=== PATIENT | female | born 1960 | race Caucasian/White ===

== ENCOUNTER → 2017-11-01 | Outpatient (CLI) | payer BC, OTHER ==
[2017-03-26 12:47] VITALS: BMI 52.8
[~2017-11-01] MED LIST: ALBU8.5H IH; BUDE10.2 INH; BUPR-474 PO; CIPR-214 PO; DOCU-416 PO; DULA0.75 INJ; GABA-549 PO; GLIP-154 PO; HYDR-385 PO; HYDR-4309 PO; LISI5TAB25 PO; LORA-630 PO; METF-420 PO; MONT10TA PO; OMEP40CA48 PO; ONDA4TAB97 PO; OXYB10TA21 PO; OXYB15TA17 PO; OXYC-865 PO; PHEN200T32 PO; PRAM0.1221 PO; SIMV-49 PO; SULF-198 PO; TAMS0.4C25 PO; TRAZ150T8 PO
--- NOTE | 2017-11-01 17:22 | RADIOLOGY IMAGING REPORT ---
FACILITY: [facility] [place]IENT NAME: Shani Butler : 1960 MR: [id number] V: [id number] EXAM DATE: ORDERING PHYSICIAN: PATRICIA GOODWIN TECHNOLOGIST: Location: [facility] - [place] Patient: Shani Butler : 1960 Visit/Account:[id number] Date of Sevice: 11/01/2017 ABDOMEN PELVIS ESWL CYSTO W/O HISTORY: Kidney stones, left-sided pain TECHNIQUE: Axial images acquired through the abdomen/pelvis. Coronal and sagittal reformatting also performed. No IV contrast administered. Dose Lowering Technique One of the following dose optimization techniques was utilized in the performance of this exam: Autom ated exposure control; adjustment of the mA and/or kV according to the patient's size; or use of an i terative reconstruction technique. Specific details can be referenced in the facility's radiology C T exam operational policy. COMPARISON: June 12, 2017 FINDINGS: Visualized lung bases: Again noted is incompletely imaged 1 cm nodule anterior medial inferior right middle lobe. There is an additional 4 mm noncalcified nodule inferior aspect of the lingula on imag e six of series 3 and a 3 mm subpleural nodule posterior aspect the right lower lobe best seen on neelima ge 13 of series 3. There is a 5 mm subpleural nodule posterior aspect of the left lower lobe best se en on image 67 and several other tiny nodules in the lower lobes . These all appear unchanged when compared to the prior study Hepatobiliary: Hepatomegaly. Cholelithiasis although no evidence of biliary ductal dilatation Spleen: Negative. Adrenals: Mild thickening of the adrenal glands similar to the prior study Pancreas: Negative. Kidneys ureters and bladder: At least three calcif calcifications are seen in the lower pole calyces of the right kidney, the largest measuring approximately 6 mm x 2 mm. there are multiple calcificati ons in the left renal collecting system but appears similar to the prior study in size and number. T he largest on the left measures approximately 1.5 x 0.8 cm there is no evidence of hydronephrosis or hydroureter. On the sagittal images are suggestion of a faintly opaque space-occupying process along the floor the bladder. There are numerous artifacts present for this could be artifactual although bladder mass not excluded. Genitalia: Uterus appears atrophic GI: Negative. Vessels/spaces/nodes: Negative. Bones/soft tissues: There are numerous artifacts from pedicle screws and short segment posterior fix ation rods at L4, L5 and S1. Additional findings: None pertinent. IMPRESSION: There are nonobstructing calcifications in both renal collecting systems. The greatest burden is on the left. There is no evidence of hydronephrosis or hydroureter On the sagittal images there suggestion of a faintly opaque space-occupying process along the floor t he bladder. There are numerous artifacts present there for this could be artifactual although a blad irwin mass cannot be totally ruled out Hepatomegaly Cholelithiasis although no evidence of biliary ductal dilatation Multiple bilateral pulmonary nodules. The largest measures 1 cm in diameter. These all appear relat ively unchanged when compared to June 12, 2017 For nodules this size in a low-risk patient (minimal or absent smoking history, no history of malignancy), a 3-6 month follow-up CT is recommended, then consider CT at 18-24 months. In a high risk patient, (smoking or malignancy history), a CT at 3-6 mon ths then at 18-24 months is recommended. Additional chronic findings as described Report Dictated By: Faye Colvin MD at 11/01/2017 5:06 PM Report E-Signed By: Faye Colvin MD at 11/01/2017 5:18 PM WSN:[email or web address]
== END ==
LOC: CT 01:32
PROVIDERS: ATTEND Urology
DX: N20.0 Calculus of kidney (principal); R91.8 Other nonspecific abnormal finding of lung field; R16.0 Hepatomegaly, not elsewhere classified; K80.20 Calculus of gallbladder without cholecystitis without obstruction
CPT/HCPCS: 74176

== ENCOUNTER 2017-12-05 00:52 | Day surgery (SDC) | payer BC ==
[2017-03-26 12:47] VITALS: Ht 172.7 cm; Wt 155.6 kg
--- NOTE | 2017-12-02 14:54 | HISTORY AND PHYSICAL ---
DATE OF ADMISSION: December 05, 2017 CHIEF COMPLAINT Bilateral kidney stones with left greater than right. 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 She subsequently underwent stent placement with treatment of her infection and was subsequently taken to the operating room in March and April for extracorporeal shock wave lithotripsy. Her stent was removed in the office afterwards. A followup CT stone protocol was performed, and she was still noted to have some significant residual stone fragments in the left system which had not significantly changed since her last followup x-ray in May. She also had two stones in the right side which were slightly increased in size, the largest measuring approximately 6 x 3 mm. Options were discussed including percutaneous nephrostomy tube with PCNL versus ESWL versus ureteroscopy. The patient is significantly reluctant to undergo a percutaneous nephrostomy tube placement with treatment. I have informed her that she will likely need two to three treatments to render her stone-free. The current plan is to perform anesthetic cystoscopy, followed by left stent placement with extracorporeal shock wave lithotripsy with a planned return to the operating room in four to six weeks afterwards for stent removal with likely ureteroscopy to remove any remaining stone fragments. After the left side is complete, we will address the right and then proceed with metabolic evaluation. PAST MEDICAL HISTORY 1. Hypercholesterolemia. 2. Obesity. 3. Gastroesophageal reflux disease. 4. Chronic low back pain. 5. Hypertension. 6. Anxiety with depression. 7. Type 2 diabetes. 8. Kidney stones. 9. Anemia. 10. Asthma. 11. Obstructive sleep apnea, on CPAP. 12. Restless leg syndrome. 13. Pulmonary nodules. PAST SURGICAL HISTORY 1. Low back surgery. 2. As per HPI. 3. Colonoscopy. CURRENT MEDICINES 1. Albuterol. 2. Symbicort. 3. Wellbutrin. 4. Neurontin. 5. Oxygen. 6. Glipizide. 7. Hydrocortisone. 8. Acetaminophen. 9. Lorazepam. 10. Metformin. 11. Singulair. 12. Omeprazole. 13. Mirapex. 14. Simvastatin. 15. Trazodone. 16. CPAP. ALLERGIES No known drug allergies. FAMILY HISTORY Noncontributory. SOCIAL HISTORY The patient lives in [place], [place]. She does have a smoking history in the past. REVIEW OF SYSTEMS The patient denies a productive cough, chest pain, fever, chills, nausea, vomiting, gross hematuria, change in weight, bleeding disorder, chronic headaches, or muscle weakness. PHYSICAL EXAMINATION GENERAL: The patient is a well-developed, moderately obese, white female in no acute distress. HEENT: Normocephalic, atraumatic. CHEST: Clear to auscultation bilaterally. CARDIOVASCULAR: Regular rate and rhythm. ABDOMEN: Soft, nontender. No masses are palpated. GENITOURINARY: Deferred to the OR. EXTREMITIES: Without clubbing, cyanosis, or edema. NEUROLOGIC: Nonfocal. IMPRESSION A 57-year-old white female with several medical problems with bilateral kidney stones, left greater than right. PLAN We will perform anesthetic cystoscopy, left stent placement, followed by extracorporeal shock wave lithotripsy. We will plan to return to the operating room in four to six weeks for stent removal and followup stone treatment as indicated. CHE
[2017-12-03 17:08] LABS: PLATELET COUNT, AUTOMATED 334 K/uL (150-450)
[2017-12-03 17:18] LABS: INR 0.98
[2017-12-05] VITALS (8 sets, daily range): BP systolic 109–137; BP diastolic 74–88
[~2017-12-05] VITALS: Ht 172.7 cm; Wt 155.6 kg
[~2017-12-05 00:52] MED LIST changes: +BUS5 PO
[2017-12-05] MEDS ORDERED: fentaNYL CITR 100 MCG/2 ML AMP ONE ×3 (09:02→13:58)
[2017-12-05] MEDS ORDERED: PROPOFOL EMUL(*) 10MG/ML 20 ML 20 ML ONE ×3 (09:03→12:03)
[2017-12-05] MEDS ORDERED: LIDOCAINE 2% IV 100 MG/5ML SYR ONE (09:03)
[2017-12-05] MEDS: NORMOSOL R SOLN(*) 1000 ML BAG 1,000 ML IV PRN ×2 (09:44→13:00)
[2017-12-05] MEDS ORDERED: FAMOTIDINE 20 MG TAB PO ONE (10:05)
[2017-12-05] MEDS ORDERED: LIDOCAINE/SOD BICARB 8.4% SYR ID ONE (10:05)
[2017-12-05] MEDS ORDERED: ceFAZolin(*) 2GM/D5W 50ML 50 ML IVPB ONE (10:05)
[2017-12-05] MEDS ORDERED: MIDAZOLAM 2 MG/2 ML VIAL IVP PRN (10:05)
--- NOTE | 2017-12-05 10:53 | RADIOLOGY IMAGING REPORT ---
FACILITY: [facility] - [place] PATIENT NAME: Shani Butler : 1960 MR: [id number] V: [id number] EXAM DATE: ORDERING PHYSICIAN: PATRICIA GOODWIN TECHNOLOGIST: Location: [facility] - [place] Patient: Shani Butler : 1960 Visit/Account:[id number] Date of Sevice: 12/05/2017 ABDOMEN PELVIS ESWL CYSTO W/O HISTORY: Kidney stones TECHNIQUE: Axial images were obtained through the abdomen and pelvis without intravenous contrast . One of the following dose optimization techniques was utilized in the performance of this exam: autom ated exposure control; adjustment of the mA and/or kv according to patient size; or use of iterative reconstruction technique. Specific details can be referenced in the facility's radiology CT exam oper ational policy. CONTRAST: None COMPARISON: CT abdomen/pelvis 11/01/2017 FINDINGS: Visualized lung bases: Negative. Hepatobiliary: Gallstones. Spleen: Negative. Adrenals: Negative. Pancreas: Negative. Kidneys/ureters/bladder: Reidentified are multiple nonobstructing bilateral renal calculi. Branchin g calculi within the lower pole the left kidney measuring up to 8 x 8 mm (coronal image 134). No rad iopaque ureteral calculus. No discrete bladder calculus. No hydronephrosis. Bowel/peritoneum/mesentery: Normal appendix. Mild colonic diverticulosis without acute inflammatory change. Vessels: Negative. Lymph nodes: Stable mildly enlarged bilateral external iliac lymph node measuring 1.4 x 1.4 cm on the right (image 149). Stable mildly enlarged bilateral inguinal lymph nodes with fatty hilum. Pelvic genitourinary: Negative. Bones/body wall: L4-S1 posterior fusion. Multilevel [id number]-[id number] degenerative disc disease with in the spine. Tiny umbilical hernia containing fat. Other findings: None significant IMPRESSION: 1. Reidentified are multiple nonobstructing bilateral renal calculi measuring up to 8 x 8 mm. No ur eteral calculus or hydronephrosis. 2. Gallstones. 3. Stable mildly enlarged bilateral external iliac and inguinal lymph nodes. Report Dictated By: Baldemar Mayorga MD at 12/05/2017 10:38 AM Report E-Signed By: Baldemar Mayorga MD at 12/05/2017 10:48 AM WSN:[id number]
[2017-12-05] MEDS ORDERED: IOPAMIDOL-200 50 ML VIAL IS ONE (11:34)
[2017-12-05] MEDS ORDERED: DEXAMETHASONE SOD 4 MG/ML VIAL ONE (11:58)
[2017-12-05] MEDS ORDERED: ONDANSETRON 4 MG/2 ML VIAL ONE (11:59)
[2017-12-05] MEDS ORDERED: SUCCINYLCHOL CHL 200MG/10ML VL ONE (12:00)
[2017-12-05] MEDS ORDERED: NS 0.9% 3000 ML IRRIGATION BAG IR ONE (12:10)
[2017-12-05] MEDS ORDERED: PROPOFOL EMUL(*) 10MG/ML 20 ML 40 ML ONE (12:17)
[2017-12-05] MEDS ORDERED: WATER STERILE IRRIG(*) 1000ML 1,000 ML ONE (12:58)
[2017-12-05] MEDS ORDERED: BELLADONNA ALK/OPIUM 60MG SUPP PR ONE (13:24)
[2017-12-05] MEDS ORDERED: TAMS0.4C25 PO (13:36)
[2017-12-05] MEDS ORDERED: OXYB15TA14 PO (13:37)
[2017-12-05] MEDS ORDERED: PHEN200T32 PO (13:38)
[2017-12-05] MEDS ORDERED: IBUP600T22 PO (13:39)
[2017-12-05] MEDS ORDERED: APAP/HYDROCODONE 325/5 TAB ONE (15:24)
[2017-12-05] MEDS ORDERED: busPIRone HCL 5 MG TAB PO ONE (15:50)
--- NOTE | 2017-12-06 08:42 | OPERATIVE REPORT 1 ---
EVENT DATE: December 05, 2017 SURGEON: Dimas Escalante MD ANESTHESIOLOGIST: Pal Whitman MD ANESTHESIA: General. PREOPERATIVE DIAGNOSIS Bilateral renal calculi. POSTOPERATIVE DIAGNOSIS Bilateral renal calculi. PROCEDURE PERFORMED 1. Cystoscopy. 2. Left internal double J ureteral stent placement. 3. Left extracorporeal shockwave lithotripsy of mid pole and lower pole calculi on left. ESTIMATED BLOOD LOSS Minimal. IV FLUIDS Crystalloids. DRAINS 6 Ethiopian x 24 cm Contour stent on left. COMPLICATIONS None. CONDITION Patient taken to the recovery room awake and in stable condition. 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 She subsequently underwent stent placement followed by lithotripsy x 2. Patient returned to the clinic this past fall with continued significant stone burden. Options were discussed, including percutaneous nephrostomy tube placement versus ureteroscopy and/or repeat ESWL. She has elected to undergo the latter. She understands that with her remaining stone burden, these likely appear to be several remaining fragments in her mid and lower pole calyceal system. I would like to perform a stent placement for passive ureteral dilation with ESWL to be followed by ureteroscopy with removal of stone fragments in several weeks. She will also need treatment of her right side, which has been showing slight increase in size over the past nine months, and will ultimately require metabolic evaluation. DESCRIPTION OF PROCEDURE PERFORMED Patient was brought to the operating room, and after general anesthetic was obtained, she was placed in the dorsal lithotripsy position on the cystoscopic table and prepped and draped in usual sterile manner. Anesthetic cystoscopy was performed using the 21-Ethiopian rigid sheath and 30 degree lens. She had a normal-appearing urethra without bladder neck inflammatory polyps or strictures. Upon entering her bladder, it was smooth without lesions or abnormalities. The left ureteral orifice was cannulated with a 6 Ethiopian open end access catheter, which was advanced to the mid ureter under fluoroscopic imaging. A 0.035 wire was placed up into the lumen of the access catheter. The access catheter was removed, and the wire was used to place a 6 Ethiopian x 24 cm stent. The wire was removed. She was noted to have good curling in the bladder by direct vision and good curling in the lower pole calyces by fluoroscopic imaging. The patients bladder was drained through the cystoscopic sheath. She was then repositioned supine, and the stone collection in the mid pole was placed in the lithotripsy cross hairs in two dimensions. Treatment was begun at a power setting of 2 and gradually increased to a power setting of 3 over the course of the first 300 shocks. A 3-minute pause was then performed, and treatment was resumed. The power was gradually increased to a power setting of 9 over the course of the first 1500 shocks. Following this, the cross hairs were placed down on the lower pole calculi. Again, treatment was begun here at a power setting of 7.5 and gradually increased to a power setting of 9. She received a total of 3000 shocks to the left mid and lower pole stones. At the conclusion of treatment, no significant stone fragments could be identified. She was awakened in the operating room and taken to the recovery area in stable condition. The plan will be to allow the patient to be discharged home today on Flomax, Colace, Barling, Pyridium, Ditropan XL and Motrin. We will have her return to the operating room in approximately 2-4 weeks for stent removal ureteroscopy and followup ESWL as indicated. CHE
== END 2017-12-05 14:30 | disposition home or self-care (01) ==
LOC: OR 00:52
PROVIDERS: ATTEND Urology
DX: N20.0 Calculus of kidney (principal); E11.9 Type 2 diabetes mellitus without complications; I10 Essential (primary) hypertension; E78.00 Pure hypercholesterolemia, unspecified; Z79.899 Other long term (current) drug therapy; G47.33 Obstructive sleep apnea (adult) (pediatric); D64.9 Anemia, unspecified; M54.5 Low back pain; E66.9 Obesity, unspecified; K21.9 Gastro-esophageal reflux disease without esophagitis; Z99.81 Dependence on supplemental oxygen; F41.9 Anxiety disorder, unspecified; F32.9 Major depressive disorder, single episode, unspecified; Z87.442 Personal history of urinary calculi; G25.81 Restless legs syndrome; J45.909 Unspecified asthma, uncomplicated
CPT/HCPCS: 36415; 36416; 50590; 52332; 74176; 81001; 82948; 85025; 85610; 94667; J0330; J1100; J2001; J2405; J2704; J3010; J0690; Q9966

== ENCOUNTER → 2017-12-09 | Outpatient (CLI) | payer BC ==
[2017-03-26 12:47] VITALS: BMI 52.8
[~2017-12-09] MED LIST changes: +IBUP600T22 PO; +OXYB15TA14 PO
--- NOTE | 2017-12-09 14:55 | RADIOLOGY IMAGING REPORT ---
FACILITY: PATIENT NAME: Shani Butler : 1960 MR: [id number] V: [id number] EXAM DATE: ORDERING PHYSICIAN: PATRICIA GOODWIN TECHNOLOGIST: Location: [place] [facility] - [place] Patient: Shani Butler : 1960 Visit/Account:[id number] Date of Sevice: 12/09/2017 ADDENDUM #1 Findings of no acute abnormality telephoned directly to the ordering provider by the radiology ISC. Report Dictated By: Ryland Hyatt MD at 12/09/2017 2:52 PM Report E-Signed By: Ryland Hyatt MD at 12/09/2017 2:53 PM ORIGINAL REPORT INDICATION: . Check position of nephroureteral stent. DATE: 12/09/2017 2:49 PM. TECHNIQUE: KUB SINGLE VIEW ABDOMEN COMPARISON: CT December 05, 2017 FINDINGS: The nephroureteral stent is within the bladder distally and probably within renal pelvis pr oximally, although the kidney is poorly defined radiographically. IMPRESSION: As above. Report Dictated By: Ryland Hyatt MD at 12/09/2017 2:49 PM Report E-Signed By: Ryland Hyatt MD at 12/09/2017 2:50 PM WSN:[id number]
== END ==
LOC: RAD 14:02
PROVIDERS: ATTEND Urology
DX: N20.0 Calculus of kidney (principal)
CPT/HCPCS: 74018

== ENCOUNTER 2017-12-22 03:15 | Day surgery (SDC) | payer BC ==
[2017-03-26 12:47] VITALS: Ht 172.7 cm; Wt 155.1 kg
--- NOTE | 2017-12-21 17:22 | HISTORY AND PHYSICAL ---
DATE OF ADMISSION: December 22, 2017 DIAGNOSIS Bilateral renal calculi with left indwelling ureteral stent. HISTORY OF PRESENT ILLNESS Patient is a 57-year-old female who originally presented with emphysematous pyelitis in March of this past year secondary to a 1.2 cm UPJ stone, in addition to having several smaller stones. She subsequently underwent stent placement and appropriate antibiotic treatment, and then had lithotripsy times two performed in the summer. In followup she was noted to have an increasing stone burden on the right side, as well as increasing in her residual stones on the left. She currently has three areas in the left lower pole consistent with retained stone fragments, each measuring approximately 13 x 5 in area. She subsequently was taken back to the operating room on December 05, and underwent left double-J stent placement followed by left extracorporeal shock wave lithotripsy of these lower mid pole stones. She is now being returned to the operating room for planned follow-up stage ureteroscopy with laser fragmentation and/or removing of any remaining stone fragments. PAST MEDICAL HISTORY 1. Hypercholesterolemia. 2. Obesity. 3. Gastroesophageal reflux disease. 4. Chronic low back pain. 5. Hypertension. 6. Anxiety. 7. Type 2 diabetes. 8. Kidney stones. 9. Anemia. 10. Obstructive sleep apnea on CPAP. 11. Asthma. 12. Restless leg syndrome. 13. Pulmonary nodules. PAST SURGICAL HISTORY 1. Low back surgery. 2. Colonoscopy. 3. Extracorporeal shock wave lithotripsy with left renal stent placement as per HPI. CURRENT MEDICINES 1. Albuterol. 2. Symbicort. 3. Wellbutrin. 4. Neurontin. 5. Oxygen. 6. Glipizide. 7. Hydrocortisone. 8. Acetaminophen. 9. Lorazepam. 10. Metformin. 11. Singulair. 12. Omeprazole. 13. Mirapex. 14. Simvastatin. 15. Trazodone. 16. CPAP. ALLERGIES No known drug allergies. FAMILY HISTORY Noncontributory. REVIEW OF SYSTEMS Patient denies chest pain productive cough, fevers, chills, nausea, vomiting, bleeding disorder, chronic headaches. She has been complaining of some moderate left flank pain and bladder irritating symptoms consistent with stent discomfort. PHYSICAL EXAMINATION GENERAL: Patient is a well-developed, moderately obese white female in no acute distress. HEENT: Exam is normocephalic, atraumatic. CHEST: Clear to auscultation bilaterally. CARDIOVASCULAR: Regular rate and rhythm. ABDOMEN: Soft, nontender. No masses are palpated. GENITOURINARY: Exam is deferred to the OR. EXTREMITIES: Exam without clubbing, cyanosis or edema. NEUROLOGIC: Exam is nonfocal. IMPRESSION A 57-year-old white female with bilateral kidney stones with left greater than right, with current indwelling stent on the left side status post lithotripsy two and a half weeks ago. PLAN We will perform anesthetic cystoscopy, stenst removal, ureteroscopy with laser fragmentation and removing of remaining left stone fragments. Patient understands she has a significant stone burden on this left side which may require several ureteroscopy type treatments to render her stone free. She has also been given the option for percutaneous nephrolithotomy several times in the past which she has declined. CHE
[~2017-12-22] VITALS: Ht 172.7 cm; Wt 155.1 kg
[2017-12-22] MEDS ORDERED: ceFAZolin(*) 1 GM VIAL 1 GM in NS(*) 0.9% 100 ML ADDVANT BAG 100 ML IV ONE (08:20)
[2017-12-22] MEDS ORDERED: MIDAZOLAM 2 MG/2 ML VIAL IVP PRN (08:20)
[2017-12-22] MEDS ORDERED: ceFAZolin(*) 2GM/D5W 50ML 50 ML IVPB ONE (08:20)
[2017-12-22] MEDS ORDERED: LIDOCAINE/SOD BICARB 8.4% SYR ID ONE (08:20)
[2017-12-22] MEDS ORDERED: FAMOTIDINE 20 MG TAB PO ONE (08:20)
[2017-12-22] MEDS ORDERED: NORMOSOL R SOLN(*) 1000 ML BAG 1,000 ML IV PRN (08:20)
[2017-12-22 09:36] LABS: INR 0.92
[2017-12-22] MEDS ORDERED: PROPOFOL EMUL(*) 10MG/ML 20 ML 20 ML ONE ×2 (09:39→10:02)
[2017-12-22] MEDS ORDERED: DEXAMETHASONE SOD PHOS 10MG/ML ONE (10:02)
[2017-12-22] MEDS ORDERED: ONDANSETRON 4 MG/2 ML VIAL ONE ×2 (10:02→16:03)
[2017-12-22] MEDS ORDERED: LIDOCAINE MPF 1% 5 ML VIAL ONE ×2 (10:02→13:41)
[2017-12-22 10:06] VITALS: BP 111/77
[2017-12-22] MEDS ORDERED: fentaNYL CITR 250 MCG/5 ML AMP ONE (10:08)
[2017-12-22] MEDS ORDERED: IOPAMIDOL-200 50 ML VIAL IS ONE (10:52)
[2017-12-22] MEDS ORDERED: KETOROLAC 30 MG/ML VIAL ONE ×2 (10:59→16:03)
[2017-12-22] MEDS ORDERED: SUCCINYLCHOL CHL 200MG/10ML VL ONE (11:00)
[2017-12-22] MEDS ORDERED: HALOPERIDOL LACT 5 MG/ML VIAL IM ONE (11:34)
[2017-12-22] MEDS ORDERED: BELLADONNA ALK/OPIUM 60MG SUPP PR ONE (12:09)
[2017-12-22] MEDS ORDERED: WATER STERILE IRRIG(*) 1000ML 1,000 ML ONE (13:02)
[2017-12-22] MEDS ORDERED: FUROSEMIDE 40 MG/4 ML VIAL ONE (13:46)
[2017-12-22] MEDS ORDERED: fentaNYL CITR 100 MCG/2 ML AMP ONE (14:20)
--- NOTE | 2017-12-22 14:23 | RADIOLOGY IMAGING REPORT ---
FACILITY: [facility] - [place] PATIENT NAME: Shani Butler : 1960 MR: [id number] V: [id number] EXAM DATE: ORDERING PHYSICIAN: PATRICIA GOODWIN TECHNOLOGIST: Location: [facility] - [place] Patient: Shani Butler : 1960 Visit/Account:[id number] Date of Sevice: 12/22/2017 ABDOMEN PELVIS ESWL CYSTO W/O HISTORY: L ESWL TECHNIQUE: Axial images acquired through the abdomen/pelvis. Coronal and sagittal reformatting also performed. No IV contrast administered. Dose Lowering Technique One of the following dose optimization techniques was utilized in the performance of this exam: Autom ated exposure control; adjustment of the mA and/or kV according to the patient's size; or use of an i terative reconstruction technique. Specific details can be referenced in the facility's radiology C T exam operational policy. COMPARISON: December 05, 2017 FINDINGS: Visualized lung bases: Negative. Hepatobiliary: Liver is incompletely imaged although the visualized portion of the liver appears unr emarkable. There are multiple gallstones although no evidence of biliary ductal dilatation Spleen: Incompletely imaged although the visualized portion appears unremarkable Adrenals: Incompletely imaged although the visualized portion appears unremarkable Pancreas: Incompletely imaged although the visualized portion appears unremarkable Kidneys ureters and bladder: Again noted are nonobstructing calculi in both renal collecting systems there is now a left ureteral stent in place the stone burden in the left kidney appears slightly less no calculi are seen along the course of the left ureteral stent. Genitalia: Negative. GI: Mild colonic diverticulosis without evidence of acute diverticulitis Vessels/spaces/nodes: Fatty replaced bilateral inguinal lymph nodes appear unchanged as are the bila teral external iliac lymph nodes. The 1.4 x 1.4 right external iliac lymph node specifically has re mained stable Bones/soft tissues: Small focal hernia containing fat. Postoperative changes of the lumbar spine ap pear similar to the prior study as to the spondylotic changes throughout remainder the lumbar spine Additional findings: None pertinent. IMPRESSION: There are nonobstructing renal calculi bilaterally. The stone burden on the left appear slightly dec reased Interval placement of a left ureteral stent with no calculi seen along the course of the stent Cholelithiasis although no evidence of biliary ductal dilatation Stable bilateral external iliac and inguinal lymph nodes Additional chronic findings as described Report Dictated By: Faye Colvin MD at 12/22/2017 2:01 PM Report E-Signed By: Faye Colvin MD at 12/22/2017 2:19 PM WSN:[email or web address]
[2017-12-22] MEDS ORDERED: PER PO (14:31)
[2017-12-22] MEDS ORDERED: PHENAZOPYRIDINE 200 MG TAB ONE (14:46)
--- NOTE | 2017-12-22 15:08 | RADIOLOGY IMAGING REPORT ---
FACILITY: [facility] PATIENT NAME: Shani Butler : 1960 MR: [id number] V: [id number] EXAM DATE: ORDERING PHYSICIAN: PATRICIA GOODWIN TECHNOLOGIST: Location: [facility] Patient: Shani Butler : 1960 Visit/Account:[id number] Date of Sevice: 12/22/2017 RETROGRADE PYELOGRAM Indication: URETERAL STONES Comparison: None. Findings: Images from a left retrograde ureterogram are obtained. Final image demonstrates a left si ded double J stent. IMPRESSION: Intraoperative images from a left-sided double-J stent. Radiation dose: AK 119.28 mGy Report Dictated By: Yo Boothe at 12/22/2017 3:03 PM Report E-Signed By: Yo Boothe at 12/22/2017 3:04 PM WSN:[id number]
[2017-12-22 15:40] VITALS: BP 106/69
[2017-12-22 15:45] VITALS: BP 111/63
[2017-12-22] MEDS ORDERED: OXYTOCIN 10 UNIT/ML SDV ONE (16:03)
[2017-12-22] MEDS ORDERED: ePHEDrine 25 MG/5 ML DISP.SYR IVP ONE (16:03)
[2017-12-22 16:07] VITALS: BP 105/65
[2017-12-22 16:09] VITALS: BP 116/78
--- NOTE | 2017-12-22 19:41 | OPERATIVE REPORT 1 ---
EVENT DATE: December 22, 2017 SURGEON: Dimas Escalante MD ANESTHESIOLOGIST: Kane Kim MD ANESTHESIA: General anesthetic. PREOPERATIVE DIAGNOSIS Left renal calculi. POSTOPERATIVE DIAGNOSIS Left renal calculi. PROCEDURES PERFORMED 1. Cystoscopy. 2. Grasping and removal of left double-J ureteral stent. 3. Left retrograde flexible ureteroscopy through a ureteral access sheath with grasping and removal of multiple stones numbering close to 200. 4. Replacement of left internal double-J ureteral stent. ESTIMATED BLOOD LOSS Minimal. INTRAVENOUS FLUIDS Crystalloid. DRAINS A 6-Omani x 26 cm Contour stent on left. PATHOLOGY Multiple stone fragments sent to Pathology for analysis. COMPLICATIONS None. CONDITION The patient was taken to the recovery room awake and in stable condition. STATEMENT OF MEDICAL NECESSITY The patient is a 67-year-old white female with a history of kidney stones who several months ago presented with a large UPJ stone and pyelitis. She was subcutaneously treated. She underwent lithotripsy of the stone. In addition to the stone at the UPJ, she had several stones in the lower pole measuring 4 to 8 mm in size. A followup x-ray revealed significant improvement in the stone burden on that side. However, on a delayed followup, she was noted to have an increasing stone burden on that side as well as new stones on the right side which have increased in size. Her preoperative x-ray today reveals four stones in the right kidney measuring from 3 to 6 mm in size. On the left side, she has multiple collections of stone fragments in mainly the lower pole. This is less than it was two weeks ago before lithotripsy. She is now being brought to the operating room for staged ureteroscopy to fragment and/or remove any of the remaining stone fragments on the left side after being pre-stented for two weeks. DESCRIPTION OF OPERATION PERFORMED The patient was brought to the operating room after general anesthetic was obtained. She was placed in the dorsal lithotomy position and prepped and draped in the usual sterile fashion. Anesthetic cystoscopy was performed with the 21-Omani Wei sheath and a 30-degree lens. The stent was seen emanating from the left ureteral orifice. Its distal end was grasped and brought out through the meatus. The lumen of the stent was cannulated with a sensor wire which was advanced up to the upper pole calyx. The stent was then removed, and then this wire was used to place an 18 dilating system with a second wire placed alongside the first wire inside the 10 sheath. The 10 sheath was removed. One wire was secured to the drapes as a safety wire, and the next wire was used to place ureteral access sheath. An 11 x 13-Omani x 36 cm access sheath was used. First, the obturator was placed over the wire which was advanced easily up to the mid ureter, and the obturator was then removed and replaced in the sheath. The combination was advanced over the wire under fluoroscopic imaging up to the proximal ureter. At this point, the obturator removed leaving the sheath in place. The Wei flexible ureteroscope was advanced, and a retrograde renoureteroscopy was performed. The entire kidney starting at the upper pole proceeding to the lower pole was inspected. There were no residual stone fragments in the upper pole calyces. There were a few in the mid pole. The majority of stone fragments were noted in the posterior lower pole calyces. There was a significant number of fragments in the lower pole with the largest fragment measuring approximately 3 mm in size. At this point, vigorous irrigation of the lower pole calyces was performed to irrigate and move the stone fragments up to the upper and mid poles. After this was performed, the [employer] basket was next used to sequentially engage and grasp stone fragments under direct vision and bring them down the ureteral access sheath where they were collected. This was done multiple times over the course of two hours. A total of approximately 200 stone fragments were sequentially grasped and removed. No fragments were identified that were too large to be removed through the 13-Omani access sheath. After two hours of extensive ureteroscopy and grasping of these fragments, visualization began to deteriorate from a slight bleeding from the urothelium. At this point, I again inspected each calyx, this time starting in the lower pole and irrigating them vigorously. There were no stones visualized in any of the three lower pole calyces. There were one to two smaller fragments in the mid pole and a handful of smaller fragments in the upper pole. No fragment was larger than 2 mm in size. At this point the scope was removed, followed by gentle removal of the access sheath under fluoroscopic imaging. The safety wire was then backloaded into the cystoscope, and this was used to place a 6-Omani x 26 cm Contour stent on the left side. The wire was removed. She was noted to have good curling in an upper pole calyx and good curling in the bladder by direct vision. The patient's bladder was drained through the cystoscopic sheath. A B and O suppository was given per rectum at the conclusion of the case. She was awakened in the operating room and taken to the recovery area in stable condition. PLAN The plan will be to allow the patient to be discharged home today on Percocet, Colace, Motrin, Ditropan XL 15 mg, Pyridium, and Flomax. We will have the patient return to the operating room in approximately two weeks' time to ensure that the left system is stone-free with removal of the stent at that time and then proceed with ureteroscopy and/or extracorporeal shock wave lithotripsy on the right side before proceeding with a metabolic evaluation. CHE
[2017-12-27] MEDS ORDERED: LISI5TAB25 PO (15:13)
== END 2017-12-22 15:40 | disposition home or self-care (01) ==
LOC: OR 03:15
PROVIDERS: ATTEND Urology
DX: N20.0 Calculus of kidney (principal); E11.9 Type 2 diabetes mellitus without complications; I10 Essential (primary) hypertension; D64.9 Anemia, unspecified; E66.9 Obesity, unspecified; K21.9 Gastro-esophageal reflux disease without esophagitis; F41.9 Anxiety disorder, unspecified; Z87.442 Personal history of urinary calculi; G47.33 Obstructive sleep apnea (adult) (pediatric); Z79.899 Other long term (current) drug therapy; Z99.81 Dependence on supplemental oxygen
CPT/HCPCS: 36415; 36416; 52332; 52352; 74176; 74420; 82365; 82948; 84703; 85610; 88300; C1758; C1769; C1894; C2617; J0330; J1100; J1630; J1885; J1940; J2001; J2250; J2405; J2590; J2704; J3010; Q9966; J0690

== ENCOUNTER 2017-12-26 14:19 | Emergency (ER) | payer BC ==
[2017-03-26 12:47] VITALS: Wt 155.1 kg
[~2017-12-26 14:19] MED LIST changes: +PER PO
[2017-12-26 14:25] VITALS: BP 125/85
[2017-12-26] MEDS ORDERED: NITROGLYCERIN 0.4 MG SUBL SL ONE (14:40)
[2017-12-26] MEDS ORDERED: ASPIRIN 81 MG CHEW PO ONE (14:40)
--- NOTE | 2017-12-26 14:49 | EKG ---
[place] [facility] [place] NAME: AMEE OROSCO : [id number] MR: [id number] V: [id number] EXAM DATE: ORDERING PHYSICIAN: GEORGE JONES TECHNOLOGIST: NAIMA Wilhelm Reason : CHEST PAIN Blood Pressure : / mmHG Vent. Rate : 077 BPM Atrial Rate : 077 BPM P-R Int : 166 ms QRS Dur : 092 ms QT Int : 394 ms P-R-T Axes : 057 056 062 degrees QTc Int : 445 ms Normal sinus rhythm Normal ECG When compared with ECG of 25-MAR-2017 11:32, No significant change was found Confirmed by KATIE BLANTON ([id number]) on 12/27/2017 4:08:53 AM Referred By: KAREN Confirmed By:KATIE BLANTON
[2017-12-26] MEDS ORDERED: LORazepam 2 MG/ML VIAL IVP ONE (14:50)
--- NOTE | 2017-12-26 14:54 | ER Report ---
History and Physical Time Seen By MD: 14:25 Hx. of Stated Complaint: LEFT SHOULDER, CHEST PAIN, AND LEFT ARM PAIN SINCE TUESDAY HPI/ROS CHIEF COMPLAINT: Chest pain HISTORY OF PRESENT ILLNESS: 57-year-old female without history of cardiac events or stroke presents with left-sided shoulder pain that is sharp and has been intermittent since lithotripsy on . About 6 out of 10 at this time. Denies associated nausea or diaphoresis or shortness of breath. Denies recent cough or cold viral syndrome syndrome or sore throat. Denies leg pain or swelling. Denies prior blood clots. Denies estrogen replacement therapy. Denies smoking. She admits to moderate to severe stress levels recently due to multiple causes. She is here today with her daughter. No other concerns or complaints today. REVIEW OF SYSTEMS: Constitutional: No fever, no chills. Eyes: No discharge. ENT: No sore throat. Cardiovascular: No syncope or near-syncope, no palpitations. Respiratory: No cough, no shortness of breath. Gastrointestinal: No abdominal pain, no vomiting. Genitourinary: No hematuria. Musculoskeletal: No back pain. Skin: No rashes. Neurological: No headache. Allergies: Coded Allergies: No Known Drug Allergies (Unverified , 06/12/17) Home Meds Active Scripts Ondansetron Hcl (ZOFRAN) 4 Mg Tablet, 4 MG PO Q6H Y for NAUSEA/VOMITING, #10 Prov:THOMAS KELLOGGYaritza Palafox DO 06/12/17 Reported Medications Oxycodone/Acetaminophen (OXYCODONE/ACETAMINOPHEN 5MG/325 MG) 5 Mg/325 Mg Tab, 1- 2 TAB PO Q6H Y for PAIN, #40 12/22/17 Ibuprofen (IBUPROFEN) 600 Mg Tablet, 1 TAB PO Q6H Y for PAIN, #20 TAB 12/05/17 Phenazopyridine Hcl (PHENAZOPYRIDINE HCL) 200 Mg Tablet, 200 MG PO TID Y for DISCOMFORT, #30 TAB 12/05/17 Oxybutynin Chloride (OXYBUTYNIN CHLORIDE ER) 15 Mg Tab.er.24, 15 MG PO QDAY Y for DISCOMFORT, TAB.SA 12/05/17 Tamsulosin Hcl (FLOMAX) 0.4 Mg Cap.er.24h, 0.4 MG PO DAILY, #30 CAP 12/05/17 Buspirone Hcl (BUSPIRONE HCL) 5 Mg Tab, 10 MG PO BID, #20 TAB 11/29/17 Docusate Sodium (COLACE) 100 Mg Capsule, 100 MG PO BID, #30 CAPSULE 05/23/17 Gabapentin (GABAPENTIN) 300 Mg Capsule, 300 MG PO EVENINGS, CAPSULE 05/17/17 Simvastatin (SIMVASTATIN) 20 Mg Tablet, 20 MG PO HS, TAB 03/25/17 Dulaglutide (Trulicity) 0.75 Mg/0.5 Ml Pen.injctr, 0.5 ML INJ QWEEK 03/25/17 Bupropion Hcl (WELLBUTRIN XL) 300 Mg Tab.er.24h, 300 MG PO QDAY, TAB 03/25/17 Glipizide (GLIPIZIDE) 10 Mg Tablet, 10 MG PO BID 03/25/17 Lorazepam (LORAZEPAM) 0.5 Mg Tablet, 0.5 MG PO Q4-6H Y for ANXIETY 03/25/17 Trazodone Hcl (TRAZODONE HCL) 150 Mg Tablet, 150 MG PO QHS 03/25/17 Metformin Hcl (METFORMIN HCL) 1,000 Mg Tablet, 1 TAB PO BID, TAB 03/25/17 Pramipexole Di-Hcl (PRAMIPEXOLE DIHYDROCHLORIDE) 0.125 Mg Tablet, 0.125 MG PO TID 03/25/17 Omeprazole (OMEPRAZOLE) 40 Mg Capsule.dr, 40 MG PO QDAY, CAP 03/25/17 Montelukast Sodium (SINGULAIR) 10 Mg Tablet, 1 TAB PO QDAY, TAB 03/25/17 Albuterol Sulfate 90 Mcg/Act (PROAIR HFA 90 MCG/ACT) 8.5 Gm Hfa.aer.ad, 2 PUFF IH Q4-6H Y for SHORTNESS OF BREATH, INHALER 03/25/17 Budesonide/Formoterol Fumarate (SYMBICORT 160-4.5 MCG INHALER) 10.2 Gm Inh, 10.2 GM INH DAILY, INH 03/25/17 Discontinued Reported Medications Hydrocodone Bit/Acetaminophen (NORCO 5-325 TABLET) 1 Each Tablet, 1-2 EACH PO Q6H Y for PAIN, #30 TAB 05/23/17 Hx Smoking: Yes (QUIT 1989. UP UNTIL THEN, SMOKED 1-2 PPD X 10 YRS) Smoking Status: Former Smoker Hx Substance Use Disorder: No Hx Alcohol Use: Yes Constitutional Vital Sign - Last 24 Hours 12/26/17 12/26/17 14:25 14:25 Temp 98.9 Pulse 88 Resp 24 B/P (MAP) 125/85 Pulse Ox 90 O2 Delivery Nasal Cannula O2 Flow Rate 4.0 Physical Exam General Appearance: The patient is alert, has no immediate need for airway protection and no signs of toxicity. No acute distress. Elevated BMI. Eyes: Pupils equal and round no pallor or injection. ENT, Mouth: Mucous membranes are moist. Respiratory: There are no retractions, lungs are clear to auscultation. Cardiovascular: Regular rate and rhythm. No murmurs gallops or rubs Gastrointestinal: Abdomen is soft and non tender, no masses, bowel sounds normal. Neurological: Normal gross neuro exam Skin: Warm and dry, no rashes. Musculoskeletal: Neck is supple non tender. Extremities are nontender, nonswollen and have full range of motion. No edema DIFFERENTIAL DIAGNOSIS: After history and physical exam differential diagnosis was considered for anxiety, pulmonary embolus, acute coronary syndrome, PA, pneumonia, aortic dissection, aortic aneurysm. 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 Medical Decision Making Data Points Result Diagram: 12/26/17 1444 12/26/17 1444 Laboratory Hematology Test 12/26/17 14:44 Red Blood Count 5.22 M/uL (4.17-5.56) Mean Corpuscular Volume 74.3 fL (80.0-96.0) Mean Corpuscular Hemoglobin 23.4 pg (26.0-33.0) Mean Corpuscular Hemoglobin Concent 31.4 g/dL (32.0-36.0) Red Cell Distribution Width 18.5 % (11.5-14.5) Mean Platelet Volume 7.5 fL (7.2-11.1) Neutrophils (%) (Auto) 67.0 % (39.4-72.5) Lymphocytes (%) (Auto) 24.2 % (17.6-49.6) Monocytes (%) (Auto) 6.2 % (4.1-12.4) Eosinophils (%) (Auto) 2.2 % (0.4-6.7) Basophils (%) (Auto) 0.4 % (0.3-1.4) Nucleated RBC Relative Count (auto) 0.0 /100WBC Neutrophils # (Auto) 6.2 K/uL (2.0-7.4) Lymphocytes # (Auto) 2.2 K/uL (1.3-3.6) Monocytes # (Auto) 0.6 K/uL (0.3-1.0) Eosinophils # (Auto) 0.2 K/uL (0.0-0.5) Basophils # (Auto) 0.0 K/uL (0.0-0.1) Nucleated RBC Absolute Count (auto) 0.00 K/uL Peripheral Blood Smear No Y/N D-Dimer Quantitative (PE/DVT) 0.45 ug/ml (0-0.50) Sodium Level 134 mmol/L (137-145) Potassium Level 4.3 mmol/L (3.5-5.0) Chloride Level 95 mmol/L (98-107) Carbon Dioxide Level 30 mmol/L (22-31) Blood Urea Nitrogen 13 mg/dl (7-18) Creatinine 0.70 mg/dl (0.52-1.04) Glomerular Filtration Rate Calc > 60.0 Random Glucose 161 mg/dl (75-110) Calcium Level 9.2 mg/dl (8.4-10.2) Total Bilirubin 0.5 mg/dl (0.2-1.3) Aspartate Amino Transf (AST/SGOT) 22 U/L (0-35) Alanine Aminotransferase (ALT/SGPT) 52 U/L (0-56) Alkaline Phosphatase 78 U/L (0-126) Troponin I < 0.012 ng/ml B-Type Natriuretic Peptide 32 pg/ml (0-100) Total Protein 7.8 gm/dl (6.3-8.2) Albumin 3.9 g/dl (3.5-5.0) Chemistry Test 12/26/17 14:44 White Blood Count 9.3 k/uL (4.5-11.0) Red Blood Count 5.22 M/uL (4.17-5.56) Hemoglobin 12.2 g/dL (12.0-16.0) Hematocrit 38.8 % (34.0-47.0) Mean Corpuscular Volume 74.3 fL (80.0-96.0) Mean Corpuscular Hemoglobin 23.4 pg (26.0-33.0) Mean Corpuscular Hemoglobin Concent 31.4 g/dL (32.0-36.0) Red Cell Distribution Width 18.5 % (11.5-14.5) Platelet Count 324 K/uL (150-450) Mean Platelet Volume 7.5 fL (7.2-11.1) Neutrophils (%) (Auto) 67.0 % (39.4-72.5) Lymphocytes (%) (Auto) 24.2 % (17.6-49.6) Monocytes (%) (Auto) 6.2 % (4.1-12.4) Eosinophils (%) (Auto) 2.2 % (0.4-6.7) Basophils (%) (Auto) 0.4 % (0.3-1.4) Nucleated RBC Relative Count (auto) 0.0 /100WBC Neutrophils # (Auto) 6.2 K/uL (2.0-7.4) Lymphocytes # (Auto) 2.2 K/uL (1.3-3.6) Monocytes # (Auto) 0.6 K/uL (0.3-1.0) Eosinophils # (Auto) 0.2 K/uL (0.0-0.5) Basophils # (Auto) 0.0 K/uL (0.0-0.1) Nucleated RBC Absolute Count (auto) 0.00 K/uL Peripheral Blood Smear No Y/N D-Dimer Quantitative (PE/DVT) 0.45 ug/ml (0-0.50) Glomerular Filtration Rate Calc > 60.0 Calcium Level 9.2 mg/dl (8.4-10.2) Total Bilirubin 0.5 mg/dl (0.2-1.3) Aspartate Amino Transf (AST/SGOT) 22 U/L (0-35) Alanine Aminotransferase (ALT/SGPT) 52 U/L (0-56) Alkaline Phosphatase 78 U/L (0-126) Troponin I < 0.012 ng/ml B-Type Natriuretic Peptide 32 pg/ml (0-100) Total Protein 7.8 gm/dl (6.3-8.2) Albumin 3.9 g/dl (3.5-5.0) Coagulation Test 12/26/17 14:44 D-Dimer Quantitative (PE/DVT) 0.45 ug/ml EKG/Imaging EKG Interpretation Marts 2017 1439 my read: Normal sinus rhythm ventricular rate of 77 normal IN QRS and QTc intervals no ST or T-wave changes to suggest ischemia or infarction. No ectopy. Otherwise normal EKG. ED Course/Re-evaluation ED Course All results were discussed with the patient follow-up medication use at home and reasons to return were discussed. No signs of cardiac etiology. Decision to Disposition Date: Dec 26, 2017 Decision to Disposition Time: 16:58 Depart Departure Latest Vital Signs Vital Signs Date Time Temp Pulse Resp B/P (MAP) Pulse Ox O2 Delivery O2 Flow Rate FiO2 12/26/17 14:25 4.0 12/26/17 14:25 98.9 88 24 125/85 90 Nasal Cannula Impression: Primary Impression: Left shoulder pain Condition: Improved Disposition: HOME OR SELF-CARE Referrals: EYAD GARCIA PA-C (PCP) New Scripts Ibuprofen (IBUPROFEN) 800 Mg Tablet 1 TAB PO Q8H for PAIN for 7 Days, #20 TAB Prov: GEORGE JONES MD 12/26/17 Cyclobenzaprine Hcl (CYCLOBENZAPRINE HCL) 10 Mg Tablet 10 MG PO Q8H Y for MUSCLE SPASMS, #20 TAB 0 Refills Prov: GEORGE JONES MD 12/26/17 Patient Instructions: Shoulder Pain (ED) Problem Qualifiers Primary Impression: Left shoulder pain Chronicity: acute Qualified Codes: M25.512 - Pain in left shoulder GEORGE JONES MD Dec 26, 2017 14:54
[2017-12-26 15:06] LABS: PLATELET COUNT, AUTOMATED 324 K/uL (150-450)
--- NOTE | 2017-12-26 15:07 | RADIOLOGY IMAGING REPORT ---
[facility] PATIENT NAME: Shani Butler : 1960 MR: [id number] V: [id number] EXAM DATE: ORDERING PHYSICIAN: GEORGE JONES TECHNOLOGIST: Location: [facility] Patient: Shani Butler : 1960 Visit/Account:[id number] Date of Sevice: 12/26/2017 CHEST SINGLE AP Indication: Wheezing, dyspnea and edema.. Comparison: 03/25/2017. Findings: Cardiac silhouette remains mildly enlarged. Mixed S1 is within normal limits for the central pulmonar y vessels are mildly prominent. There is mild increased interstitial opacities seen diffusely in both lungs. No focal area of consoli dation. No pneumothorax or pleural effusion. No nodule. Upper abdomen is unremarkable. No acute bony abnormality. IMPRESSION: 1. Stable mildly enlarged heart silhouette. There does appear to be due to mild edema present. No fo candy infiltrate. Report Dictated By: Jorge Alberto Maldonado at 12/26/2017 3:01 PM Report E-Signed By: Jorge Alberto Maldonado at 12/26/2017 3:02 PM WSN:[id number]
[2017-12-26] MEDS ORDERED: MORPHINE 4 MG/ML SDV IVP ONE (16:20)
[2017-12-26] MEDS ORDERED: CYCL10TA29 PO (17:00)
[2017-12-26] MEDS ORDERED: IBUP800T37 PO (17:00)
[2017-12-26] MEDS ORDERED: LORazepam 2 MG/ML VIAL ONE (20:16)
[2017-12-27] MEDS ORDERED: LISI5TAB25 PO (15:13)
== END 2017-12-26 17:05 | disposition home or self-care (01) ==
LOC: ER 14:28
DX: M25.512 Pain in left shoulder (principal); M79.602 Pain in left arm; R07.9 Chest pain, unspecified; Z86.73 Personal history of transient ischemic attack (TIA), and cerebral infarction without residual deficits
CPT/HCPCS: 71045; 83880; 84484; 85025; 85379; 93005; 96374; 96375; 99284; J2060; J2270; 82040; 82247; 82310; 82374; 82435; 82565; 82947; 84075; 84132; 84155; 84295; 84450; 84460; 84520

== ENCOUNTER 2017-12-29 01:24 | Day surgery (SDC) | payer BC ==
[2017-03-26 12:47] VITALS: Ht 172.7 cm; Wt 157.4 kg
--- NOTE | 2017-12-28 14:25 | HISTORY AND PHYSICAL ---
DATE OF ADMISSION: December 29, 2017 PREOPERATIVE DIAGNOSIS Kidney stones. 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 She was also noted to have several smaller stones in the lower pole at that time. She underwent stent placement with appropriate antibiotic treatment, followed by lithotripsy this past summer. In a followup, she was noted to have increasing stone burden on the left side and subsequently returned to the operating room on December 05 where a double-J stent was placed, and she underwent left extracorporeal shock wave lithotripsy. She was returned to the operating room on December 22, at which time she underwent left flexible ureteroscopy with grasping and removal of numerous small calculi of fragments. At the conclusion of the procedure, I felt that it was approximately 90% complete of fragment removal. She has continued to have significant left stent pain and discomfort and was in the Emergency Room this past weekend with increasing left flank pain and shoulder pain. She was evaluated and found to have no cardiac issues or evidence of PE, and her pain appears to be more related to her stent and instrumentation on her left side. She is now being returned to the operating room for planned followup ureteroscopy and stent removal. The current plan is after she becomes stone-free on the left side, we will proceed with treatment on the right which has a significant, but lesser stone burden than on the left. PAST MEDICAL HISTORY 1. Hypercholesterolemia. 2. Obesity. 3. Gastroesophageal reflux disease. 4. Chronic low back pain. 5. Anxiety. 6. Hypertension. 7. Type 2 diabetes. 8. Kidney stones. 9. Anemia. 10. Obstructive sleep apnea. 11. Asthma. 12. Restless leg syndrome. 13. Stable pulmonary nodules. PAST SURGICAL HISTORY 1. Low back surgery. 2. Colonoscopy. 3. Stent placement with extracorporeal shock wave lithotripsy and ureteroscopy as per HPI. CURRENT MEDICATIONS 1. Symbicort. 2. Albuterol. 3. Wellbutrin. 4. Neurontin. 5. Oxygen. 6. Glipizide. 7. Hydrocodone. 8. Acetaminophen. 9. Lorazepam. 10. Metformin. 11. Singulair. 12. Omeprazole. 13. Mirapex. 14. Simvastatin. 15. Trazodone. 16. CPAP. ALLERGIES No known drug allergies. FAMILY HISTORY Noncontributory. REVIEW OF SYSTEMS The patient denies chest pain, productive cough, shortness of breath, nausea, vomiting, fever, chills, gross hematuria, bleeding disorder, or chronic headaches. PHYSICAL EXAMINATION GENERAL: The patient is a well-developed, moderately obese, white female in no acute distress. HEENT: Normocephalic, atraumatic. CHEST: Clear to auscultation bilaterally. CARDIOVASCULAR: Regular rate and rhythm. ABDOMEN: Soft, nontender. No masses are palpated. GENITOURINARY: Deferred to the OR. EXTREMITIES: Without clubbing, cyanosis, or edema. NEUROLOGIC: Nonfocal. IMPRESSION This is a 57-year-old white female with a history of a large stone burden on the left, status post lithotripsy with ureteroscopy with removal of fragments, who has continued to have significant left stent discomfort. She is also noted to have approximately three to four smaller stones on the right side. PLAN We will perform an anesthetic cystoscopy, stent removal with possible ureteroscopy and grasping of remaining fragments. CHE
[~2017-12-29] VITALS: Ht 172.7 cm; Wt 157.4 kg
[~2017-12-29 01:24] MED LIST changes: +CYCL10TA29 PO; +IBUP800T37 PO
[2017-12-29] MEDS ORDERED: NORMOSOL R SOLN(*) 1000 ML BAG 1,000 ML IV PRN (09:30)
[2017-12-29] MEDS ORDERED: MIDAZOLAM 2 MG/2 ML VIAL IVP PRN (09:30)
[2017-12-29] MEDS ORDERED: ceFAZolin(*) 2GM/D5W 50ML 50 ML IVPB ONE (09:30)
[2017-12-29] MEDS ORDERED: LIDOCAINE/SOD BICARB 8.4% SYR ID ONE (09:30)
[2017-12-29] MEDS ORDERED: fentaNYL CITR 100 MCG/2 ML AMP ONE (10:48)
[2017-12-29] MEDS ORDERED: PROPOFOL EMUL(*) 10MG/ML 20 ML 20 ML ONE (10:52)
[2017-12-29] MEDS ORDERED: LIDOCAINE 2% IV 100 MG/5ML SYR ONE (10:53)
[2017-12-29 10:58] VITALS: BP 129/84
[2017-12-29] MEDS ORDERED: WATER STERILE IRRIG(*) 1000ML 1,000 ML ONE (11:35)
[2017-12-29] MEDS ORDERED: IOPAMIDOL-200 50 ML VIAL IS ONE (11:35)
[2017-12-29] MEDS ORDERED: DEXAMETHASONE SOD 4 MG/ML VIAL ONE ×2 (11:47→11:52)
[2017-12-29] MEDS ORDERED: ONDANSETRON 4 MG/2 ML VIAL ONE (11:51)
[2017-12-29] MEDS ORDERED: SUCCINYLCHOL CHL 100MG/5ML SYR IVP ONE (12:00)
--- NOTE | 2017-12-29 12:04 | RADIOLOGY IMAGING REPORT ---
FACILITY: [facility] PATIENT NAME: Shani Butler : 1960 MR: [id number] V: [id number] EXAM DATE: ORDERING PHYSICIAN: PATRICIA GOODWIN [place]CHN[place]: [place] [facility] [place] : 1960 Visit/Account:[id number] Date of Sevice: 12/29/2017 ABDOMEN PELVIS ESWL CYSTO W/O HISTORY: to view stones in kidney TECHNIQUE: Axial images acquired through the abdomen/pelvis. Coronal and sagittal reformatting also performed. No IV contrast administered. Dose Lowering Technique One of the following dose optimization techniques was utilized in the performance of this exam: Autom ated exposure control; adjustment of the mA and/or kV according to the patient's size; or use of an i terative reconstruction technique. Specific details can be referenced in the facility's radiology C T exam operational policy. COMPARISON: December 22, 2017 FINDINGS: Visualized lung bases: There is mild atelectasis in the lung bases Hepatobiliary: There are numerous gallstones although no demonstration of biliary ductal dilatation. Spleen: Negative. Adrenals: there is a punctate calcination occasions left adrenal gland Pancreas: Negative. Kidneys ureters and bladder: There are five calcifications seen in the right renal collecting system measuring up to 8 mm x 3 mm. There is a left ureteral stent in place. There are several small stone s remaining in the lower pole calyces of the left kidney largest measuring approximately 3 mm x 1 mm. There is been a marked decrease in the stone burden in the left collecting system. No definite candy culi are seen along the course of the left ureteral stent. The bladder is decompressed Genitalia: Negative. GI: No evidence of bowel obstruction or bowel wall thickening Vessels/spaces/nodes: 1.4 x 1.4 cm right external iliac lymph node has remained stable. As have the remainder of the bilateral external iliac lymph nodes. Fatty replaced lymph nodes in both inguinal regions also remained stable Bones/soft tissues: Small umbilical hernia containing fat. Postsurgical changes lumbar spine appears some are to the prior study as to the spondylotic changes t hroughout the remainder the lumbar spine Additional findings: None pertinent. IMPRESSION: There are five calcifications in the right renal collecting system measuring up to 8 x 3 mm Left ureteral stent in place with no evidence of hydronephrosis There are several small stones in the lower pole calyces of the left kidney largest measuring 3 x 1 m m. There has been a marked decrease in the stone burden in the left collecting system No definite calculi seen along the course of the left ureteral stent Cholelithiasis although no evidence for ductal dilatation Mild by basilar atelectasis in lower lung bhatti Additional chronic findings as described Report Dictated By: Faye Colvin MD at 12/29/2017 11:36 AM Report E-Signed By: Faye Colvin MD at 12/29/2017 11:59 AM WSN:[id number]
[2017-12-29] MEDS ORDERED: NS 0.9% 3000 ML IRRIGATION BAG IR ONE (12:10)
[2017-12-29] MEDS ORDERED: FUROSEMIDE 40 MG/4 ML VIAL ONE (12:35)
[2017-12-29] MEDS ORDERED: BELLADONNA ALK/OPIUM 60MG SUPP PR ONE (12:38)
[2017-12-29] MEDS ORDERED: KETOROLAC 30 MG/ML VIAL ONE (13:03)
[2017-12-29 14:00] VITALS: BP 141/93
[2017-12-29] MEDS ORDERED: OXYC-865 PO (14:00)
[2017-12-29] MEDS ORDERED: TAMS0.4C25 PO (14:01)
[2017-12-29] MEDS ORDERED: DOCU-416 PO (14:02)
[2017-12-29] MEDS ORDERED: IBUP600T22 PO (14:03)
[2017-12-29 14:15] VITALS: BP 129/80
--- NOTE | 2017-12-29 14:20 | RADIOLOGY IMAGING REPORT ---
[place] [facility] [place] NAME: Shani Butler : 1960 MR: [id number] V: [id number] EXAM DATE: ORDERING PHYSICIAN: PATRICIA ESCALANTE TECHNOLOGIST: Location: [facility] Patient: Shani Butler : 1960 Visit/Account:[id number] Date of Sevice: 12/29/2017 Exam type: C-ARM FLUORO 1 HR History: URETERAL STENT PLACEMENT Comparison: December 22, 2017. Findings: 113 fluoroscopic intraoperative spot views over the abdomen were submitted. The total fluoroscopy ti me was 56 seconds. The total fluoroscopy dose was 100.87 mGray. The images demonstrate removal of the left ureteral stent and contrast was injected into the left jurgen al collecting system. Please see Dr. Escalante's note for complete details IMPRESSION: 1. As above Report Dictated By: Faye oClvin MD at 12/29/2017 2:11 PM Report E-Signed By: Faye Colvin MD at 12/29/2017 2:16 PM JASN:[id number]
[2017-12-29 14:21] VITALS: BP 126/84
--- NOTE | 2017-12-29 20:24 | OPERATIVE REPORT 1 ---
EVENT DATE: December 29, 2017 SURGEON: Dimas Escalante MD ANESTHESIOLOGIST: Pal Whitman MD ANESTHESIA: General anesthetic. PREOPERATIVE DIAGNOSIS Left renal calculi with indwelling ureteral stent. POSTOPERATIVE DIAGNOSIS Left renal calculi with indwelling ureteral stent. PROCEDURES PERFORMED 1. Cystoscopy. 2. Left double-J ureteral stent removal. 3. Left flexible ureteroscopy through access sheath. 4. Left retrograde pyelogram. ESTIMATED BLOOD LOSS Minimal. INTRAVENOUS FLUIDS Crystalloid. DRAINS None. COMPLICATIONS None. CONDITION The patient was taken to the recovery room awake and in stable condition. STATEMENT OF MEDICAL NECESSITY The patient is a 57-year-old white female with a history of bilateral kidney stones who originally presented last spring with emphysematous pyelitis secondary to a 1.2 cm stone on the left side. She subsequently underwent treatment of those stones with lithotripsy. However, when she returned after being lost to followup for several months, she was noted to have increasing stone burden, so she was subsequently taken to the operating room approximately four weeks ago, at which time she underwent stent placement and followup lithotripsy. She was taken to the operating room last week where she underwent ureteroscopy with grasping and removal of numerous of these small fragments and was left with indwelling stents. She has had significant stent discomfort since the stent was originally placed, and she has been to the Emergency Room twice for abdominal, flank, and shoulder pain. A preoperative x-ray today reveals a very few small fragments in the left kidney. The stent is in a good position. The largest fragment is approximately 2 mm in size, numbering four to five. She is now being brought to the operating room for planned stent removal with followup ureteroscopy. DESCRIPTION OF OPERATION PERFORMED The patient was brought to the operating room. After general anesthetic was obtained, she was placed in the dorsal lithotomy position and prepped and draped in usual sterile manner. Anesthetic cystoscopy was performed with a 21- Dutch rigid sheath. The rigid grasping forceps were used to grasp the distal end of the stent which was brought out through the meatus. The lumen of the stent was then cannulated with a 0.035 Sensor wire, which was advanced up to the upper pole calyx. The stent was then removed intact. This wire was used to place an 8/10 dilating system with a second wire alongside the first wire. The 10 sheath was removed. One wire was secured to the drapes, and the second wire was used to place an 11/13 x 36 cm ureteral access sheath. This was done under fluoroscopic imaging, and the access sheath was advanced to approximately the level of the UPJ. The working wire was then removed as well as the obturator of the access sheath. A Cobra double-lumen flexible ureteroscope was introduced through the access sheath, and retrograde renoureteroscopy was performed. She had a significant amount of blood clot throughout the upper, lower, and mid pole calyces with poor visualization. There was no active bleeding noted. Several of these blood clots were grasped with the BioBeats grasping forceps and removed to improve visualization, but after several minutes of inspection, she could not be completely cleared of the small amount of clots, but no stones were visualized in the upper, mid, and lower pole calyceal system. At this point, pull-out ureteroscopy was performed with simultaneous removal of the access sheath. There was no evidence of ureteral injury or any evidence of ureteral calculi along the course of the ureter out to the ureteral orifice. At this point, the scope access sheaths were removed. The safety wire was removed. A retrograde pyelogram was then performed using a 6-Dutch open-ended access catheter, injecting 10 mL of contrast material. No evidence of extravasation of contrast was noted by my intraoperative interpretation. Her calyceal system appeared sharp. She had prompt drainage of the entire ureter. She had a slow, but steady drainage over the course of 10 minutes of her collecting system on the left side in the upper part. The infundibula became less distended over time on the drainage films. Intraoperative interpretation of this was no significant filling defects with no extravasation and moderate drainage of the upper system. Given the fact that she had extreme stent discomfort over the past several weeks, I felt it best to leave her without a stent at this point and follow her symptomatically. She did have some ureteral edema. I will likely treat that conservatively for at least the first 36 hours before considering replacing a stent in this particular patient. Therefore, at this point, she was given a B and O suppository rectally. She was taken down from the dorsal lithotomy position, awakened in the operating room, and taken to the recovery area in stable condition. PLAN The plan is to allow the patient to be discharged home later today if she remains pain-free. We will plan to see her in the office in approximately six to eights weeks with a followup imaging test to ensure resolution of her left- sided stones and no development of hydronephrosis. We will also at that time discuss treatment of her right side. She is being discharged home on Percocet, Colace, Motrin, and Flomax. CHE
== END 2017-12-29 14:00 | disposition home or self-care (01) ==
LOC: OR 01:24
PROVIDERS: ATTEND Urology
DX: N20.0 Calculus of kidney (principal); E11.9 Type 2 diabetes mellitus without complications
CPT/HCPCS: 36416; 52001; 52005; 74176; 76000; 82948; J0330; J1100; J1885; J1940; J2001; J2250; J2405; J2704; J3010; Q9966; C1758; C1769; C1894; J0690

== ENCOUNTER 2017-12-31 14:39 | Inpatient (IN) | payer BC ==
[~2017-12-31] VITALS: Ht 175.3 cm; Wt 154.2 kg
--- NOTE | 2017-12-31 14:41 | ER Report ---
History and Physical Time Seen By MD: 14:41 HPI/ROS CHIEF COMPLAINT: fever HISTORY OF PRESENT ILLNESS: Pt has cysto with left renal indwelling stent removal this past with Dr. Escalante. Pt has had pain since removal of the stent but states that today the flank pain is worse and developed a fever this am.+ nausea. no vomiting. Pt has been urinating REVIEW OF SYSTEMS: Constitutional: + fever, + chills. Eyes: No discharge. ENT: No sore throat. Cardiovascular: No chest pain, no palpitations. Respiratory: No cough, no shortness of breath. Gastrointestinal: No abdominal pain, no vomiting. Genitourinary: + hematuria, +flank pian Musculoskeletal: No back pain. Skin: No rashes. Neurological: No headache. Allergies: Coded Allergies: No Known Drug Allergies (Unverified , 12/31/17) Home Meds Active Scripts Cyclobenzaprine Hcl (CYCLOBENZAPRINE HCL) 10 Mg Tablet, 10 MG PO Q8H Y for MUSCLE SPASMS, #20 TAB 0 Refills Prov:GEORGE JONES MD 12/26/17 Ondansetron Hcl (ZOFRAN) 4 Mg Tablet, 4 MG PO Q6H Y for NAUSEA/VOMITING, #10 Prov:MACK KELLOGG DO 06/12/17 Reported Medications Docusate Sodium (COLACE) 100 Mg Capsule, 100 MG PO BID, #20 CAPSULE 12/29/17 Tamsulosin Hcl (FLOMAX) 0.4 Mg Cap.er.24h, 0.4 MG PO DAILY, #10 CAP 12/29/17 Oxycodone Hcl/Acetaminophen (PERCOCET 5-325 MG TABLET) 1 Each Tablet, 1-2 EA PO Q6H Y for PAIN, #20 TAB 12/29/17 Lisinopril (LISINOPRIL) 5 Mg Tablet, 5 MG PO EVENING, TAB 12/27/17 Ibuprofen (IBUPROFEN) 600 Mg Tablet, 1 TAB PO Q6H Y for PAIN, #20 TAB 12/05/17 Phenazopyridine Hcl (PHENAZOPYRIDINE HCL) 200 Mg Tablet, 200 MG PO TID Y for DISCOMFORT, #30 TAB 12/05/17 Oxybutynin Chloride (OXYBUTYNIN CHLORIDE ER) 15 Mg Tab.er.24, 15 MG PO QDAY Y for DISCOMFORT, TAB.SA 12/05/17 Buspirone Hcl (BUSPIRONE HCL) 5 Mg Tab, 10 MG PO BID, #20 TAB 11/29/17 Gabapentin (GABAPENTIN) 300 Mg Capsule, 300 MG PO EVENINGS, CAPSULE 05/17/17 Simvastatin (SIMVASTATIN) 20 Mg Tablet, 20 MG PO HS, TAB 03/25/17 Dulaglutide (Trulicity) 0.75 Mg/0.5 Ml Pen.injctr, 0.5 ML INJ QWEEK 03/25/17 Bupropion Hcl (WELLBUTRIN XL) 300 Mg Tab.er.24h, 300 MG PO QDAY, TAB 03/25/17 Glipizide (GLIPIZIDE) 10 Mg Tablet, 10 MG PO BID 03/25/17 Lorazepam (LORAZEPAM) 0.5 Mg Tablet, 0.5 MG PO Q4-6H Y for ANXIETY 03/25/17 Trazodone Hcl (TRAZODONE HCL) 150 Mg Tablet, 150 MG PO QHS 03/25/17 Metformin Hcl (METFORMIN HCL) 1,000 Mg Tablet, 1 TAB PO BID, TAB 03/25/17 Pramipexole Di-Hcl (PRAMIPEXOLE DIHYDROCHLORIDE) 0.125 Mg Tablet, 0.125 MG PO TID 03/25/17 Omeprazole (OMEPRAZOLE) 40 Mg Capsule.dr, 40 MG PO QDAY, CAP 03/25/17 Montelukast Sodium (SINGULAIR) 10 Mg Tablet, 1 TAB PO HS, TAB 03/25/17 Albuterol Sulfate 90 Mcg/Act (PROAIR HFA 90 MCG/ACT) 8.5 Gm Hfa.aer.ad, 2 PUFF IH Q4-6H Y for SHORTNESS OF BREATH, INHALER 03/25/17 Budesonide/Formoterol Fumarate (SYMBICORT 160-4.5 MCG INHALER) 10.2 Gm Inh, 10.2 GM INH DAILY, INH 03/25/17 Discontinued Reported Medications Ibuprofen (IBUPROFEN) 600 Mg Tablet, 1 TAB PO Q6H, #20 TAB 12/29/17 Oxycodone/Acetaminophen (OXYCODONE/ACETAMINOPHEN 5MG/325 MG) 5 Mg/325 Mg Tab, 1- 2 TAB PO Q6H Y for PAIN, #40 12/22/17 Tamsulosin Hcl (FLOMAX) 0.4 Mg Cap.er.24h, 0.4 MG PO DAILY, #30 CAP 12/05/17 Docusate Sodium (COLACE) 100 Mg Capsule, 100 MG PO BID, #30 CAPSULE 05/23/17 Discontinued Scripts Ibuprofen (IBUPROFEN) 800 Mg Tablet, 1 TAB PO Q8H for PAIN for 7 Days, #20 TAB Prov:GEORGE JONES MD 12/26/17 Past Medical/Surgical History PAST MEDICAL HISTORY 1. Hypercholesterolemia. 2. Obesity. 3. Gastroesophageal reflux disease. 4. Chronic low back pain. 5. Hypertension. 6. Anxiety. 7. Type 2 diabetes. 8. Kidney stones. 9. Anemia. 10. Obstructive sleep apnea on CPAP. 11. Asthma. 12. Restless leg syndrome. 13. Pulmonary nodules. PAST SURGICAL HISTORY 1. Low back surgery. 2. Colonoscopy. 3. Extracorporeal shock wave lithotripsy with left renal stent placement Reviewed Nurses Notes: Yes Old Medical Records Reviewed: Yes Hx Smoking: Yes (QUIT 1989. UP UNTIL THEN, SMOKED 1-2 PPD X 10 YRS) Smoking Status: Former Smoker Hx Substance Use Disorder: No Hx Alcohol Use: Yes Constitutional Vital Sign - Last 24 Hours 12/31/17 12/31/17 12/31/17 12/31/17 14:46 14:51 15:07 15:09 Temp 103.1 Pulse 117 114 Resp 24 B/P (MAP) 145/79 145/79 (101) 125/71 (89) Pulse Ox 91 91 12/31/17 12/31/17 12/31/17 12/31/17 15:30 15:39 16:00 16:09 Pulse 114 123 B/P (MAP) 133/73 (93) 130/86 (101) Pulse Ox 94 88 Intake and Output 12/31/17 12/31/17 01/01/18 15:00 23:00 07:00 Output Total 15 ml Balance -15 ml Physical Exam General Appearance: The patient is alert, has no immediate need for airway protection and no signs of toxicity. Eyes: Pupils equal and round no pallor or injection, EOMI ENT: no pharyngeal erythema or exudates, Mucous membranes are moist, TM are nl b/l Respiratory: There are no retractions, lungs are clear to auscultation. Cardiovascular: Regular rate and rhythm. pulses are equal and symmetrical Gastrointestinal: Abdomen is soft with Left lower tenderness, no masses, bowel sounds normal, no guarding, no rigidity or rebound Neurological: Cranial nerves II-XII grossly intact, no sensory or motor loss Skin: Warm and dry, no rashes. Musculoskeletal: Neck is supple non tender, no vertebral tenderness Extremities are nontender, non swollen and have full range of motion. DIFFERENTIAL DIAGNOSIS: After history and physical exam differential diagnosis was considered for uti, pyelo, pneumonia, Medical Decision Making Data Points Result Diagram: 12/31/17 1504 12/31/17 1504 Laboratory Hematology Test 12/31/17 15:04 12/31/17 16:11 Red Blood Count 4.90 M/uL (4.17-5.56) Mean Corpuscular Volume 74.5 fL (80.0-96.0) Mean Corpuscular Hemoglobin 23.9 pg (26.0-33.0) Mean Corpuscular Hemoglobin Concent 32.1 g/dL (32.0-36.0) Red Cell Distribution Width 19.0 % (11.5-14.5) Mean Platelet Volume 7.5 fL (7.2-11.1) Neutrophils (%) (Auto) 85.3 % (39.4-72.5) Lymphocytes (%) (Auto) 6.4 % (17.6-49.6) Monocytes (%) (Auto) 7.8 % (4.1-12.4) Eosinophils (%) (Auto) 0.3 % (0.4-6.7) Basophils (%) (Auto) 0.2 % (0.3-1.4) Nucleated RBC Relative Count (auto) 0.0 /100WBC Neutrophils # (Auto) 16.3 K/uL (2.0-7.4) Lymphocytes # (Auto) 1.2 K/uL (1.3-3.6) Monocytes # (Auto) 1.5 K/uL (0.3-1.0) Eosinophils # (Auto) 0.1 K/uL (0.0-0.5) Basophils # (Auto) 0.0 K/uL (0.0-0.1) Nucleated RBC Absolute Count (auto) 0.00 K/uL Sodium Level 133 mmol/L (137-145) Potassium Level 4.4 mmol/L (3.5-5.0) Chloride Level 95 mmol/L (98-107) Carbon Dioxide Level 27 mmol/L (22-31) Blood Urea Nitrogen 15 mg/dl (7-18) Creatinine 0.60 mg/dl (0.52-1.04) Glomerular Filtration Rate Calc > 60.0 Random Glucose 206 mg/dl (75-110) Calcium Level 8.9 mg/dl (8.4-10.2) Total Bilirubin 0.6 mg/dl (0.2-1.3) Aspartate Amino Transf (AST/SGOT) 27 U/L (0-35) Alanine Aminotransferase (ALT/SGPT) 45 U/L (0-56) Alkaline Phosphatase 70 U/L (0-126) Total Protein 7.3 gm/dl (6.3-8.2) Albumin 3.7 g/dl (3.5-5.0) Urine Color Yellow Urine Clarity Clear Urine pH 8.0 pH (4.8-9.5) Urine Specific [place] 1.035 Urine Protein Negative mg/dL (NEGATIVE) Urine Glucose (UA) Negative mg/dL (NEGATIVE) Urine Ketones Negative mg/dL (NEGATIVE) Urine Blood Moderate (NEGATIVE) Urine Nitrite Negative (NEGATIVE) Urine Bilirubin Negative (NEGATIVE) Urine Urobilinogen Negative mg/dL (0.2-1.9) Urine Leukocyte Esterase Negative (NEGATIVE) Urine RBC 55 /HPF (0-2/HPF) Urine WBC 7 /HPF (0-5/HPF) Urine Squamous Epithelial Cells Moderate /LPF (NONE-FEW) Urine Bacteria Negative /HPF (NONE-FEW) Urine Mucus None /HPF (NONE-FEW) Chemistry Test 12/31/17 15:04 12/31/17 16:11 White Blood Count 19.2 k/uL (4.5-11.0) Red Blood Count 4.90 M/uL (4.17-5.56) Hemoglobin 11.7 g/dL (12.0-16.0) Hematocrit 36.5 % (34.0-47.0) Mean Corpuscular Volume 74.5 fL (80.0-96.0) Mean Corpuscular Hemoglobin 23.9 pg (26.0-33.0) Mean Corpuscular Hemoglobin Concent 32.1 g/dL (32.0-36.0) Red Cell Distribution Width 19.0 % (11.5-14.5) Platelet Count 239 K/uL (150-450) Mean Platelet Volume 7.5 fL (7.2-11.1) Neutrophils (%) (Auto) 85.3 % (39.4-72.5) Lymphocytes (%) (Auto) 6.4 % (17.6-49.6) Monocytes (%) (Auto) 7.8 % (4.1-12.4) Eosinophils (%) (Auto) 0.3 % (0.4-6.7) Basophils (%) (Auto) 0.2 % (0.3-1.4) Nucleated RBC Relative Count (auto) 0.0 /100WBC Neutrophils # (Auto) 16.3 K/uL (2.0-7.4) Lymphocytes # (Auto) 1.2 K/uL (1.3-3.6) Monocytes # (Auto) 1.5 K/uL (0.3-1.0) Eosinophils # (Auto) 0.1 K/uL (0.0-0.5) Basophils # (Auto) 0.0 K/uL (0.0-0.1) Nucleated RBC Absolute Count (auto) 0.00 K/uL Glomerular Filtration Rate Calc > 60.0 Calcium Level 8.9 mg/dl (8.4-10.2) Total Bilirubin 0.6 mg/dl (0.2-1.3) Aspartate Amino Transf (AST/SGOT) 27 U/L (0-35) Alanine Aminotransferase (ALT/SGPT) 45 U/L (0-56) Alkaline Phosphatase 70 U/L (0-126) Total Protein 7.3 gm/dl (6.3-8.2) Albumin 3.7 g/dl (3.5-5.0) Urine Color Yellow Urine Clarity Clear Urine pH 8.0 pH (4.8-9.5) Urine Specific [place] 1.035 Urine Protein Negative mg/dL (NEGATIVE) Urine Glucose (UA) Negative mg/dL (NEGATIVE) Urine Ketones Negative mg/dL (NEGATIVE) Urine Blood Moderate (NEGATIVE) Urine Nitrite Negative (NEGATIVE) Urine Bilirubin Negative (NEGATIVE) Urine Urobilinogen Negative mg/dL (0.2-1.9) Urine Leukocyte Esterase Negative (NEGATIVE) Urine RBC 55 /HPF (0-2/HPF) Urine WBC 7 /HPF (0-5/HPF) Urine Squamous Epithelial Cells Moderate /LPF (NONE-FEW) Urine Bacteria Negative /HPF (NONE-FEW) Urine Mucus None /HPF (NONE-FEW) Urinalysis Test 12/31/17 16:11 Urine Color Yellow Urine Clarity Clear Urine pH 8.0 pH (4.8-9.5) Urine Specific [place] 1.035 Urine Protein Negative mg/dL (NEGATIVE) Urine Glucose (UA) Negative mg/dL (NEGATIVE) Urine Ketones Negative mg/dL (NEGATIVE) Urine Blood Moderate (NEGATIVE) Urine Nitrite Negative (NEGATIVE) Urine Bilirubin Negative (NEGATIVE) Urine Urobilinogen Negative mg/dL (0.2-1.9) Urine Leukocyte Esterase Negative (NEGATIVE) Urine RBC 55 /HPF (0-2/HPF) Urine WBC 7 /HPF (0-5/HPF) Urine Squamous Epithelial Cells Moderate /LPF (NONE-FEW) Urine Bacteria Negative /HPF (NONE-FEW) Urine Mucus None /HPF (NONE-FEW) EKG/Imaging Imaging see reports ED Course/Re-evaluation Clinical Indication for ER IV: Hydration, IV Access ED Course Pt urinated on arrival but want to obtain a cath specimen due to fever. Will give fluids prior to obtaining urine. 12/31/2017 4:49:34 pm Attempting to reach Dr. Escalante, urology, however he is not tangible personal property appraiser this weekend. 12/31/2017 5:13:[address] Escalante who would like pt to be admitted for possible pyelo. He is asking for the hospitalist to admit since at this time no procedure is necessary. 12/31/2017 5:16:[address] Payton accepts. Decision to Disposition Date: Dec 31, 2017 Decision to Disposition Time: 17:16 Depart Departure Latest Vital Signs Vital Signs Date Time Temp Pulse Resp B/P (MAP) Pulse Ox O2 Delivery O2 Flow Rate FiO2 12/31/17 16:09 123 88 12/31/17 16:00 130/86 (101) 12/31/17 14:46 103.1 24 Impression: Primary Impression: Pyelonephritis Additional Impression: Fever Condition: Condition Unchanged Disposition: Admitted from ER Referrals: EYAD GARCIA PA-C (PCP) Problem Qualifiers Additional Impression: Fever Fever type: post-procedural Qualified Codes: R50.82 - Postprocedural fever MARQUITA PARDO DO Dec 31, 2017 14:41
[2017-12-31] MEDS ORDERED: HYDROmorphone(ER ONLY) 1 MG/ML IVP ONE (15:00)
[2017-12-31] MEDS ORDERED: NS(*) 0.9% 1000 ML BAG 1,000 ML IV ONE ×2 (15:00→18:50)
[2017-12-31] MEDS ORDERED: ACETAMINOPHEN 325 MG TAB PO ONE (15:05)
[2017-12-31 15:14] LABS: PLATELET COUNT, AUTOMATED 239 K/uL (150-450)
[2017-12-31] MEDS ORDERED: ONDANSETRON 4 MG/2 ML VIAL IVP ONE (15:55)
[2017-12-31] MEDS ORDERED: cefTRIAXone(*) 1 GM VIAL 1 GM in NS(*) 0.9% 100 ML ADDVANT BAG 100 ML IVPB ONE (16:20)
--- NOTE | 2017-12-31 16:33 | RADIOLOGY IMAGING REPORT ---
FACILITY: [facility] PATIENT NAME: Shani Butler : 1960 MR: [id number] V: [id number] EXAM DATE: ORDERING PHYSICIAN: MARQUITA PARDO TECHNOLOGIST: Location: [facility] Patient: Shani Butler : 1960 Visit/Account:[id number] Date of Sevice: 12/31/2017 EXAMINATION: CT abdomen and pelvis with contrast COMPARISON: 12/29/2017 and earlier. HISTORY: recent cystoscopy and L stent removal; pain and fever PROCEDURE: Multiplanar contrast enhanced CT of the abdomen and pelvis with 120 mL intravenous Isovue 370. One of the following dose optimization techniques was utilized in the performance of this exam: Automated exposure control; adjustment of the mA and/or kV according to the patient's size; or use of an iterative reconstruction technique. Specific details can be referenced in the facility's radiol ogy CT exam operational policy. FINDINGS: Visualized thorax: Right middle lobe medial segment 10 mm nodule is unchanged since 03/25/2017. 12 mm n odule in the right lower lobe as ago esophageal recess and a 6 mm nodule in the central right lower l obe are unchanged since at least 06/12/2017. No evidence of acute disease in the visualized lower thor ax. Liver: Negative. Gallbladder and biliary system: Multiple calcified gallstones. No pericholecystic inflammation. No co mmon bile duct dilation. Spleen: Spleen size is normal. Pancreas: Negative. Adrenal glands: Negative. Kidneys and bladder: The left ureteral stent has been removed. Left kidney mild inflammation is minim ally changed. No hydronephrosis. No radiopaque urolithiasis on the left. At least [address] ones in the right kidney measuring up to 6 mm. No right-sided radiopaque ureteral stone or hydronephr osis. Urinary bladder is unremarkable. Vessels: Minimal aortic atherosclerosis. No abdominal aortic aneurysm. Portal venous system and IVC a re unremarkable. Bowel and mesentery: Stomach is within normal limits. No small bowel obstruction. Appendix is unremar kable. Small to moderate amount stool in the colon. A few sigmoid diverticula are present. No bowel o r mesenteric inflammation. Pelvic organs: Negative. Lymph nodes: No adenopathy. Free air/free fluid: None. Abdominal wall and osseous structures: Small fat-containing umbilical hernia. L4-S1 posterior fusion with pedicle screws and paraspinal rods. Moderate degenerative disc disease at L1-L2, L2-L3, L3-L4. N o acute osseous abnormality. IMPRESSION: 1. The left ureteral stent has been removed. No hydronephrosis. 2. Left kidney mild inflammation. This could be related to the recent ureteral stent although correla tion with any evidence of a urinary tract infection/pyelonephritis is recommended. 3. Right kidney nonobstructing nephrolithiasis. 4. Cholelithiasis. 5. Additional nonacute findings as detailed above. Report Dictated By: Sincere Torres MD at 12/31/2017 4:15 PM Report E-Signed By: Sincere Torres MD at 12/31/2017 4:28 PM WSN:[id number]
--- NOTE | 2017-12-31 16:53 | RADIOLOGY IMAGING REPORT ---
FACILITY: [facility] PATIENT NAME: Shani Butler : 1960 MR: [id number] V: [id number] EXAM DATE: ORDERING PHYSICIAN: MARQUITA PARDO TECHNOLOGIST: Location: [facility] [place] Patient: Shani Butler : 1960 Visit/Account:[id number] Date of Sevice: 12/31/2017 EXAMINATION: Chest 2 Views HISTORY: Postop fever. COMPARISON: 12/26/2017. FINDINGS: Stable mild prominence of the interstitial markings bilaterally. No focal consolidation or pleural ef fusion. No pneumothorax. Normal heart size, with stable cardiomediastinal contours. No acute osseous findings in the chest. IMPRESSION: No evidence of acute cardiopulmonary disease. Report Dictated By: Justin Hanks MD at 12/31/2017 4:47 PM Report E-Signed By: Justin Hansk MD at 12/31/2017 4:49 PM WSN:[id number]
[2017-12-31] MEDS ORDERED: IBUPROFEN 600 MG TAB PO ONE ×2 (17:20→22:50)
[2017-12-31 18:22] VITALS: BP 97/49
[2017-12-31 18:31] VITALS: BP 92/58
[2017-12-31] MEDS ORDERED: ALBUTEROL SULFATE 90 MCG/ACT 8.5 GM HNH INH PRN (18:45)
--- NOTE | 2017-12-31 19:00 | History & Physical ---
History of Present Illness Chief Complaint Fever History of Present Illness This patient presented to the emergency room complaining of fever. She underwent ureteral stent removal last week with Dr. Escalante. Today she developed a fever to 103. She complains of some nauseas, but otherwise is not having any symptoms. History Problems: (1) Depression (2) DM2 (diabetes mellitus, type 2) Status: Chronic (3) Benign hypertension Status: Chronic (4) Asthma Status: Chronic (5) Morbid obesity with BMI of 50.0-59.9, adult Status: Chronic Home Meds Active Scripts Cyclobenzaprine Hcl (CYCLOBENZAPRINE HCL) 10 Mg Tablet, 10 MG PO Q8H Y for MUSCLE SPASMS, #20 TAB 0 Refills Prov:GEORGE JONES MD 12/26/17 Ondansetron Hcl (ZOFRAN) 4 Mg Tablet, 4 MG PO Q6H Y for NAUSEA/VOMITING, #10 Prov:MACK KELLOGG DO 06/12/17 Reported Medications Docusate Sodium (COLACE) 100 Mg Capsule, 100 MG PO BID, #20 CAPSULE 12/29/17 Tamsulosin Hcl (FLOMAX) 0.4 Mg Cap.er.24h, 0.4 MG PO DAILY, #10 CAP 12/29/17 Oxycodone Hcl/Acetaminophen (PERCOCET 5-325 MG TABLET) 1 Each Tablet, 1-2 EA PO Q6H Y for PAIN, #20 TAB 12/29/17 Lisinopril (LISINOPRIL) 5 Mg Tablet, 5 MG PO EVENING, TAB 12/27/17 Ibuprofen (IBUPROFEN) 600 Mg Tablet, 1 TAB PO Q6H Y for PAIN, #20 TAB 12/05/17 Phenazopyridine Hcl (PHENAZOPYRIDINE HCL) 200 Mg Tablet, 200 MG PO TID Y for DISCOMFORT, #30 TAB 12/05/17 Oxybutynin Chloride (OXYBUTYNIN CHLORIDE ER) 15 Mg Tab.er.24, 15 MG PO QDAY Y for DISCOMFORT, TAB.SA 12/05/17 Buspirone Hcl (BUSPIRONE HCL) 5 Mg Tab, 10 MG PO BID, #20 TAB 11/29/17 Gabapentin (GABAPENTIN) 300 Mg Capsule, 300 MG PO EVENINGS, CAPSULE 05/17/17 Simvastatin (SIMVASTATIN) 20 Mg Tablet, 20 MG PO HS, TAB 03/25/17 Dulaglutide (Trulicity) 0.75 Mg/0.5 Ml Pen.injctr, 0.5 ML INJ QWEEK 03/25/17 Bupropion Hcl (WELLBUTRIN XL) 300 Mg Tab.er.24h, 300 MG PO QDAY, TAB 03/25/17 Glipizide (GLIPIZIDE) 10 Mg Tablet, 10 MG PO BID 03/25/17 Lorazepam (LORAZEPAM) 0.5 Mg Tablet, 0.5 MG PO Q4-6H Y for ANXIETY 03/25/17 Trazodone Hcl (TRAZODONE HCL) 150 Mg Tablet, 150 MG PO QHS 03/25/17 Metformin Hcl (METFORMIN HCL) 1,000 Mg Tablet, 1 TAB PO BID, TAB 03/25/17 Pramipexole Di-Hcl (PRAMIPEXOLE DIHYDROCHLORIDE) 0.125 Mg Tablet, 0.125 MG PO TID 03/25/17 Omeprazole (OMEPRAZOLE) 40 Mg Capsule.dr, 40 MG PO QDAY, CAP 03/25/17 Montelukast Sodium (SINGULAIR) 10 Mg Tablet, 1 TAB PO HS, TAB 03/25/17 Albuterol Sulfate 90 Mcg/Act (PROAIR HFA 90 MCG/ACT) 8.5 Gm Hfa.aer.ad, 2 PUFF IH Q4-6H Y for SHORTNESS OF BREATH, INHALER 03/25/17 Budesonide/Formoterol Fumarate (SYMBICORT 160-4.5 MCG INHALER) 10.2 Gm Inh, 10.2 GM INH DAILY, INH 03/25/17 Discontinued Reported Medications Ibuprofen (IBUPROFEN) 600 Mg Tablet, 1 TAB PO Q6H, #20 TAB 12/29/17 Oxycodone/Acetaminophen (OXYCODONE/ACETAMINOPHEN 5MG/325 MG) 5 Mg/325 Mg Tab, 1- 2 TAB PO Q6H Y for PAIN, #40 12/22/17 Tamsulosin Hcl (FLOMAX) 0.4 Mg Cap.er.24h, 0.4 MG PO DAILY, #30 CAP 12/05/17 Docusate Sodium (COLACE) 100 Mg Capsule, 100 MG PO BID, #30 CAPSULE 05/23/17 Discontinued Scripts Ibuprofen (IBUPROFEN) 800 Mg Tablet, 1 TAB PO Q8H for PAIN for 7 Days, #20 TAB Prov:GEORGE JONES MD 12/26/17 Allergies: Coded Allergies: No Known Drug Allergies (Unverified , 12/31/17) Patient History: FH: pancreatic cancer FATHER, , Age:84 Normal MOTHER BROTHER OR SISTER BROTHER OR SISTER CHILD CHILD CHILD Hx Smoking: Yes (QUIT 1989. UP UNTIL THEN, SMOKED 1-2 PPD X 10 YRS) Smoking Status: Former Smoker When Quit Tobacco?: 27 years ago Caffeine/Cups Per Day: RARE Hx Alcohol Use: Yes Hx Substance Use Disorder: No Social Drug Use: Never Review of Systems All Systems Reviewed/Normal: Yes, Except as Noted Constitutional: Fever Gastrointestinal: Nausea Exam Vital Signs Vital Signs Date Time Temp Pulse Resp B/P (MAP) Pulse Ox O2 Delivery O2 Flow Rate FiO2 12/31/17 18:31 92/58 (69) 12/31/17 18:22 101.5 108 24 90 Nasal Cannula 4.0 Neuro: No Gross deficits Eyes: PERRLA Cardiovascular: Regular Rate and Rhythm Respiratory: Clear to Auscultation GI: Abd Soft and Non-Tender : No CVA Tenderness Extremities: No Edema Integumentary: No Cyanosis Medical Decision Making Data Points Result Diagram: 12/31/17 1504 12/31/17 1504 EKG / Imaging Imaging Chest x-ray and CT chest and abdomen reviewed. Assessment and Plan Problems: (1) Pyelonephritis Status: Acute Assessment & Plan: She did present with fever and her CT scan showed findings consistent with pyelonephritis. She did undergo stent removal two days ago. Her urinalysis does not contain leukocytes, but she does have an elevated WBC. A lactate is pending. She has been started on empiric treatment with ceftriaxone. A urine culture is pending. Dr. Escalante will be evaluating her in the morning and requested that she be NPO in case a procedure is required. (2) Benign hypertension Status: Chronic Assessment & Plan: She is on chronic treatment with lisinopril, which has been held secondary to low blood pressure. (3) DM2 (diabetes mellitus, type 2) Status: Chronic Assessment & Plan: She is on chronic treatment with metformin, glipizide, and Trulicity. All of these are currently on hold and she has been placed on sliding scale level #2. The metformin will need to remain on hold for 48hrs since she received contrast with her CT scan. (4) Asthma Status: Chronic Assessment & Plan: She is on chronic treatment with Symbicort. (5) Depression Assessment & Plan: She is on chronic treatment with bupropion, buspirone, and Trazodone. (6) Morbid obesity with BMI of 50.0-59.9, adult Status: Chronic Copies to: PATRICIA ESCALANTE MD Venous Thromboembolism Antithrombotics Is Pt On Any Antithrombotics?: No Exam Sepsis Risk: Possible Sepsis Risk KATIE BLANTON DO Dec 31, 2017 19:00
[2017-12-31 19:47] VITALS: BP 92/52
[2017-12-31] MEDS: PRAMIPEXOLE DIHYDROCHL 0.25 MG PO SCH (21:29)
[2017-12-31] MEDS: MONTELUKAST SODIUM 10 MG TAB PO SCH (21:30)
[2017-12-31] MEDS: traZODone HCL 50 MG TAB PO SCH (21:30)
[2017-12-31] MEDS: NYSTATIN 100,000 U/GM PWD 15GM TP SCH (21:30)
[2017-12-31] MEDS: DOCUSATE SODIUM 100 MG CAP PO SCH (21:30)
[2017-12-31] MEDS: busPIRone HCL 5 MG TAB PO SCH (21:34)
[2017-12-31] MEDS: ACETAMINOPHEN 500 MG TAB PO PRN (22:00)
[2017-12-31 22:44] VITALS: BP 110/66
[2017-12-31] MEDS: NS(*) 0.9% 1000 ML BAG 1,000 ML IV PRN (22:54)
[2018-01-01] VITALS (7 sets, daily range): BP systolic 97–132; BP diastolic 49–76; Ht 175.3 cm; Wt 154.2 kg
[2018-01-01] MEDS: MORPHINE 2 MG/ML SYR IVP PRN ×9 (00:05→23:12)
[2018-01-01] MEDS: BUDESO/FORMOT 160/4.5 MCG 6 GM INH SCH (05:56)
[2018-01-01 06:08] LABS: PLATELET COUNT, AUTOMATED 193 K/uL (150-450)
[2018-01-01] MEDS: NS(*) 0.9% 1000 ML BAG 1,000 ML IV PRN ×3 (06:43→23:12)
[2018-01-01] MEDS: INSULIN HUM LISPRO 100 UN/ML 3 ML VIAL SUBQ PRN ×4 (08:35→20:47)
[2018-01-01] MEDS: NYSTATIN 100,000 U/GM PWD 15GM TP SCH ×2 (09:00→20:48)
[2018-01-01] MEDS: buPROPion XL 150 MG TABCR PO SCH ×2 (09:00→11:38)
[2018-01-01] MEDS: TAMSULOSIN HCL 0.4 MG CAP PO SCH ×2 (09:00→11:37)
[2018-01-01] MEDS: busPIRone HCL 5 MG TAB PO SCH ×3 (09:00→20:48)
[2018-01-01] MEDS: DOCUSATE SODIUM 100 MG CAP PO SCH ×3 (09:00→20:47)
[2018-01-01] MEDS: PRAMIPEXOLE DIHYDROCHL 0.25 MG PO SCH ×4 (09:00→20:47)
[2018-01-01] MEDS: PROMETHAZINE 25 MG/ML 1 ML AMP IVP PRN ×2 (12:09→16:58)
[2018-01-01] MEDS: ACETAMINOPHEN(*)1000 MG/100 ML 100 ML IVPB PRN ×2 (14:28→21:10)
[2018-01-01] MEDS: ENOXAPARIN 40 MG/0.4ML SYR SC SCH (14:28)
[2018-01-01] MEDS ORDERED: cefTRIAXone 2 GM VIAL IVP SCH (16:00)
--- NOTE | 2018-01-01 16:03 | Hospitalist Progress Note ---
Subjective Progress Notes Subjective The patient continues to have some nausea, vomiting and back pain. Physical Exam Vital Signs Date Time Temp Pulse Resp B/P (MAP) Pulse Ox O2 Delivery O2 Flow Rate FiO2 01/01/18 15:20 100.7 01/01/18 15:09 98 20 118/68 (85) 90 Nasal Cannula 4.0 Intake and Output 01/02/18 07:00 # Voids 2 General Appearance: Alert, Awake, Other (Appears ill.) Neuro: No Gross deficits Cardiovascular: Regular Rate and Rhythm (With loud systolic murmur. No thrill.) Respiratory: Clear to Auscultation (Anteriorly.) GI: Other (Obese, distended. Nontender.) Extremities: Warm, Perfused Psych: Appropriate Mood & Affect Result Diagram: 01/01/1853501/01/18535 Assessment and Plan Problems: (1) Pyelonephritis Status: Acute Assessment & Plan: She did present with fever and her CT scan showed findings consistent with pyelonephritis. One of two blood cultures are growing a gram negative elaine. She did undergo stent removal two days ago. Her urinalysis contains only 7 leukocytes, but she did have an elevated WBC. Her WBC did improve today. A lactate was negative on admission. She was started on empiric treatment with ceftriaxone. A urine culture is also growing a gram negative elaine. Dr. Escalante is following. She continues to have nausea and vomiting. Antiemetics ordered. (2) Benign hypertension Status: Chronic Assessment & Plan: She is on chronic treatment with lisinopril, which has been held secondary to low blood pressure. (3) DM2 (diabetes mellitus, type 2) Status: Chronic Assessment & Plan: She is on chronic treatment with metformin, glipizide, and Trulicity. All of these are currently on hold and she has been placed on sliding scale level #2. The metformin will need to remain on hold for 48hrs since she received contrast with her CT scan. (4) Asthma Status: Chronic Assessment & Plan: She is on chronic treatment with Symbicort. (5) Depression Assessment & Plan: She is on chronic treatment with bupropion, buspirone, and Trazodone. (6) Morbid obesity with BMI of 50.0-59.9, adult Status: Chronic Time Spent on Plan of Care: < 30 min Exam Sepsis Risk: Sepsis Risk ELAINE WHITE MD Jan 01, 2018 16:03
[2018-01-01] MEDS ORDERED: PROMETHAZINE 25 MG/ML 1 ML AMP IVP PRN (19:50)
[2018-01-01] MEDS: traZODone HCL 50 MG TAB PO SCH (20:47)
[2018-01-01] MEDS: MONTELUKAST SODIUM 10 MG TAB PO SCH (20:47)
[2018-01-02] MEDS: MORPHINE 2 MG/ML SYR IVP PRN ×6 (02:15→21:54)
[2018-01-02 04:19] VITALS: BP 122/74
[2018-01-02] MEDS: ACETAMINOPHEN(*)1000 MG/100 ML 100 ML IVPB PRN (04:29)
[2018-01-02] MEDS: NS(*) 0.9% 1000 ML BAG 1,000 ML IV PRN ×2 (05:40→21:54)
[2018-01-02] MEDS: BUDESO/FORMOT 160/4.5 MCG 6 GM INH SCH (05:41)
[2018-01-02] MEDS ORDERED: ONDANSETRON 4 MG/2 ML VIAL IVP ONE (06:00)
[2018-01-02 06:27] LABS: PLATELET COUNT, AUTOMATED 177 K/uL (150-450)
[2018-01-02 07:19] VITALS: BP 125/78
[2018-01-02] MEDS: buPROPion XL 150 MG TABCR PO SCH (08:40)
[2018-01-02] MEDS: DOCUSATE SODIUM 100 MG CAP PO SCH ×2 (08:41→20:42)
[2018-01-02] MEDS: PRAMIPEXOLE DIHYDROCHL 0.25 MG PO SCH ×3 (08:41→20:43)
[2018-01-02] MEDS: NYSTATIN 100,000 U/GM PWD 15GM TP SCH ×2 (08:41→20:44)
[2018-01-02] MEDS: busPIRone HCL 5 MG TAB PO SCH ×2 (08:41→20:42)
[2018-01-02] MEDS: TAMSULOSIN HCL 0.4 MG CAP PO SCH (08:42)
[2018-01-02] MEDS: INSULIN HUM LISPRO 100 UN/ML 3 ML VIAL SUBQ PRN ×3 (08:42→20:45)
[2018-01-02] MEDS: ENOXAPARIN 40 MG/0.4ML SYR SC SCH (08:43)
[2018-01-02] MEDS ORDERED: INFLUENZA VIRUS VAC 0.5 ML SYR IM ONLY ONE (09:00)
[2018-01-02] MEDS: cefTAZidime 1 GM VIAL IVP SCH ×2 (10:14→16:40)
[2018-01-02] MEDS: PIPERACILLIN/TAZO*3.375GM VIAL 3.375 GM in NS(*) 0.9% 100 ML ADDVANT BAG 100 ML IVPB SCH ×3 (10:33→21:54)
[2018-01-02 11:00] VITALS: BP 122/77
--- NOTE | 2018-01-02 12:55 | Hospitalist Progress Note ---
Subjective Progress Notes Subjective She reports only minimal improvements. Not much appetite. Physical Exam Vital Signs Date Time Temp Pulse Resp B/P (MAP) Pulse Ox O2 Delivery O2 Flow Rate FiO2 01/02/18 11:00 98.5 101 20 122/77 (92) 95 High-Flow Nasal Cannula 6.0 Intake and Output 01/03/18 07:00 Intake Total 830 ml Balance 830 ml Intake Oral 620 ml IV Total 210 ml # Voids 3 General Appearance: Alert, Awake Cardiovascular: Regular Rate and Rhythm (with systolic murmur) Respiratory: Clear to Auscultation GI: Other (obese/soft/BS present) Psych: Alert & Oriented X3 Result Diagram: 01/02/1855101/02/18551 Assessment and Plan Problems: (1) Pyelonephritis Status: Acute Assessment & Plan: She presented with fever and her CT scan showed findings consistent with pyelonephritis. Her urine culture is growing Pseudomonas aeruginosa and one of two blood cultures are growing a gram negative elaine. She did undergo stent removal two days ago. Her urinalysis contains only 7 leukocytes, but she did have an elevated WBC. Her WBC did improve slightly today. She was started on empiric treatment with ceftriaxone, but will need to change to Fortaz and Zosyn for "double coverage" of the Pseudomonas. Dr. Escalante is following. (2) Benign hypertension Status: Chronic Assessment & Plan: She is on chronic treatment with lisinopril, which has been held secondary to low/normal blood pressure. (3) DM2 (diabetes mellitus, type 2) Status: Chronic Assessment & Plan: She is on chronic treatment with metformin, glipizide, and Trulicity. All of these are currently on hold and she has been placed on sliding scale level #2. The metformin will need to remain on hold for another 24hrs since she received contrast with her CT scan. (4) Asthma Status: Chronic Assessment & Plan: She is on chronic treatment with Symbicort. (5) Depression Assessment & Plan: She is on chronic treatment with bupropion, buspirone, and Trazodone. (6) Morbid obesity with BMI of 50.0-59.9, adult Status: Chronic Exam Sepsis Risk: No Definite Risk GENARO WHITE MD Jan 02, 2018 12:55
[2018-01-02 15:01] VITALS: BP 122/87
--- NOTE | 2018-01-02 17:20 | CONSULTATION ---
EVENT DATE: January 02, 2018 REASON FOR CONSULTATION Pyelonephritis. 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 She was also noted to have several small stones. She subsequently underwent stent placement and treatment of these kidney stones. However, in followup she was noted to have increasing stone burden fragment. Therefore she was brought to the operating room on December 05, where she underwent left extracorporeal shock wave lithotripsy and placement of a double-J stent. She was returned to the operating room on December 22, at which time she underwent left ureteroscopy with grasping and removal of numerous stone fragments and replacement of her stent. She was last taken to the operating room on December 29. At that time she underwent ureteroscopy. There was no remaining stones encountered and her stent was removed. She presented to the emergency room on December 31 complaining of increasing left flank pain with fever and nausea. On evaluation she had a temp of 103.1 and an elevated white count at 19 with 85% neutrophils. Blood and urine cultures were obtained and she was admitted to the hospital with a diagnosis of pyelonephritis. A chest x-ray was performed which was normal and an abdominal pelvis CT scan was performed with contrast. She was noted to have no hydronephrosis or kidney stones on the left. She had some mild inflammatory changes surrounding the right kidney. Her right stones were stable. There were no other acute findings. The patient was started on IV Rocephin and intravenous hydration. Since that time she has moderately improved. She last had a fever of 103 yesterday a.m. This morning her fever was 102.0. Her white count has decreased to 16.7, her her urine culture has returned pseudomonas, and one of the blood cultures is growing out a gram-negative elaine. Yris is still complaining of nausea, but the left flank pain has somewhat improved. She denies shortness of breath, productive cough or chest pains. PAST MEDICAL HISTORY 1. Hypercholesterolemia. 2. Gastroesophageal reflux disease. 3. Obesity. 4. Low back pain. 5. Hypertension. 6. Anxiety. 7. Type 2 diabetes. 8. Kidney stones. 9. Anemia. 10. Obstructive sleep apnea on CPAP. 11. Restless leg syndrome. 12. Asthma. 13. Stable pulmonary nodules. PAST SURGICAL HISTORY 1. Low back surgery. 2. Colonoscopy. 3. As per HPI. CURRENT MEDICATIONS 1. Symbicort. 2. Albuterol. 3. Wellbutrin. 4. Neurontin. 5. Oxygen. 6. Glipizide. 7. Hydrocortisone. 8. Acetaminophen. 9. Lorazepam. 10. Metformin. 11. Singulair. 12. Omeprazole. 13. Mirapex. 14. Simvastatin. 15. Trazodone. 16. CPAP. ALLERGIES Patient denies drug allergies. FAMILY HISTORY Noncontributory. REVIEW OF SYSTEMS Patient denies bleeding disorder, productive cough, headache, change in vision, numbness, weakness, dyspnea on exertion, or liver disease. PHYSICAL EXAMINATION GENERAL: Patient is an obese white female in no acute distress. HEENT: Normocephalic, atraumatic. CHEST: Clear to auscultation bilaterally. CARDIOVASCULAR: Regular rate and rhythm. ABDOMEN: Soft, obese, nontender. EXTREMITIES: Exam without clubbing, cyanosis or edema. NEUROLOGIC: Exam is nonfocal. IMPRESSION A 57-year-old white female with a history of kidney stones, recently status post left ureteroscopy, now with pseudomonas pyelonephritis. RECOMMENDATIONS Would continue with aggressive IV fluid hydration and tailor specific antibiotics to her pseudomonas for at least two weeks IV. Continue monitoring her white count and vital signs. If she does not have expected improvement would consider re-imaging of her abdomen. CHE
[2018-01-02 19:18] VITALS: BP 143/90
[2018-01-02] MEDS: BISACODYL 10 MG SUPP PR PRN ×2 (19:44→19:54)
[2018-01-02] MEDS: traZODone HCL 50 MG TAB PO SCH (20:43)
[2018-01-02] MEDS: MONTELUKAST SODIUM 10 MG TAB PO SCH (20:43)
[2018-01-02 23:13] VITALS: BP 135/71
[2018-01-03] MEDS: MORPHINE 2 MG/ML SYR IVP PRN ×5 (00:21→20:56)
[2018-01-03] MEDS: cefTAZidime 1 GM VIAL IVP SCH ×3 (00:21→17:40)
[2018-01-03] MEDS: PIPERACILLIN/TAZO*3.375GM VIAL 3.375 GM in NS(*) 0.9% 100 ML ADDVANT BAG 100 ML IVPB SCH ×4 (03:54→23:17)
[2018-01-03 03:59] VITALS: BP 127/85
[2018-01-03] MEDS: BUDESO/FORMOT 160/4.5 MCG 6 GM INH SCH (05:24)
[2018-01-03 07:02] LABS: PLATELET COUNT, AUTOMATED 173 K/uL (150-450)
[2018-01-03 07:48] VITALS: BP 120/75
[2018-01-03] MEDS: DOCUSATE SODIUM 100 MG CAP PO SCH ×2 (09:39→20:56)
[2018-01-03] MEDS: PRAMIPEXOLE DIHYDROCHL 0.25 MG PO SCH ×3 (09:39→20:55)
[2018-01-03] MEDS: ENOXAPARIN 40 MG/0.4ML SYR SC SCH (09:39)
[2018-01-03] MEDS: TAMSULOSIN HCL 0.4 MG CAP PO SCH (09:39)
[2018-01-03] MEDS: busPIRone HCL 5 MG TAB PO SCH ×2 (09:39→20:57)
[2018-01-03] MEDS: buPROPion XL 150 MG TABCR PO SCH (09:39)
[2018-01-03] MEDS: NYSTATIN 100,000 U/GM PWD 15GM TP SCH ×2 (09:40→20:54)
--- NOTE | 2018-01-03 10:02 | Hospitalist Progress Note ---
Subjective Progress Notes Subjective She reports feeling improved. Tmax is lower. Appetite is better. Physical Exam Vital Signs Date Time Temp Pulse Resp B/P (MAP) Pulse Ox O2 Delivery O2 Flow Rate FiO2 01/03/18 07:48 99.3 89 16 120/75 (90) 92 High-Flow Nasal Cannula 4.5 Intake and Output 01/04/18 07:00 # Voids 1 General Appearance: Alert, Awake Result Diagram: 01/03/18 0651 01/03/18 0651 Assessment and Plan Problems: (1) Pyelonephritis Status: Acute Assessment & Plan: She presented with fever and her CT scan showed findings consistent with pyelonephritis. Her urine culture is growing Pseudomonas aeruginosa as are two blood cultures. She did undergo stent removal three days ago. Her urinalysis contained only 7 leukocytes, but she did have an elevated WBC. Her WBC did improve today. She was started on empiric treatment with ceftriaxone, but changed to Fortaz and Zosyn for "double coverage" of the Pseudomonas. Will plan on continuing same regimen until she is afebrile and has a normal WBC count for 48-72 hours. At that time would consider transition to oral antibiotics (Levaquin) to complete 14 days of therapy. (2) Benign hypertension Status: Chronic Assessment & Plan: She is on chronic treatment with lisinopril, which has been held secondary to low/normal blood pressure. (3) DM2 (diabetes mellitus, type 2) Status: Chronic Assessment & Plan: She is on chronic treatment with metformin, glipizide, and Trulicity. All of these are currently on hold and she has been placed on sliding scale level #2. Glucoses 140-160. Continue to watch closely. (4) Asthma Status: Chronic Assessment & Plan: She is on chronic treatment with Symbicort. (5) Depression Assessment & Plan: She is on chronic treatment with bupropion, buspirone, and Trazodone. (6) Morbid obesity with BMI of 50.0-59.9, adult Status: Chronic Exam Sepsis Risk: No Definite Risk GENARO WHITE MD Jan 03, 2018 10:02
[2018-01-03 11:33] VITALS: BP 126/77
[2018-01-03 15:20] VITALS: BP 120/80
[2018-01-03] MEDS: NS(*) 0.9% 1000 ML BAG 1,000 ML IV PRN (15:25)
[2018-01-03] MEDS: INSULIN HUM LISPRO 100 UN/ML 3 ML VIAL SUBQ PRN (17:40)
[2018-01-03] MEDS: MONTELUKAST SODIUM 10 MG TAB PO SCH (20:55)
[2018-01-03] MEDS: traZODone HCL 50 MG TAB PO SCH (20:55)
[2018-01-03] MEDS: ACETAMINOPHEN 500 MG TAB PO PRN (20:56)
[2018-01-03 23:18] VITALS: BP 122/77
[2018-01-04] MEDS: cefTAZidime 1 GM VIAL IVP SCH ×2 (01:28→09:23)
[2018-01-04] MEDS: PIPERACILLIN/TAZO*3.375GM VIAL 3.375 GM in NS(*) 0.9% 100 ML ADDVANT BAG 100 ML IVPB SCH (03:30)
[2018-01-04] MEDS: MORPHINE 2 MG/ML SYR IVP PRN ×2 (03:31→05:45)
[2018-01-04 05:12] VITALS: BP 108/69
[2018-01-04] MEDS: BUDESO/FORMOT 160/4.5 MCG 6 GM INH SCH (05:35)
[2018-01-04 06:38] LABS: PLATELET COUNT, AUTOMATED 221 K/uL (150-450)
[2018-01-04 07:52] VITALS: BP 123/91
[2018-01-04] MEDS: PRAMIPEXOLE DIHYDROCHL 0.25 MG PO SCH ×2 (09:19→14:26)
[2018-01-04] MEDS: ENOXAPARIN 40 MG/0.4ML SYR SC SCH (09:19)
[2018-01-04] MEDS: buPROPion XL 150 MG TABCR PO SCH (09:19)
[2018-01-04] MEDS: busPIRone HCL 5 MG TAB PO SCH (09:20)
[2018-01-04] MEDS: NYSTATIN 100,000 U/GM PWD 15GM TP SCH (09:20)
[2018-01-04] MEDS: TAMSULOSIN HCL 0.4 MG CAP PO SCH (09:20)
[2018-01-04] MEDS: DOCUSATE SODIUM 100 MG CAP PO SCH (09:20)
[2018-01-04] MEDS ORDERED: LEVOFLOXACIN 500 MG TAB PO SCH (10:00)
[2018-01-04] MEDS ORDERED: LEVO-85 PO (10:36)
--- NOTE | 2018-01-04 10:41 | Hospitalist Depart ---
Discharge Summary Reason for Hosp/Final Diag: (1) Pyelonephritis Status: Acute Hospital Course & Plan: She presented with fever and her CT scan showed findings consistent with pyelonephritis. Her urine and blood cultures have grown Pseudomonas. She did undergo stent removal three days prior to admission. She was started on empiric treatment with ceftriaxone, but was changed to Fortaz and Zosyn. She has now been afebrile for 48hrs. We have converted her to oral levofloxacin. She will complete a 14 day course of antibiotics. (2) Sepsis Hospital Course & Plan: She did present with fever and an elevated WBC. She has improved with fluids and antibiotics. (3) Benign hypertension Status: Chronic Hospital Course & Plan: She is on chronic treatment with lisinopril, which has been held secondary to low/normal blood pressure. (4) DM2 (diabetes mellitus, type 2) Status: Chronic Hospital Course & Plan: She is on chronic treatment with metformin, glipizide, and Trulicity. (5) Asthma Status: Chronic Hospital Course & Plan: She is on chronic treatment with Symbicort. (6) Depression Hospital Course & Plan: She is on chronic treatment with bupropion, buspirone, and Trazodone. (7) Morbid obesity with BMI of 50.0-59.9, adult Status: Chronic Departure Latest Vital Signs Vital Signs 01/04/18 07:52 Temp 99.1 Pulse 91 Resp 18 B/P (MAP) 123/91 (102) Pulse Ox 89 O2 Delivery High-Flow Nasal Cannula O2 Flow Rate 3.5 Weight (Pounds): 340 Result Diagram: 01/04/1808 01/04/18607 Condition: Improved Discharge: Home, Self Care Discharge Instructions Home Meds Active Scripts Levofloxacin 500 Mg Tab (LEVAQUIN 500 MG TAB) 500 Mg Tablet, 500 MG PO QDAY@10, #14 TAB Prov:KATIE BLANTON DO 01/04/18 Cyclobenzaprine Hcl (CYCLOBENZAPRINE HCL) 10 Mg Tablet, 10 MG PO Q8H Y for MUSCLE SPASMS, #20 TAB 0 Refills Prov:GEORGE JONES MD 12/26/17 Reported Medications Docusate Sodium (COLACE) 100 Mg Capsule, 100 MG PO BID, #20 CAPSULE 12/29/17 Tamsulosin Hcl (FLOMAX) 0.4 Mg Cap.er.24h, 0.4 MG PO DAILY, #10 CAP 12/29/17 Oxycodone Hcl/Acetaminophen (PERCOCET 5-325 MG TABLET) 1 Each Tablet, 1-2 EA PO Q6H Y for PAIN, #20 TAB 12/29/17 Phenazopyridine Hcl (PHENAZOPYRIDINE HCL) 200 Mg Tablet, 200 MG PO TID Y for DISCOMFORT, #30 TAB 12/05/17 Oxybutynin Chloride (OXYBUTYNIN CHLORIDE ER) 15 Mg Tab.er.24, 15 MG PO QDAY Y for DISCOMFORT, TAB.SA 12/05/17 Buspirone Hcl (BUSPIRONE HCL) 5 Mg Tab, 10 MG PO BID, #20 TAB 11/29/17 Gabapentin (GABAPENTIN) 300 Mg Capsule, 300 MG PO EVENINGS, CAPSULE 05/17/17 Simvastatin (SIMVASTATIN) 20 Mg Tablet, 20 MG PO HS, TAB 03/25/17 Dulaglutide (Trulicity) 0.75 Mg/0.5 Ml Pen.injctr, 0.5 ML INJ QWEEK 03/25/17 Bupropion Hcl (WELLBUTRIN XL) 300 Mg Tab.er.24h, 300 MG PO QDAY, TAB 03/25/17 Glipizide (GLIPIZIDE) 10 Mg Tablet, 10 MG PO BID 03/25/17 Lorazepam (LORAZEPAM) 0.5 Mg Tablet, 0.5 MG PO Q4-6H Y for ANXIETY 03/25/17 Trazodone Hcl (TRAZODONE HCL) 150 Mg Tablet, 150 MG PO QHS 03/25/17 Metformin Hcl (METFORMIN HCL) 1,000 Mg Tablet, 1 TAB PO BID, TAB 03/25/17 Pramipexole Di-Hcl (PRAMIPEXOLE DIHYDROCHLORIDE) 0.125 Mg Tablet, 0.125 MG PO TID 03/25/17 Omeprazole (OMEPRAZOLE) 40 Mg Capsule.dr, 40 MG PO QDAY, CAP 03/25/17 Montelukast Sodium (SINGULAIR) 10 Mg Tablet, 1 TAB PO HS, TAB 03/25/17 Albuterol Sulfate 90 Mcg/Act (PROAIR HFA 90 MCG/ACT) 8.5 Gm Hfa.aer.ad, 2 PUFF IH Q4-6H Y for SHORTNESS OF BREATH, INHALER 03/25/17 Budesonide/Formoterol Fumarate (SYMBICORT 160-4.5 MCG INHALER) 10.2 Gm Inh, 10.2 GM INH DAILY, INH 03/25/17 Discontinued Reported Medications Lisinopril (LISINOPRIL) 5 Mg Tablet, 5 MG PO EVENING, TAB 12/27/17 Ibuprofen (IBUPROFEN) 600 Mg Tablet, 1 TAB PO Q6H Y for PAIN, #20 TAB 12/05/17 Ibuprofen (IBUPROFEN) 600 Mg Tablet, 1 TAB PO Q6H, #20 TAB 12/29/17 Oxycodone/Acetaminophen (OXYCODONE/ACETAMINOPHEN 5MG/325 MG) 5 Mg/325 Mg Tab, 1- 2 TAB PO Q6H Y for PAIN, #40 12/22/17 Tamsulosin Hcl (FLOMAX) 0.4 Mg Cap.er.24h, 0.4 MG PO DAILY, #30 CAP 12/05/17 Docusate Sodium (COLACE) 100 Mg Capsule, 100 MG PO BID, #30 CAPSULE 05/23/17 Discontinued Scripts Ondansetron Hcl (ZOFRAN) 4 Mg Tablet, 4 MG PO Q6H Y for NAUSEA/VOMITING, #10 Prov:MACK KELLOGG DO 06/12/17 Ibuprofen (IBUPROFEN) 800 Mg Tablet, 1 TAB PO Q8H for PAIN for 7 Days, #20 TAB Prov:GEORGE JONES MD 12/26/17 Diet: Diabetic Activity: As Tolerated Copies to: PATRICIA GOODWIN MD Venous Thromboembolism Antithrombotics Is Pt On Any Antithrombotics?: No KATIE BLANTON DO Jan 04, 2018 10:41
[2018-01-04 11:51] VITALS: BP 124/74
== END 2018-01-04 16:00 | disposition home or self-care (01) | DRG 862 ==
LOC: ER 14:50 → MED 17:33
PROVIDERS: ADMIT Family Medicine; ATTEND Family Medicine
DX: T81.4XXA Infection following a procedure, initial encounter (principal); A41.9 Sepsis, unspecified organism; N10 Acute pyelonephritis; Z68.43 Body mass index [BMI] 50.0-59.9, adult; I10 Essential (primary) hypertension; E11.9 Type 2 diabetes mellitus without complications; B96.5 Pseudomonas (aeruginosa) (mallei) (pseudomallei) as the cause of diseases classified elsewhere; J45.909 Unspecified asthma, uncomplicated; E66.01 Morbid (severe) obesity due to excess calories; E78.00 Pure hypercholesterolemia, unspecified; K21.9 Gastro-esophageal reflux disease without esophagitis; G89.29 Other chronic pain; F41.8 Other specified anxiety disorders; G47.33 Obstructive sleep apnea (adult) (pediatric); G25.81 Restless legs syndrome; R91.1 Solitary pulmonary nodule; Z87.891 Personal history of nicotine dependence; Z99.81 Dependence on supplemental oxygen; Z98.1 Arthrodesis status
CPT/HCPCS: 36415; 36416; 71046; 74177; 81001; 82040; 82247; 82310; 82374; 82435; 82565; 82947; 82948; 83605; 84075; 84132; 84155; 84295; 84450; 84460; 84520; 85025; 87040; 87077; 87088; 87186; 87502; 94640; 96361; 96365; 96375; 99285; A4353; J0131; J0696; J0713; J1170; J1650; J2270; J2405; J2543; J2550; J7030; J7050; Q9967

== ENCOUNTER → 2018-04-20 | Outpatient (CLI) | payer BC ==
[2018-01-01 09:14] VITALS: BMI 50.2
[~2018-04-20] MED LIST changes: +LEVO-85 PO; -METF-420 PO; +METF-421 PO
--- NOTE | 2018-04-20 16:33 | RADIOLOGY IMAGING REPORT ---
FACILITY: [facility] [place] PATIENT NAME: Shani Azul : 1960 MR: [id number] V: [id number] EXAM DATE: ORDERING PHYSICIAN: PATRICIA GOODWIN TECHNOLOGIST: Location: Patient: Shani Azul : 1960 Visit/Account:[id number] Date of Sevice: 04/20/2018 ABDOMEN PELVIS ESWL CYSTO W/O HISTORY: Blank pain x3 days TECHNIQUE: Axial images acquired through the abdomen/pelvis. Coronal and sagittal reformatting also performed. No IV contrast administered. Dose Lowering Technique One of the following dose optimization techniques was utilized in the performance of this exam: Autom ated exposure control; adjustment of the mA and/or kV according to the patient's size; or use of an i terative reconstruction technique. Specific details can be referenced in the facility's radiology C T exam operational policy. COMPARISON: December 29, 2017 FINDINGS: Visualized lung bases: The previously noted 10 mm right middle lobe nodule, 12 mm right lower lobe n odule and 6 mm central right lower lobe nodule are not included on the study. There are however mult iple tiny micronodules seen in the visualized lower lung bhatti that appear relatively unchanged Hepatobiliary: Cholelithiasis although no evidence of bony ductal dilatation. Moderate hepatomegaly unchanged Spleen: Negative. Adrenals: Thickening of the left adrenal gland with a tiny myolipoma present Pancreas: Negative. Kidneys ureters and bladder: Left perinephric stranding has improved. There is a tiny 1 mm nonobstru cting calculus lower pole of the left kidney. At least five calculi are seen in the right renal karolyn ecting system largest measuring approximately 8 mm in diameter. There is now a 4 mm stone at the rig ht UPJ with mild right hydronephrosis. The bladder is decompressed therefore not ideally evaluated Genitalia: Atrophic uterus GI: Negative. Vessels/spaces/nodes: Very mild atherosclerotic calcifications in the abdominal aorta Bones/soft tissues: Small umbilical hernia containing fat Postsurgical changes lumbar spine. Spondylotic changes lumbar spine also present Additional findings: None pertinent. IMPRESSION: Left perinephric stranding has improved Tiny 1 mm nonobstructing calculus lower pole the left kidney At least five calculi are seen in the right renal collecting system; largest measuring approximately 8 mm in diameter There is now a 4 mm stone at the right UPJ producing mild right hydronephrosis Cholelithiasis although no evidence of biliary ductal dilatation Additional chronic findings as described Report Dictated By: Faye Colvin MD at 04/20/2018 3:35 PM Report E-Signed By: Faye Colvin MD at 04/20/2018 4:28 PM JASN:[id number]
== END ==
LOC: CT 14:29
PROVIDERS: ATTEND Urology
DX: N20.0 Calculus of kidney (principal); N13.30 Unspecified hydronephrosis; K80.20 Calculus of gallbladder without cholecystitis without obstruction; R31.0 Gross hematuria; M54.5 Low back pain; R82.79 Other abnormal findings on microbiological examination of urine
CPT/HCPCS: 74176; 81001; 87088

== ENCOUNTER 2018-04-27 01:10 | Day surgery (SDC) | payer BC ==
[2018-01-01 09:14] VITALS: Ht 172.7 cm; Wt 152.0 kg
--- NOTE | 2018-04-25 17:28 | HISTORY AND PHYSICAL ---
DATE OF ADMISSION: April 27, 2018 CHIEF COMPLAINT Kidney stones. HISTORY OF PRESENT ILLNESS Patient is a 57-year-old white female with a history of kidney stones who most recently presented to the Urology Clinic with right flank pain. CT scan performed showed a 5 x 6 mm stone at the right UPJ. In addition, she had three other stones in the lower pole measuring 6, 7, and 8 mm in addition to two punctate calcifications. She also had a punctate calcification in the left lower pole. 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 The patient is now being brought to the operating room for planned right ureteroscopy and/or extracorporeal shock wave lithotripsy as indicated. PAST MEDICAL HISTORY * Hypercholesterolemia. * Obesity. * Gastroesophageal reflux disease. * Low back pain. * Hypertension. * Anxiety. * Type 2 diabetes. * Kidney stones. * Anemia. * Obstructive sleep apnea, on CPAP. * Restless leg syndrome. * Asthma. * Stable pulmonary nodules. PAST SURGICAL HISTORY * Low back surgery. * Colonoscopy. * Left extracorporeal shock wave lithotripsy, stent placement, and ureteroscopy. CURRENT MEDICATIONS * Symbicort. * Albuterol. * Wellbutrin. * Neurontin. * Oxygen. * Glipizide. * Hydrocortisone. * Acetaminophen. * Lorazepam. * Metformin. * Singulair. * Omeprazole. * Mirapex. * Simvastatin. * Trazodone. * CPAP. ALLERGIES Patient denies any known drug allergies. FAMILY HISTORY Noncontributory. REVIEW OF SYSTEMS Patient denies productive cough, chest pain, shortness of breath, fever, chills , liver disease, or bleeding disorder. PHYSICAL EXAMINATION GENERAL: The patient is an obese, white female in no acute distress. HEENT: Normocephalic, atraumatic. CHEST: Clear to auscultation bilaterally. CARDIOVASCULAR: Regular rate and rhythm. ABDOMINAL: Soft, nontender. No masses are palpated. GENITOURINARY: Deferred to the OR. EXTREMITIES: Without clubbing, cyanosis, or edema. NEUROLOGIC: Nonfocal. IMPRESSION A 57-year-old white female with history of obstructing proximal right ureteral stone with additional lower pole stones on the right. PLAN We will perform right ureteroscopy, stent placement, and extracorporeal shock wave lithotripsy as indicated. [facility]
[~2018-04-27] VITALS: Ht 172.7 cm; Wt 152.0 kg
[2018-04-27 07:52] LABS: PLATELET COUNT, AUTOMATED 282 K/uL (150-450)
[2018-04-27 08:09] LABS: INR 0.94
[2018-04-27] MEDS ORDERED: NORMOSOL R SOLN(*) 1000 ML BAG 1,000 ML IV PRN (08:30)
[2018-04-27] MEDS ORDERED: ceFAZolin(*) 2GM/D5W 50ML 50 ML IVPB ONE (08:30)
[2018-04-27] MEDS ORDERED: LIDOCAINE/SOD BICARB 8.4% SYR ID ONE (08:30)
[2018-04-27] MEDS ORDERED: MIDAZOLAM 2 MG/2 ML VIAL IVP PRN (08:30)
[2018-04-27] MEDS ORDERED: ALBUTEROL/IPRATROPIUM 3 ML NEB ONE (08:35)
[2018-04-27 08:36] VITALS: BP 109/60
[2018-04-27] MEDS ORDERED: DEXAMETHASONE SOD 4 MG/ML VIAL ONE (08:38)
[2018-04-27] MEDS ORDERED: PROPOFOL EMUL(*) 10MG/ML 20 ML 20 ML ONE (08:38)
[2018-04-27] MEDS ORDERED: ONDANSETRON 4 MG/2 ML VIAL ONE (08:38)
[2018-04-27] MEDS ORDERED: fentaNYL CITR 100 MCG/2 ML AMP ONE (08:38)
[2018-04-27] MEDS ORDERED: LIDOCAINE MPF 1% 5 ML VIAL ONE (08:38)
[2018-04-27] MEDS ORDERED: METOCLOPRAMIDE 10 MG TAB PO ONE (08:40)
[2018-04-27] MEDS ORDERED: KETAMINE HCL 200 MG/20 ML MDV ONE (08:43)
--- NOTE | 2018-04-27 08:54 | RADIOLOGY IMAGING REPORT ---
FACILITY: [facility] PATIENT NAME: Shani Azul : 1960 MR: [id number] V: [id number] EXAM DATE: ORDERING PHYSICIAN: PATRICIA GOODWIN TECHNOLOGIST: Location: [facility] Patient: Shani Azul : 1960 Visit/Account:[id number] Date of Sevice: 04/27/2018 ABDOMEN PELVIS ESWL CYSTO W/O Provided history: History of kidney stones. ESWL Additional pertinent history: none TECHNIQUE: Spiral scan was obtained from the lower chest through the symphysis without intravenous co ntrast. Source images were reformatted in the coronal and sagittal planes. Additional series performed today: none One of the following dose optimization techniques was utilized in the performance of this exam: Autom ated exposure control; adjustment of the mA and/or kV according to the patient's size; or use of an i terative reconstruction technique. Specific details can be referenced in the facility's radiology CT exam operational policy. COMPARISON STUDIES: Last CT 04/12/18 FINDINGS: Lower chest: Negative Liver/biliary: Liver is normal and unchanged. There are heavily calcified stones in the gallbladder. Bile ducts normal. Pancreas: Negative Spleen: Negative Adrenal glands: Negative Kidneys / ureters / bladder / genitourinary / retroperitoneum: In the interim since prior, a stone at the right UPJ appears to have repositioned into the lower pole or at least a fragment from that ston e has repositioned. Mild hydronephrosis has resolved. Additional stones in the medulla of the mid and lower pole right kidney are little changed. No fragments are identified in the course of the ureter currently. Left kidney reveals 1 and possibly 2 punctate medullary calcifications of the lower pole. No hydronep hrosis. No stones the course of the left ureter. None in the bladder wall or bladder lumen. Bowel / peritoneum / mesenteries: Negative Vessels: negative Lymph nodes: negative Body wall: Small noninflamed fat-containing subumbilical hernia is unchanged. Bones: Previous posterior lumbar interbody fusion L4-5 and L5-S1 remains in normal alignment. IMPRESSION: 1. Right UPJ stone appears to have repositioned into the lower pole the right kidney or at least a fr agment of the stone. Mild hydronephrosis has resolved. 2. Additional nonobstructing stones right kidney and minimally lower pole left kidney are stable othe rwise. 3. Gallstones. Report Dictated By: Miguelangel Willis MD at 04/27/2018 8:43 AM Report E-Signed By: Miguelangel Willis MD at 04/27/2018 8:51 AM WSN:[id number]
[2018-04-27] MEDS ORDERED: IOPAMIDOL-200 50 ML VIAL IS ONE (09:05)
[2018-04-27] MEDS ORDERED: BELLADONNA ALK/OPIUM 60MG SUPP PR ONE ×2 (09:05→11:26)
[2018-04-27] MEDS ORDERED: SUGAMMADEX SOD 500 MG/5 ML SDV ONE (09:10)
[2018-04-27] MEDS ORDERED: ROCURONIUM BROM 10 MG/ML 10 ML ONE (09:10)
[2018-04-27] MEDS ORDERED: KETOROLAC 30 MG/ML VIAL ONE (10:18)
[2018-04-27] MEDS ORDERED: HYDR-4309 PO (11:27)
[2018-04-27] MEDS ORDERED: TAMS0.4C25 PO (11:29)
[2018-04-27] MEDS ORDERED: DOCU-416 PO (11:30)
[2018-04-27] MEDS ORDERED: OXYB10TA21 PO (11:31)
[2018-04-27] MEDS ORDERED: IBUP600T22 PO (11:32)
[2018-04-27] MEDS ORDERED: PHEN200T32 PO (11:32)
[2018-04-27] MEDS ORDERED: APAP/HYDROCODONE 325/5 TAB ONE (11:55)
[2018-04-27] MEDS ORDERED: PHENAZOPYRIDINE 200 MG TAB PO ONE (12:15)
[2018-04-27] MEDS ORDERED: PHENAZOPYRIDINE 200 MG TAB ONE (12:26)
--- NOTE | 2018-04-27 14:50 | OPERATIVE REPORT 1 ---
EVENT DATE: April 27, 2018 SURGEON: Dimas Escalante MD ANESTHESIOLOGIST: Chandrakant Leos MD ANESTHESIA: General anesthetic. PREOPERATIVE DIAGNOSIS Right renal calculi. POSTOPERATIVE DIAGNOSIS Right renal calculi. PROCEDURES PERFORMED 1. Cystoscopy. 2. Right double-J ureteral stent placement. 3. Right extracorporeal shock wave lithotripsy. ESTIMATED BLOOD LOSS Minimal. INTRAVENOUS FLUIDS Crystalloid. DRAINS 6-Gabonese x 24 cm Contour stent on right. PATHOLOGY None. COMPLICATIONS None. CONDITION Patient taken to recovery room awake, in stable condition. STATEMENT OF MEDICAL NECESSITY Patient is a 57-year-old white female with a history of kidney stones who recently presented to Urology Clinic with right flank pain. A CT scan was performed which showed four stones in the right kidney as well as having a 5 x 6 stone at the right UPJ. The patient states her pain has mostly resolved over the past three to four days. A followup scan revealed no definitive calcifications along the course of the ureter. The stone at the UPJ had migrated back into the renal pelvis. She is now being brought to the operating room for planned stent placement, followed by extracorporeal shock wave lithotripsy. DESCRIPTION OF OPERATION PERFORMED The patient was brought to the operating room. After general anesthetic was obtained, she was placed in the dorsal lithotomy position and prepped and draped in usual sterile manner. Anesthetic cystoscopy was performed with the 21 -Gabonese rigid Wei sheath and a 30-degree lens. She had slit-like ureteral orifices, both effluxing clear urine. The right ureteral orifice was cannulated with a 6-Gabonese opening access catheter which was advanced up to the mid ureter. This was then used to place a 0.035 wire. The access catheter was removed, and the wire was used to place a 6-Gabonese x 24 cm Contour stent. The wire was removed. She was noted to have good curling in the renal pelvis by fluoroscopy and good curling in the bladder by direct vision. Patient's bladder was drained through the cystoscopic sheath. She was repositioned supine on the lithotripsy table. The larger of her stones in the lower pole were identified with two-plane fluoroscopy and placed in the lithotripsy crosshairs. Treatment was begun at a power setting of 3 and gradually increased to a power setting of 3.5 over the course of the first 300 shocks. A three-minute pause was then performed, and treatment was resumed. The power was gradually increased up to a power of 8 over the first of 1500 shocks. She received a total of 3000 shocks to the right mid and lower poles, treating her multiple calculi. At each movement of the lower crosshairs, lithotripsies were positioned in two planes to ensure adequate treatment of the stones. Following treatment of her kidney stones, she was awakened in the operating room and taken to the recovery area in stable condition. PLAN The plan is to allow the patient to be discharged home today on [place], Colace, Flomax, Pyridium, Ditropan. The plan is to have the patient get a followup low- dose CT scan in four to six weeks to evaluate treatment results. If she is deemed stone-free, we will remove her stent in the office. If she still has remaining calculi, we will return to the operating room for followup ureteroscopy with stent removal. CHE
== END 2018-04-27 12:09 | disposition home or self-care (01) ==
LOC: OR 01:10
PROVIDERS: ATTEND Urology
DX: N20.0 Calculus of kidney (principal); E11.9 Type 2 diabetes mellitus without complications; J44.9 Chronic obstructive pulmonary disease, unspecified; G47.33 Obstructive sleep apnea (adult) (pediatric); K21.9 Gastro-esophageal reflux disease without esophagitis; Z79.899 Other long term (current) drug therapy; I10 Essential (primary) hypertension; E78.00 Pure hypercholesterolemia, unspecified; D64.9 Anemia, unspecified; E66.9 Obesity, unspecified
CPT/HCPCS: 36415; 36416; 50590; 52332; 74176; 81001; 82948; 84703; 85025; 85610; 94640; C1758; C1894; J1100; J1885; J2001; J2250; J2405; J2704; J3010; J3490; J7620; J8597; J0690; Q9966

== ENCOUNTER → 2018-05-16 | Outpatient (CLI) | payer BC ==
[2018-01-01 09:14] VITALS: BMI 50.2
--- NOTE | 2018-05-16 10:09 | RADIOLOGY IMAGING REPORT ---
FACILITY: [facility] PATIENT NAME: Shani Azul : 1960 MR: [id number] V: [id number] EXAM DATE: ORDERING PHYSICIAN: PATRICIA GOODWIN TECHNOLOGIST: Location: Patient: Shani Azul : 1960 Visit/Account:[id number] Date of Sevice: 05/16/2018 EXAMINATION: CT Abdomen and Pelvis Without Contrast 05/16/2018 9:00 AM HISTORY: Stones. Right stent placement. TECHNIQUE: Renal stone protocol - Spiral scan was obtained through the kidneys, ureters and bladder without intravenous contrast. One of the following dose optimization techniques was utilized in the performance of this exam: Autom ated exposure control; adjustment of the mA and/or kV according to the patient's size; or use of an i terative reconstruction technique. Specific details can be referenced in the facility's radiology C T exam operational policy. COMPARISON STUDIES: 04/27/2018. FINDINGS: Right kidney and ureter: Right ureteral stent now in place. No stone or stone fragment in the ureter along the stent. Small intrarenal stones are again shown. Left kidney and ureter: Small nonobstructive lower pole stone. No ureteral stone or dilatation. Bladder: Distal end of the stent is coiled in the bladder. No bladder calculus. No visible mass defin ed without contrast. Liver / biliary: Cholelithiasis Pancreas: negative Spleen: negative Adrenal glands: Mild benign-appearing thickening of the left adrenal. Retroperitoneum: negative Pelvic structures: negative Bowel / peritoneum / mesenteries: negative Vessels: Minimal atherosclerosis. Musculoskeletal / Body wall: Previous lower lumbar laminectomy and L4-S1 fusion. Lymph node assessment: Nonspecific portacaval lymph node. No clear pathologic adenopathy. Lower chest: Micronodules in both bases measuring up to 6 mm in the right (series 2, image 1). IMPRESSION: 1. Indwelling right ureteral stent. No stone or stone fragment along the ureter. 2. Nonobstructive intrarenal nephrolithiasis greater in number on the right than the left. 3. Indeterminate bibasilar pulmonary micronodules again shown. Report Dictated By: Yo Estes MD at 05/16/2018 9:33 AM Report E-Signed By: Yo Estes MD at 05/16/2018 10:04 AM WSN:[id number]
== END ==
LOC: CT 01:54
PROVIDERS: ATTEND Urology
DX: N20.0 Calculus of kidney (principal); K80.20 Calculus of gallbladder without cholecystitis without obstruction; R91.8 Other nonspecific abnormal finding of lung field; Z96.0 Presence of urogenital implants
CPT/HCPCS: 74176

== ENCOUNTER 2018-05-31 23:20 | Emergency (ER) | payer BC ==
[2018-01-01 09:14] VITALS: Wt 154.2 kg
[~2018-05-31 23:20] MED LIST changes: +BUSP15TA69 PO; +HYDR-393 PO; +LISI-362 PO
[2018-05-31] MEDS ORDERED: ASPIRIN 81 MG CHEW PO ONE (23:55)
--- NOTE | 2018-06-01 00:22 | ER Report ---
History and Physical Time Seen By MD: 23:30 Hx. 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 Occured while she was sitting at work; has not been stressed/anxious; not worsened by exertion or improved by rest; has not happened previously. Prior cardiac w/up 5 yrs ago at OSH included cath; all neg per patient. Pt has copd/asthma, on 2L 02 and noted that she was recently hypoxic, turned 02 up to 3 l; this improved hypoxia and non productive cough which she had developed; shoulder pain did not seem to be associated with this. No prior VTE, no recent illnesses REVIEW OF SYSTEMS: Constitutional: No fever, no chills. Eyes: No discharge. ENT: No sore throat. Cardiovascular: No chest pain, no palpitations - pain speciifcally starts in shoulder; does not radiate to chest or back Respiratory: occ nonproductive cough. no current sog Gastrointestinal: No abdominal pain, no vomiting; pt does note she has been constipated in past week, with small hard stools Genitourinary: No hematuria. Musculoskeletal: No back pain. Skin: No rashes. Neurological: No headache. Remainder of the 14 system rev: Yes Allergies: Coded Allergies: No Known Drug Allergies (Unverified , 05/31/18) Home Meds Reported Medications Acetaminophen/Hydrocodone (HYDROCODON-ACETAMINOPHN 10-325) 1 Each Tab, 1 EACH PO QHS Y for PAIN, TAB 05/29/18 Gabapentin (GABAPENTIN) 300 Mg Capsule, 900 MG PO QHS, CAPSULE 05/29/18 Lisinopril (LISINOPRIL) 10 Mg Tablet, 10 MG PO QDAY, TAB 05/29/18 Buspirone Hcl (BUSPIRONE HCL) 15 Mg Tablet, 15 MG PO BID, TAB 05/29/18 Phenazopyridine Hcl (PHENAZOPYRIDINE HCL) 200 Mg Tablet, 200 MG PO TID Y for BURNING WITH URINATION, #20 TAB 04/27/18 Oxybutynin Chloride (DITROPAN XL) 10 Mg Tab.er.24, 10 MG PO QDAY Y for URGENCY, #20 TAB 04/27/18 Docusate Sodium (COLACE) 100 Mg Capsule, 100 MG PO BID, #30 CAPSULE 04/27/18 Tamsulosin Hcl (FLOMAX) 0.4 Mg Cap.er.24h, 0.4 MG PO QDPC Y for TO HELP URINATION, #20 CAP 04/27/18 Gabapentin (GABAPENTIN) 300 Mg Capsule, 300 MG PO QAM, CAPSULE 05/17/17 Simvastatin (SIMVASTATIN) 20 Mg Tablet, 20 MG PO HS, TAB 03/25/17 Dulaglutide (Trulicity) 0.75 Mg/0.5 Ml Pen.injctr, 0.5 ML INJ QWEEK 03/25/17 Bupropion Hcl (WELLBUTRIN XL) 300 Mg Tab.er.24h, 300 MG PO QDAY, TAB 03/25/17 Glipizide (GLIPIZIDE) 10 Mg Tablet, 10 MG PO BID 03/25/17 Trazodone Hcl (TRAZODONE HCL) 150 Mg Tablet, 150 MG PO QHS 03/25/17 Metformin Hcl (METFORMIN HCL) 1,000 Mg Tablet, 1 TAB PO BID, TAB 03/25/17 Pramipexole Di-Hcl (PRAMIPEXOLE DIHYDROCHLORIDE) 0.125 Mg Tablet, 0.125 MG PO TID 03/25/17 Omeprazole (OMEPRAZOLE) 40 Mg Capsule.dr, 40 MG PO QDAY, CAP 03/25/17 Montelukast Sodium (SINGULAIR) 10 Mg Tablet, 1 TAB PO HS, TAB 03/25/17 Albuterol Sulfate 90 Mcg/Act (PROAIR HFA 90 MCG/ACT) 8.5 Gm Hfa.aer.ad, 2 PUFF IH Q4-6H Y for SHORTNESS OF BREATH, INHALER 03/25/17 Budesonide/Formoterol Fumarate (SYMBICORT 160-4.5 MCG INHALER) 10.2 Gm Inh, 10.2 GM INH DAILY, INH 03/25/17 Discontinued Reported Medications Ibuprofen (IBUPROFEN) 600 Mg Tablet, 1 TAB PO Q6H Y for PAIN, #20 TAB 04/27/18 Hydrocodone Bit/Acetaminophen (NORCO 5-325 TABLET) 1 Each Tablet, 1-2 EACH PO Q6H Y for PAIN, #30 TAB 04/27/18 Buspirone Hcl (BUSPIRONE HCL) 5 Mg Tab, 10 MG PO BID, #20 TAB 11/29/17 Lorazepam (LORAZEPAM) 0.5 Mg Tablet, 0.5 MG PO Q4-6H Y for ANXIETY 03/25/17 Past Medical/Surgical History DM; copd/asthma, chronic RLE lymphedema Reviewed Nurses Notes: Yes Hx Smoking: Yes (QUIT 1989. UP UNTIL THEN, SMOKED 1-2 PPD X 10 YRS) Smoking Status: Former Smoker Hx Substance Use Disorder: No Hx Alcohol Use: Yes Constitutional Vital Sign - Last 24 Hours 05/31/18 05/31/18 05/31/18 06/01/18 23:25 23:29 23:50 00:05 Temp 98.8 Pulse 92 99 Resp 18 B/P (MAP) 122/78 (93) 122/78 Pulse Ox 94 O2 Delivery Nasal Cannula O2 Flow Rate 3.0 06/01/18 06/01/18 06/01/18 06/01/18 00:07 00:20 00:37 00:50 Pulse 98 93 Resp 20 17 B/P (MAP) 114/86 (95) 94/48 (63) Pulse Ox 93 94 O2 Delivery Nasal Cannula Nasal Cannula O2 Flow Rate 3 3 06/01/18 06/01/18 06/01/18 00:55 01:25 02:06 Pulse 93 96 Resp 18 17 B/P (MAP) 90/56 (67) Pulse Ox 94 O2 Delivery Nasal Cannula O2 Flow Rate 3 Physical Exam General Appearance: [The patient is alert, has no immediate need for airway protection and no signs of toxicity.] pt has 02 by NC Eyes: Pupils equal and round no pallor or injection. ENT, Mouth: Mucous membranes are moist. Respiratory: There are no retractions, lungs are clear to auscultation. Cardiovascular: Regular rate and rhythm. ii/vi systolic murmur. No carotid bruits Gastrointestinal: abd mild ttp throughout, llq > other quadrants Neurological: alert, oriented, nad Skin: Warm and dry, no rashes. Musculoskeletal: Neck is supple non tender. Extremities are nontender, nonswollen and have full range of motion; however pt does have baseline rle lymphedema; wearing compression sock DIFFERENTIAL DIAGNOSIS: After history and physical exam differential diagnosis was considered for chest pain including but not limited to myocardial ischemia, pericarditis pulmonary embolus, chest wall pain, pleural inflammation and pulmonary infectious causes.shortness of breath including but not limited to pulmonary infectious process, COPD, asthma, pulmonary embolus and congestive heart failure. Ultimately if ED eval for emergent findings is unremarkable, symptoms/findings may be c/w diaphragm irritation due to stool burden, leading to l shoulder pain Medical Decision Making Data Points Result Diagram: 06/01/18 0014 06/01/18 0014 Laboratory Hematology Test 05/31/18 23:58 06/01/18 00:14 06/01/18 03:19 Urine Color Yellow Urine Clarity Clear Urine pH 5.0 pH (4.8-9.5) Urine Specific [place] 1.016 Urine Protein 30 mg/dL (NEGATIVE) Urine Glucose (UA) Negative mg/dL (NEGATIVE) Urine Ketones Negative mg/dL (NEGATIVE) Urine Blood Large (NEGATIVE) Urine Nitrite Negative (NEGATIVE) Urine Bilirubin Negative (NEGATIVE) Urine Urobilinogen Negative mg/dL (0.2-1.9) Urine Leukocyte Esterase Small (NEGATIVE) Urine RBC 281 /HPF (0-2/HPF) Urine WBC 9 /HPF (0-5/HPF) Urine Squamous Epithelial Cells Moderate /LPF (</=FEW) Urine Transitional Epithelial Cells Few /LPF (NONE-FEW) Urine Bacteria Negative /HPF (NONE-FEW) Urine Hyaline Casts Few /LPF (NONE-FEW) Urine Mucus Few /HPF (NONE-FEW) Red Blood Count 4.60 M/uL (4.17-5.56) Mean Corpuscular Volume 82.0 fL (80.0-96.0) Mean Corpuscular Hemoglobin 27.7 pg (26.0-33.0) Mean Corpuscular Hemoglobin Concent 33.7 g/dL (32.0-36.0) Red Cell Distribution Width 16.1 % (11.5-14.5) Mean Platelet Volume 7.4 fL (7.2-11.1) Neutrophils (%) (Auto) 67.4 % (39.4-72.5) Lymphocytes (%) (Auto) 25.0 % (17.6-49.6) Monocytes (%) (Auto) 5.0 % (4.1-12.4) Eosinophils (%) (Auto) 1.8 % (0.4-6.7) Basophils (%) (Auto) 0.8 % (0.3-1.4) Nucleated RBC Relative Count (auto) 0.0 /100WBC Neutrophils # (Auto) 9.9 K/uL (2.0-7.4) Lymphocytes # (Auto) 3.7 K/uL (1.3-3.6) Monocytes # (Auto) 0.7 K/uL (0.3-1.0) Eosinophils # (Auto) 0.3 K/uL (0.0-0.5) Basophils # (Auto) 0.1 K/uL (0.0-0.1) Nucleated RBC Absolute Count (auto) 0.00 K/uL Prothrombin Time 12.7 seconds (12.0-14.4) Prothromb Time International Ratio 0.95 Activated Partial Thromboplast Time 30 seconds (23-35) D-Dimer Quantitative (PE/DVT) 0.45 ug/ml (0-0.50) Sodium Level 135 mmol/L (137-145) Potassium Level 4.3 mmol/L (3.5-5.0) Chloride Level 96 mmol/L (98-107) Carbon Dioxide Level 27 mmol/L (22-31) Blood Urea Nitrogen 13 mg/dl (7-18) Creatinine 0.80 mg/dl (0.52-1.04) Glomerular Filtration Rate Calc > 60.0 Random Glucose 150 mg/dl (75-110) Calcium Level 9.3 mg/dl (8.4-10.2) Total Bilirubin 0.4 mg/dl (0.2-1.3) Aspartate Amino Transf (AST/SGOT) 28 U/L (0-35) Alanine Aminotransferase (ALT/SGPT) 42 U/L (0-56) Alkaline Phosphatase 80 U/L (0-126) B-Type Natriuretic Peptide < 5 pg/ml (0-100) Total Protein 7.8 g/dl (6.3-8.2) Albumin 4.2 g/dl (3.5-5.0) Human Chorionic Gonadotropin, Qual Negative (NEGATIVE) Troponin I < 0.012 ng/ml Chemistry Test 05/31/18 23:58 06/01/18 00:14 06/01/18 03:19 Urine Color Yellow Urine Clarity Clear Urine pH 5.0 pH (4.8-9.5) Urine Specific [place] 1.016 Urine Protein 30 mg/dL (NEGATIVE) Urine Glucose (UA) Negative mg/dL (NEGATIVE) Urine Ketones Negative mg/dL (NEGATIVE) Urine Blood Large (NEGATIVE) Urine Nitrite Negative (NEGATIVE) Urine Bilirubin Negative (NEGATIVE) Urine Urobilinogen Negative mg/dL (0.2-1.9) Urine Leukocyte Esterase Small (NEGATIVE) Urine RBC 281 /HPF (0-2/HPF) Urine WBC 9 /HPF (0-5/HPF) Urine Squamous Epithelial Cells Moderate /LPF (</=FEW) Urine Transitional Epithelial Cells Few /LPF (NONE-FEW) Urine Bacteria Negative /HPF (NONE-FEW) Urine Hyaline Casts Few /LPF (NONE-FEW) Urine Mucus Few /HPF (NONE-FEW) White Blood Count 14.6 k/uL (4.5-11.0) Red Blood Count 4.60 M/uL (4.17-5.56) Hemoglobin 12.7 g/dL (12.0-16.0) Hematocrit 37.8 % (34.0-47.0) Mean Corpuscular Volume 82.0 fL (80.0-96.0) Mean Corpuscular Hemoglobin 27.7 pg (26.0-33.0) Mean Corpuscular Hemoglobin Concent 33.7 g/dL (32.0-36.0) Red Cell Distribution Width 16.1 % (11.5-14.5) Platelet Count 281 K/uL (150-450) Mean Platelet Volume 7.4 fL (7.2-11.1) Neutrophils (%) (Auto) 67.4 % (39.4-72.5) Lymphocytes (%) (Auto) 25.0 % (17.6-49.6) Monocytes (%) (Auto) 5.0 % (4.1-12.4) Eosinophils (%) (Auto) 1.8 % (0.4-6.7) Basophils (%) (Auto) 0.8 % (0.3-1.4) Nucleated RBC Relative Count (auto) 0.0 /100WBC Neutrophils # (Auto) 9.9 K/uL (2.0-7.4) Lymphocytes # (Auto) 3.7 K/uL (1.3-3.6) Monocytes # (Auto) 0.7 K/uL (0.3-1.0) Eosinophils # (Auto) 0.3 K/uL (0.0-0.5) Basophils # (Auto) 0.1 K/uL (0.0-0.1) Nucleated RBC Absolute Count (auto) 0.00 K/uL Prothrombin Time 12.7 seconds (12.0-14.4) Prothromb Time International Ratio 0.95 Activated Partial Thromboplast Time 30 seconds (23-35) D-Dimer Quantitative (PE/DVT) 0.45 ug/ml (0-0.50) Glomerular Filtration Rate Calc > 60.0 Calcium Level 9.3 mg/dl (8.4-10.2) Total Bilirubin 0.4 mg/dl (0.2-1.3) Aspartate Amino Transf (AST/SGOT) 28 U/L (0-35) Alanine Aminotransferase (ALT/SGPT) 42 U/L (0-56) Alkaline Phosphatase 80 U/L (0-126) B-Type Natriuretic Peptide < 5 pg/ml (0-100) Total Protein 7.8 g/dl (6.3-8.2) Albumin 4.2 g/dl (3.5-5.0) Human Chorionic Gonadotropin, Qual Negative (NEGATIVE) Troponin I < 0.012 ng/ml Coagulation Test 06/01/18 00:14 Prothrombin Time 12.7 seconds Prothromb Time International Ratio 0.95 Activated Partial Thromboplast Time 30 seconds D-Dimer Quantitative (PE/DVT) 0.45 ug/ml Urinalysis Test 05/31/18 23:58 Urine Color Yellow Urine Clarity Clear Urine pH 5.0 pH (4.8-9.5) Urine Specific [place] 1.016 Urine Protein 30 mg/dL (NEGATIVE) Urine Glucose (UA) Negative mg/dL (NEGATIVE) Urine Ketones Negative mg/dL (NEGATIVE) Urine Blood Large (NEGATIVE) Urine Nitrite Negative (NEGATIVE) Urine Bilirubin Negative (NEGATIVE) Urine Urobilinogen Negative mg/dL (0.2-1.9) Urine Leukocyte Esterase Small (NEGATIVE) Urine RBC 281 /HPF (0-2/HPF) Urine WBC 9 /HPF (0-5/HPF) Urine Squamous Epithelial Cells Moderate /LPF (</=FEW) Urine Transitional Epithelial Cells Few /LPF (NONE-FEW) Urine Bacteria Negative /HPF (NONE-FEW) Urine Hyaline Casts Few /LPF (NONE-FEW) Urine Mucus Few /HPF (NONE-FEW) EKG/Imaging EKG Interpretation 12 lead EKG: Rhythm: normal sinus rhythm Krum: normal QRS: normal ST segments: normal Monitor Interpretation: Normal Sinus Rhythm ED Course/Re-evaluation ED Course Pt presents with l shoulder pain intermittent x 1 wk; as above, will r/o emergent cardiopulm etiologies. HD stable in ED. Ultimately, findings unremark with exception of leukocytosis; as abd pelv ct is unremark, likely due to known ureeroltih and stent. No ruq ttp c/w her gallstones. Rpt trop neg; HEART score < 4; reasonable for d/c with close f/u for stress test. Ultimately, may be secondary to constipation. Decision to Disposition Date: Jun 01, 2018 Decision to Disposition Time: 03:49 Depart Departure Latest Vital Signs Vital Signs Date Time Temp Pulse Resp B/P (MAP) Pulse Ox O2 Delivery O2 Flow Rate FiO2 06/01/18 02:06 17 90/56 (67) 94 Nasal Cannula 3 06/01/18 01:25 96 05/31/18 23:29 98.8 Impression: Primary Impression: Left shoulder pain Additional Impression: Leukocytosis Condition: Improved Disposition: HOME OR SELF-CARE Referrals: EYAD GARCIA PA-C (PCP) Departure Forms: ER Transition Record, Medications Reconciliation, Off Work/ School Form, School or Work Release?: Work Number of days to be released: 1 Patient Portal Information Patient Instructions: Chest Pain (ED), Leukocytosis (ED) Additional Instructions: As we discussed, 1) hold metformin for 2 days 2) Follow up with your primary doctor to schedule a stress test in 2-3 days. Return for worsening symptoms, or any concerns. Problem Qualifiers Primary Impression: Left shoulder pain Chronicity: acute Qualified Codes: M25.512 - Pain in left shoulder Additional Impression: Leukocytosis Leukocytosis type: unspecified Qualified Codes: D72.829 - Elevated white blood cell count, unspecified RUCHI MALDONADO MD Jun 01, 2018 00:22
[2018-06-01 00:27] LABS: PLATELET COUNT, AUTOMATED 281 K/uL (150-450)
[2018-06-01 00:41] LABS: INR 0.95
--- NOTE | 2018-06-01 00:45 | EKG ---
FACILITY: [facility] PATIENT NAME: AMEE GUADARRAMA : [id number] MR: [id number] V: [id number] EXAM DATE: ORDERING PHYSICIAN: RUCHI MALDONADO TECHNOLOGIST: BEATRICE Test Reason : CP Blood Pressure : / mmHG Vent. Rate : 098 BPM Atrial Rate : 098 BPM P-R Int : 146 ms QRS Dur : 088 ms QT Int : 358 ms P-R-T Axes : 056 033 054 degrees QTc Int : 457 ms Normal sinus rhythm Normal ECG When compared with ECG of 26-DEC-2017 14:39, No significant change was found Confirmed by JENARO MEANS ([id number]) on 06/01/2018 7:56:40 AM Referred By: Confirmed By:JENARO MEANS
--- NOTE | 2018-06-01 01:03 | RADIOLOGY IMAGING REPORT ---
[place] [facility] [place] NAME: Shani Azul : 1960 MR: [id number] V: [id number] EXAM DATE: ORDERING PHYSICIAN: RUCHI MALDONADO TECHNOLOGIST: Location: [facility] [place] Patient: Shani Azul : 1960 Visit/Account:[id number] Date of Sevice: 05/31/2018 CHEST PA AND LAT COMPARISONS: 2 view chest dated December 31, 2017 ADDITIONAL PERTINENT HISTORY: Chest pain for one week with history of pneumonia FINDINGS: Cardiomediastinal silhouette: Negative. Pulmonary vasculature: Negative. Lung bhatti: Negative. Pleural spaces: Negative. Osseous structures: Negative. Surrounding soft tissues: Negative. IMPRESSION: No evidence of acute cardiopulmonary disease. Report Dictated By: Marvin Bautista MD at 06/01/2018 12:57 AM Report E-Signed By: Marvin Bautista MD at 06/01/2018 12:59 AM WSN:[id number]
[2018-06-01] MEDS ORDERED: IOPAMIDOL 76% 75 ML INFUS BTL 75 ML ONE (01:12)
--- NOTE | 2018-06-01 02:04 | RADIOLOGY IMAGING REPORT ---
FACILITY: [facility] [place] PATIENT NAME: Shani Azul : 1960 MR: [id number] V: [id number] EXAM DATE: ORDERING PHYSICIAN: RUCHI MALDONADO TECHNOLOGIST: Location: [facility] Patient: Shani Azul : 1960 Visit/Account:[id number] Date of Sevice: 06/01/2018 COMPUTED TOMOGRAPHY ABDOMEN AND PELVIS WITH INTRAVENOUS CONTRAST DATE OF EXAM: 06/01/2018 1:00 AM INDICATION: Left upper quadrant pain, leukocytosis. COMPARISON: Numerous prior examinations, most recent CT abdomen and pelvis 05/16/2018. TECHNIQUE: Contrast enhanced abdomen and pelvis CT performed during the injection of 75 ml of Isovue 370. Sagittal and coronal reconstructions were performed. One of the following dose optimization te chniques was utilized in the performance of this exam: Automated exposure control; adjustment of the mA and/or kV according to the patient's size; or use of an iterative reconstruction technique. Spec [facility] details can be referenced in the facility's radiology CT exam operational policy. FINDINGS: Lung bases: There are numerous bilateral pulmonary nodules, similar in appearance to 03/25/2017. The l argest in the medial aspect of the right middle lobe on image 7 series 2 measures 11 x 10 mm. Liver and hepatic vasculature: At least moderate hepatomegaly with no suspicious focal lesion. Gallbladder and bile ducts: Multiple large calculi in the gallbladder lumen, no evidence of cholecys titis. Spleen: Normal. Pancreas: Normal. Adrenals: Mild thickening of the left adrenal gland. Kidneys, ureters and bladder: Unchanged right ureteral stent which appears appropriately positioned. No hydronephrosis. Multiple nonobstructing right renal calculi. Urinary bladder is decompressed. Retroperitoneum and aorta: Nonaneurysmal aorta with mild atherosclerosis. No adenopathy. GI tract, mesentery and peritoneum: Nonacute. Normal appendix. Uterus and adnexa: Normal. Bones and soft tissues: No acute abnormality or suspicious lesion. Unchanged L4-S1 fusion. Small f at-containing umbilical hernia. IMPRESSION: 1. No significant change or acute abnormality. 2. Right ureteral stents in place with no hydronephrosis, hydroureter or ureteral calculus. 3. Multiple small nonobstructing right renal calculi. 4. At least moderate hepatomegaly. 5. Cholelithiasis with no evidence of cholecystitis. 6. Numerous bilateral pulmonary nodules unchanged in appearance to 03/25/2017 Report Dictated By: Bryant Pathak MD at 06/01/2018 1:49 AM Report E-Signed By: Bryant Pathak MD at 06/01/2018 1:59 AM WSN:[id number]
[2018-06-01 03:46] VITALS: BP 124/70
--- NOTE | 2018-06-01 07:34 | ER Report ---
History and Physical Time Seen By MD: 23:30 Hx. of Stated Complaint: LEFT ARM SHOULER AND NECK PAIN DENIES ANY TRAUMA HPI/ROS CHIEF COMPLAINT: shoulder pain, shortness of breath HISTORY OF PRESENT ILLNESS: [must have 4 elements] REVIEW OF SYSTEMS: Constitutional: [No fever, no chills.] Eyes: [No discharge.] ENT: [No sore throat.] Cardiovascular: [No chest pain, no palpitations.] Respiratory: [No cough, no shortness of breath.] Gastrointestinal: [No abdominal pain, no vomiting.] Genitourinary: [No hematuria.] Musculoskeletal: [No back pain.] Skin: [No rashes.] Neurological: [No headache.] Allergies: Coded Allergies: No Known Drug Allergies (Unverified , 05/31/18) Home Meds Reported Medications Acetaminophen/Hydrocodone (HYDROCODON-ACETAMINOPHN 10-325) 1 Each Tab, 1 EACH PO QHS Y for PAIN, TAB 05/29/18 Gabapentin (GABAPENTIN) 300 Mg Capsule, 900 MG PO QHS, CAPSULE 05/29/18 Lisinopril (LISINOPRIL) 10 Mg Tablet, 10 MG PO QDAY, TAB 05/29/18 Buspirone Hcl (BUSPIRONE HCL) 15 Mg Tablet, 15 MG PO BID, TAB 05/29/18 Phenazopyridine Hcl (PHENAZOPYRIDINE HCL) 200 Mg Tablet, 200 MG PO TID Y for BURNING WITH URINATION, #20 TAB 04/27/18 Oxybutynin Chloride (DITROPAN XL) 10 Mg Tab.er.24, 10 MG PO QDAY Y for URGENCY, #20 TAB 04/27/18 Docusate Sodium (COLACE) 100 Mg Capsule, 100 MG PO BID, #30 CAPSULE 04/27/18 Tamsulosin Hcl (FLOMAX) 0.4 Mg Cap.er.24h, 0.4 MG PO QDPC Y for TO HELP URINATION, #20 CAP 04/27/18 Gabapentin (GABAPENTIN) 300 Mg Capsule, 300 MG PO QAM, CAPSULE 05/17/17 Simvastatin (SIMVASTATIN) 20 Mg Tablet, 20 MG PO HS, TAB 03/25/17 Dulaglutide (Trulicity) 0.75 Mg/0.5 Ml Pen.injctr, 0.5 ML INJ QWEEK 03/25/17 Bupropion Hcl (WELLBUTRIN XL) 300 Mg Tab.er.24h, 300 MG PO QDAY, TAB 03/25/17 Glipizide (GLIPIZIDE) 10 Mg Tablet, 10 MG PO BID 03/25/17 Trazodone Hcl (TRAZODONE HCL) 150 Mg Tablet, 150 MG PO QHS 03/25/17 Metformin Hcl (METFORMIN HCL) 1,000 Mg Tablet, 1 TAB PO BID, TAB 03/25/17 Pramipexole Di-Hcl (PRAMIPEXOLE DIHYDROCHLORIDE) 0.125 Mg Tablet, 0.125 MG PO TID 03/25/17 Omeprazole (OMEPRAZOLE) 40 Mg Capsule.dr, 40 MG PO QDAY, CAP 03/25/17 Montelukast Sodium (SINGULAIR) 10 Mg Tablet, 1 TAB PO HS, TAB 03/25/17 Albuterol Sulfate 90 Mcg/Act (PROAIR HFA 90 MCG/ACT) 8.5 Gm Hfa.aer.ad, 2 PUFF IH Q4-6H Y for SHORTNESS OF BREATH, INHALER 03/25/17 Budesonide/Formoterol Fumarate (SYMBICORT 160-4.5 MCG INHALER) 10.2 Gm Inh, 10.2 GM INH DAILY, INH 03/25/17 Discontinued Reported Medications Ibuprofen (IBUPROFEN) 600 Mg Tablet, 1 TAB PO Q6H Y for PAIN, #20 TAB 04/27/18 Hydrocodone Bit/Acetaminophen (NORCO 5-325 TABLET) 1 Each Tablet, 1-2 EACH PO Q6H Y for PAIN, #30 TAB 04/27/18 Buspirone Hcl (BUSPIRONE HCL) 5 Mg Tab, 10 MG PO BID, #20 TAB 11/29/17 Lorazepam (LORAZEPAM) 0.5 Mg Tablet, 0.5 MG PO Q4-6H Y for ANXIETY 03/25/17 Hx Smoking: Yes (QUIT 1989. UP UNTIL THEN, SMOKED 1-2 PPD X 10 YRS) Smoking Status: Former Smoker Hx Substance Use Disorder: No Hx Alcohol Use: Yes Constitutional Vital Sign - Last 24 Hours 05/31/18 06/01/18 23:29 00:05 Temp 98.8 Pulse 92 Resp 18 B/P (MAP) 122/78 Pulse Ox 94 O2 Delivery Nasal Cannula O2 Flow Rate 3.0 Medical Decision Making Data Points Laboratory Hematology Test 05/31/18 23:58 Chemistry Test 05/31/18 23:58 Urinalysis Test 05/31/18 23:58 Depart Departure Latest Vital Signs Vital Signs Date Time Temp Pulse Resp B/P (MAP) Pulse Ox O2 Delivery O2 Flow Rate FiO2 06/01/18 00:05 3.0 05/31/18 23:29 98.8 92 18 122/78 94 Nasal Cannula Referrals: EYAD GARCIA PA-C (PCP) RUCHI MALDONADO MD Jun 01, 2018 07:34
== END 2018-06-01 04:01 | disposition home or self-care (01) ==
LOC: ER 23:40
DX: D72.829 Elevated white blood cell count, unspecified (principal); R07.89 Other chest pain; J44.9 Chronic obstructive pulmonary disease, unspecified; R09.02 Hypoxemia
CPT/HCPCS: 71046; 74177; 81001; 83880; 84484; 84703; 85025; 85379; 85610; 85730; 93005; 99284; Q9967; 82040; 82247; 82310; 82374; 82435; 82565; 82947; 84075; 84132; 84155; 84295; 84450; 84460; 84520

== ENCOUNTER 2018-06-05 02:15 | Day surgery (SDC) | payer BC ==
[2018-01-01 09:14] VITALS: Ht 175.3 cm; Wt 152.4 kg
--- NOTE | 2018-06-02 13:09 | HISTORY AND PHYSICAL ---
DATE OF ADMISSION: June 05, 2018 PREOPERATIVE DIAGNOSIS Right kidney stones with indwelling ureteral stent. HISTORY OF PRESENT ILLNESS Patient is a 57-year-old white female with a history of kidney stones who most recently underwent right stent placement with extracorporeal shock wave lithotripsy. Followup films revealed several small fragments remaining in the right kidney, measuring 2 to 4 mm in size, numbering approximately seven to eight. Her films were shown to the patient and discussed and she is now being brought to the operating room for planned stent removal with ureteroscopy and stone manipulation. PAST MEDICAL HISTORY 1. Hypercholesterolemia. 2. Obesity. 3. Gastroesophageal reflux disease. 4. Low back pain. 5. Hypertension. 6. Anxiety. 7. Type 2 diabetes mellitus. 8. Kidney stones. 9. Anemia. 10. Obstructive sleep apnea, on CPAP. 11. Restless leg syndrome with chronic right lower extremity edema. 12. Asthma. 13. Stable pulmonary nodules. PAST SURGICAL HISTORY 1. Colonoscopy. 2. Low back surgery. 3. Left extracorporeal shock wave lithotripsy with stent placement and ureteroscopy. 4. Right JJ with extracorporeal shock wave lithotripsy CURRENT MEDICATIONS 1. Symbicort. 2. Wellbutrin. 3. Albuterol. 4. Home oxygen. 5. Neurontin. 6. Glipizide. 7. Hydrochlorothiazide. 8. Tylenol. 9. Lorazepam. 10. Metformin. 11. Singulair. 12. Omeprazole. 13. Mirapex. 14. Simvastatin. 15. Trazodone. 16. CPAP. ALLERGIES No known drug allergies. FAMILY HISTORY Noncontributory. REVIEW OF SYSTEMS Patient denies productive cough, shortness of breath, fever, chills, liver disease, bleeding disorder or gross hematuria. She did have some atypical chest pain, which was evaluated in the emergency room on June 01. She had a CT scan performed which showed good stent placement. There were no acute changes. Her laboratory data was normal with creatinine of 0.8. Troponin was normal. test was negative. PHYSICAL EXAMINATION Patient is a well-developed, moderately obese white female in no acute distress. HEENT: Normocephalic/atraumatic, CHEST: Clear to auscultation bilaterally. CV: Regular rate and rhythm. ABDOMEN: Soft, nontender. No masses palpated. : Deferred to OR. EXTREMITIES: Without clubbing, cyanosis or edema. NEURO: Nonfocal. ASSESSMENT Patient is a 57-year-old white female with a history of kidney stones and with right indwelling stent with remaining right stone fragments. PLAN We will perform anesthetic cystoscopy, stent removal and ureteroscopy with stone manipulation. MTDD
[~2018-06-05] VITALS: Ht 175.3 cm; Wt 152.4 kg
[~2018-06-05 02:15] MED LIST changes: -KETOROLAC 15 MG/ML VIAL IM ONE; -KETOROLAC 15 MG/ML VIAL IVP ONE; -KETOROLAC 60 MG/2 ML VIAL IM ONE; -LIDOCAINE/SOD BICARB 8.4% SYR ID ONE; -NITR-105 PO; -NORMOSOL R SOLN(*) 1000 ML BAG 1,000 ML IV PRN
[2018-06-05 07:20] VITALS: BP 113/66
[2018-06-05] MEDS ORDERED: LEVOFLOXACIN/D5W*500 MG/100 ML 100 ML IVPB ONE (07:35)
[2018-06-05] MEDS ORDERED: LIDOCAINE/SOD BICARB 8.4% SYR ID ONE (07:35)
[2018-06-05] MEDS ORDERED: NORMOSOL R SOLN(*) 1000 ML BAG 1,000 ML IV PRN (07:35)
[2018-06-05] MEDS ORDERED: ceFAZolin(*) 1 GM VIAL 1 GM in NS(*) 0.9% 100 ML ADDVANT BAG 100 ML IVPB ONE (07:35)
[2018-06-05] MEDS ORDERED: MIDAZOLAM 2 MG/2 ML VIAL IVP PRN (07:35)
[2018-06-05] MEDS ORDERED: ceFAZolin(*) 2GM/D5W 50ML 50 ML IVPB ONE (07:35)
[2018-06-05] MEDS ORDERED: PROPOFOL EMUL(*) 10MG/ML 20 ML 20 ML ONE (07:49)
[2018-06-05] MEDS ORDERED: LIDOCAINE MPF 1% 5 ML VIAL ONE (07:49)
[2018-06-05] MEDS ORDERED: fentaNYL CITR 100 MCG/2 ML AMP ONE ×2 (07:53)
[2018-06-05] MEDS ORDERED: IOPAMIDOL-200 50 ML VIAL IS ONE ×2 (08:17→15:00)
[2018-06-05] MEDS ORDERED: BELLADONNA ALK/OPIUM 60MG SUPP PR ONE (08:17)
[2018-06-05] MEDS ORDERED: SUCCINYLCHOL CHL 200MG/10ML VL ONE (08:30)
[2018-06-05] MEDS ORDERED: DEXAMETHASONE SOD PHOS 10MG/ML ONE (08:38)
[2018-06-05] MEDS ORDERED: ONDANSETRON 4 MG/2 ML VIAL ONE (08:40)
[2018-06-05] MEDS ORDERED: KETOROLAC 30 MG/ML VIAL ONE (08:46)
[2018-06-05] MEDS ORDERED: WATER ONE (09:26)
[2018-06-05] MEDS ORDERED: IBUP600T22 PO (11:37)
[2018-06-05] MEDS ORDERED: NITR-105 PO (11:37)
[2018-06-05 11:40] VITALS: BP 101/67
[2018-06-05 11:42] VITALS: BP 111/65
[2018-06-05 11:46] VITALS: BP 98/57
--- NOTE | 2018-06-05 12:06 | PIERCE CYSTOSCOPY ---
EVENT DATE: June 05, 2018 SURGEON: Dimas Escalante MD ANESTHESIOLOGIST: Pal Whitman M.D. ANESTHESIA: General PREOPERATIVE DIAGNOSES Right renal callculi with indwelling renal stent. POSTOPERATIVE DIAGNOSES Right renal callculi with indwelling renal stent. PROCEDURES PERFORMED 1. Cystoscopy. 2. Grasping and removal or right JJ stent. 3. Right semi-rigid ureteroscopy with grasping and removal of stones x numerous , approximately 50 small fragments ranging from 2 to 4 mm in size. 4. Right retrograde pyelogram. 5. Placement of right internal JJ ureteral stent. ESTIMATED BLOOD LOSS Minimal. IV FLUIDS Crystalloids. DRAINS 6-Arabic x 24 cm Contour stent on right. PATHOLOGY Stone fragments sent for permanent analysis. COMPLICATIONS None. CONDITION The patient was taken to recovery room awake and in stable condition. STATEMENT OF MEDICAL NECESSITY The patient is a 57-year-old white female with history of kidney stones who most recently underwent right stent placement followed by extracorporeal shock wave lithotripsy . Followup CT scan revealed several stones ranging from 2-4 mm in size, primarily in the mid and lower pole calices. She is now being brought to the operating room for ureteroscopy with stone manipulation. DESCRIPTION OF OPERATION PERFORMED The patient was brought to the operating room and after general anesthetic was obtained, she was placed in the dorsal lithotomy position and prepped and draped in the usual sterile manner. Anesthetic cystoscopy was performed with the 21-Arabic rigid scope and 30-degree lens. She had a normal-appearing urethra. The stent was emanating from the right ureteral orifice. It was grasped at its distal end about the meatus. A 0.38 wire was introduced into the lumen of the stent and advanced to a midpole tamela under fluoroscopic imaging. The stent was then removed. This wire was then used to place a navigation ureteral access sheath of 11 x 13 Arabic x 36 cm in length. After the access sheath was removed, the internal obturator was removed and the flexible Delroy ureteroscope was advanced up the access catheter to the level of the UPJ. A flexible retrograde renal ureteroscopy was then performed. She was noted to have a significant amount of stone fragments in the lower pole. The Wilian 8 mm grasping forceps was then introduced and approximately ten of these fragments were removed from the lower pole after grasping individually and removing down the access sheath. Following this, the lower pole was vigorously irrigated through the scope to remove any remaining fragments up to the mid and upper pole calices. At this point, most of the stones were in the midpole tamela. Again, these ranged from 2 to 4 mm. Multiple of these stone fragments were grasped both individually and in clusters for extraction. Finally, the upper pole caliceal system was inspected and a few remaining fragments were noted. These were also individually grasped and removed. At the conclusion of the procedure, each tamela and the upper pole were inspected after a retrograde pyelogram was performed to delineate the anatomy and ensure that each caliceal system was accounted for. At the conclusion of the procedure, no significant fragments could be identified in any of the calciceal system or along the case of the UPJ or proximal ureter. At this point, the scope was removed. The 0.38 wire was advanced in the navigation sheath up to the kidney. The navigation sheath was removed. The wire was backloaded into the cystoscope and this was used to place a 6-Arabic by 24 cm Contour stent. The string was left on the distal end. The stent had good coiling in the renal pelvis by fluoroscopy and good coiling in the bladder by grade vision. The patient's bladder was drained through the cystoscopic sheath. The string was then taped to the perineum with Tegaderm. A Bions suppository was given at conclusion of the case. The patient was awakened in the operating room and taken to the recovery area in stable condition. PLAN We will allow the patient to be discharged home today on Winside, Colace, Flomax, Pyridium, Ditropan, Motrin and seven days of Bactrim. We will see her in the Urology Clinic on June 09, 2018 for removal of stent via the string. We will then proceed with metabolic evaluation and obtain a renal ultrasound in for to six weeks to confirm no residual hydronephrosis. CHE
--- NOTE | 2018-06-05 16:08 | RADIOLOGY IMAGING REPORT ---
[place] [facility] [place] Shani Azul : 1960 MR: [id number] V: [id number] EXAM DATE: ORDERING PHYSICIAN: PATRICIA GOODWIN TECHNOLOGIST: Location: [facility] [place] Patient: Shani Azul : 1960 Visit/Account:[id number] Date of Sevice: 06/05/2018 Exam type: RETROGRADE PYELOGRAM History: KIDNEY STONES Comparison: CT abdomen and pelvis June 01, 2018. Findings: 143 C-arm intraoperative spot views were submitted over the abdomen and pelvis. The total fluoroscop y time was 1.18 minutes. The fluoroscopy dose was 150.42 mGray . On initial images a right ureteral stent is in place. Multiple images demonstrate placement of a rig ht ureteroscope. Contrast was injected into the right renal collecting system demonstrating moderate dilatation. The numerous nonobstructing right renal calculi identified on the prior CT were obscure d by bowel gas final images demonstrate replacement of a right ureteral stent. Incidentally noted ar e postoperative changes of lumbar spine IMPRESSION: 1. As above Report Dictated By: Faye Colvin MD at 06/05/2018 4:01 PM Report E-Signed By: Faye Colvin MD at 06/05/2018 4:05 PM WSN:[id number]
== END 2018-06-05 11:40 | disposition home or self-care (01) ==
LOC: OR 02:15
PROVIDERS: ATTEND Urology
DX: N20.0 Calculus of kidney (principal); E11.9 Type 2 diabetes mellitus without complications
CPT/HCPCS: 36416; 52332; 52352; 74420; 82365; 82948; 88300; C1758; C1769; C1894; C2617; J0330; J1100; J1885; J2405; J2704; J3010; Q9966; J0690

== ENCOUNTER → 2018-06-05 | Outpatient (CLI) | payer BC ==
[2018-01-01 09:14] VITALS: BMI 50.2
[~2018-06-05] MED LIST changes: +KETOROLAC 15 MG/ML VIAL IM ONE; +KETOROLAC 15 MG/ML VIAL IVP ONE; +KETOROLAC 60 MG/2 ML VIAL IM ONE; +LIDOCAINE/SOD BICARB 8.4% SYR ID ONE; +NITR-105 PO; +NORMOSOL R SOLN(*) 1000 ML BAG 1,000 ML IV PRN
== END ==
LOC: OR 14:56 → EDSTATUS 15:30
PROVIDERS: ATTEND Urology
DX: Z02.9 Encounter for administrative examinations, unspecified (principal)

== ENCOUNTER 2018-07-30 21:29 | Emergency (ER) | payer BC ==
[2018-01-01 09:14] VITALS: Wt 145.2 kg
[~2018-07-30 21:29] MED LIST changes: -METF-421 PO; +METF-452 PO; +NITR-105 PO
[2018-07-30] MEDS ORDERED: ACETAMINOPHEN 325 MG TAB PO ONE (21:50)
--- NOTE | 2018-07-30 21:59 | ER Report ---
History and Physical Time Seen By MD: 21:53 Hx. of Stated Complaint: PT STARTED FEELING FEVERISH AROUND 14:00. PT REPORTS LEFT SIDED BACK PAIN. HPI/ROS CHIEF COMPLAINT: FEVER HISTORY OF PRESENT ILLNESS: PT states that she felt fine earlier today until around 2pm when she felt as if she was having a fever. Pt states she took a nap and when she woke up still felt like she had a fever so came to ed to be checked. Did not take motrin or tylenol at home. no dysuria. no n/v/d. Pt does state she has low back pain but that is not new for her "i had a fusion and chronic back pain". she did say the back pain usually is midline but tonight seems more on left side. Pain is achy. Has hx of kidney stones and pyelo. pt is not sure if this is similar to her prior kidney stones. Pt has copd and is on 2 liters of oxygen at baseline. Pt does feel she might have been coughing more today but does not feel sob and no productivity. no uri symptoms. no cp. REVIEW OF SYSTEMS: Constitutional: + fever, no chills. Eyes: No discharge. ENT: No sore throat. Cardiovascular: No chest pain, no palpitations. Respiratory: + cough, no shortness of breath. Gastrointestinal: No abdominal pain, no vomiting. Genitourinary: No hematuria. Musculoskeletal: + back pain. Skin: No rashes. Neurological: No headache. Allergies: Coded Allergies: No Known Drug Allergies (Unverified , 07/30/18) Home Meds Reported Medications Acetaminophen/Hydrocodone (HYDROCODON-ACETAMINOPHN 10-325) 1 Each Tab, 1 EACH PO QHS PRN for PAIN, TAB 05/29/18 Gabapentin (GABAPENTIN) 300 Mg Capsule, 900 MG PO QHS, CAPSULE 05/29/18 Lisinopril (LISINOPRIL) 10 Mg Tablet, 10 MG PO QDAY, TAB 05/29/18 Buspirone Hcl (BUSPIRONE HCL) 15 Mg Tablet, 15 MG PO BID, TAB 05/29/18 Oxybutynin Chloride (DITROPAN XL) 10 Mg Tab.er.24, 10 MG PO QDAY PRN for URGENCY, #20 TAB 04/27/18 Docusate Sodium (COLACE) 100 Mg Capsule, 100 MG PO BID, #30 CAPSULE 04/27/18 Gabapentin (GABAPENTIN) 300 Mg Capsule, 300 MG PO QAM, CAPSULE 05/17/17 Simvastatin (SIMVASTATIN) 20 Mg Tablet, 20 MG PO HS, TAB 03/25/17 Dulaglutide (Trulicity) 0.75 Mg/0.5 Ml Pen.injctr, 0.5 ML INJ QWEEK 03/25/17 Bupropion Hcl (WELLBUTRIN XL) 300 Mg Tab.er.24h, 300 MG PO QDAY, TAB 03/25/17 Glipizide (GLIPIZIDE) 10 Mg Tablet, 10 MG PO BID 03/25/17 Trazodone Hcl (TRAZODONE HCL) 150 Mg Tablet, 150 MG PO QHS 03/25/17 Metformin Hcl (METFORMIN HCL) 1,000 Mg Tablet, 1 TAB PO BID, TAB 03/25/17 Pramipexole Di-Hcl (PRAMIPEXOLE DIHYDROCHLORIDE) 0.125 Mg Tablet, 0.125 MG PO TID 03/25/17 Omeprazole (OMEPRAZOLE) 40 Mg Capsule.dr, 40 MG PO QDAY, CAP 03/25/17 Montelukast Sodium (SINGULAIR) 10 Mg Tablet, 1 TAB PO HS, TAB 03/25/17 Albuterol Sulfate 90 Mcg/Act (PROAIR HFA 90 MCG/ACT) 8.5 Gm Hfa.aer.ad, 2 PUFF IH Q4-6H PRN for SHORTNESS OF BREATH, INHALER 03/25/17 Budesonide/Formoterol Fumarate (SYMBICORT 160-4.5 MCG INHALER) 10.2 Gm Inh, 10.2 GM INH DAILY, INH 03/25/17 Discontinued Reported Medications Nitrofurantoin Monohyd/M-Cryst (MACROBID 100 MG CAPSULE) 100 Mg Capsule, 100 MG PO BID, #14 CAPSULE 06/05/18 Ibuprofen (IBUPROFEN) 600 Mg Tablet, 1 TAB PO Q6H PRN for PAIN, #20 TAB 06/05/18 Phenazopyridine Hcl (PHENAZOPYRIDINE HCL) 200 Mg Tablet, 200 MG PO TID PRN for BURNING WITH URINATION, #20 TAB 04/27/18 Tamsulosin Hcl (FLOMAX) 0.4 Mg Cap.er.24h, 0.4 MG PO QDPC PRN for TO HELP URINATION, #20 CAP 04/27/18 Past Medical/Surgical History PAST MEDICAL HISTORY 1. Hypercholesterolemia. 2. Obesity. 3. Gastroesophageal reflux disease. 4. Chronic low back pain. 5. Hypertension. 6. Anxiety. 7. Type 2 diabetes. 8. Kidney stones. 9. Anemia. 10. Obstructive sleep apnea on CPAP. 11. Asthma. 12. Restless leg syndrome. 13. Pulmonary nodules. PAST SURGICAL HISTORY 1. Low back surgery. 2. Colonoscopy. 3. Extracorporeal shock wave lithotripsy with left renal stent placement Reviewed Nurses Notes: Yes Old Medical Records Reviewed: Yes Hx Smoking: Yes (QUIT 1989. UP UNTIL THEN, SMOKED 1-2 PPD X 10 YRS) Smoking Status: Former Smoker Hx Substance Use Disorder: No Hx Alcohol Use: Yes Constitutional Vital Sign - Last 24 Hours 07/30/18 07/30/18 07/30/18 07/30/18 21:33 21:35 21:44 21:59 Temp 100.1 Pulse 114 110 113 Resp 18 B/P (MAP) 118/75 (89) 118/75 Pulse Ox 74 91 91 O2 Delivery Room Air 07/30/18 07/30/18 07/30/18 07/30/18 22:02 22:34 22:39 22:40 Pulse 108 B/P (MAP) 112/65 (81) 120/69 (86) Pulse Ox 91 O2 Flow Rate 3.0 07/30/18 07/30/18 07/30/18 07/30/18 22:44 23:25 23:29 23:30 Pulse 106 102 B/P (MAP) 119/74 (89) 102/64 (77) Pulse Ox 91 92 Physical Exam General Appearance: The patient is alert, has no immediate need for airway prot ection and no signs of toxicity. Eyes: Pupils equal and round no pallor or injection, EOMI ENT: no pharyngeal erythema or exudates, Mucous membranes are moist, TM are nl b/l Respiratory: There are no retractions, lungs are clear to auscultation. Cardiovascular: Regular rate and rhythm. pulses are equal and symmetrical Gastrointestinal: Abdomen is soft and non tender, no masses, bowel sounds norm al, no guarding, no rigidity or rebound Neurological: Cranial nerves II-XII grossly intact, no sensory or motor loss Skin: Warm and dry, no rashes. Musculoskeletal: Neck is supple non tender, no vertebral tenderness Extremities are nontender, non swollen and have full range of motion. DIFFERENTIAL DIAGNOSIS: After history and physical exam differential diagnosis was considered for uti, pyelo, viral syndrome, divertic, discitis Medical Decision Making Data Points Result Diagram: 07/30/18219907/30/182199 Laboratory Hematology Test 07/30/18 22:00 07/30/18 22:30 Red Blood Count 4.81 M/uL (4.17-5.56) Mean Corpuscular Volume 81.1 fL (80.0-96.0) Mean Corpuscular Hemoglobin 27.4 pg (26.0-33.0) Mean Corpuscular Hemoglobin Concent 33.8 g/dL (32.0-36.0) Red Cell Distribution Width 16.1 % (11.5-14.5) Mean Platelet Volume 7.9 fL (7.2-11.1) Neutrophils (%) (Auto) 80.3 % (39.4-72.5) Lymphocytes (%) (Auto) 12.6 % (17.6-49.6) Monocytes (%) (Auto) 5.7 % (4.1-12.4) Eosinophils (%) (Auto) 0.7 % (0.4-6.7) Basophils (%) (Auto) 0.7 % (0.3-1.4) Nucleated RBC Relative Count (auto) 0.0 /100WBC Neutrophils # (Auto) 13.7 K/uL (2.0-7.4) Lymphocytes # (Auto) 2.1 K/uL (1.3-3.6) Monocytes # (Auto) 1.0 K/uL (0.3-1.0) Eosinophils # (Auto) 0.1 K/uL (0.0-0.5) Basophils # (Auto) 0.1 K/uL (0.0-0.1) Nucleated RBC Absolute Count (auto) 0.01 K/uL Sodium Level 136 mmol/L (137-145) Potassium Level 4.1 mmol/L (3.5-5.0) Chloride Level 96 mmol/L (98-107) Carbon Dioxide Level 27 mmol/L (22-31) Blood Urea Nitrogen 14 mg/dl (7-18) Creatinine 0.60 mg/dl (0.52-1.04) Glomerular Filtration Rate Calc > 60.0 Random Glucose 170 mg/dl (75-110) Calcium Level 9.3 mg/dl (8.4-10.2) Total Bilirubin 0.6 mg/dl (0.2-1.3) Aspartate Amino Transf (AST/SGOT) 29 U/L (0-35) Alanine Aminotransferase (ALT/SGPT) 45 U/L (0-56) Alkaline Phosphatase 98 U/L (0-126) Total Protein 8.2 g/dl (6.3-8.2) Albumin 4.2 g/dl (3.5-5.0) Urine Color Yellow Urine Clarity Clear Urine pH 5.0 pH (4.8-9.5) Urine Specific [place] 1.024 Urine Protein Negative mg/dL (NEGATIVE) Urine Glucose (UA) Negative mg/dL (NEGATIVE) Urine Ketones Negative mg/dL (NEGATIVE) Urine Blood Negative (NEGATIVE) Urine Nitrite Negative (NEGATIVE) Urine Bilirubin Negative (NEGATIVE) Urine Urobilinogen 4.0 mg/dL (0.2-1.9) Urine Leukocyte Esterase Negative (NEGATIVE) Urine RBC <1 /HPF (0-2/HPF) Urine WBC 10 /HPF (0-5/HPF) Urine Squamous Epithelial Cells Moderate /LPF (</=FEW) Urine Bacteria Negative /HPF (NONE-FEW) Urine Mucus Few /HPF (NONE-FEW) Chemistry Test 07/30/18 22:00 07/30/18 22:30 White Blood Count 17.1 k/uL (4.5-11.0) Red Blood Count 4.81 M/uL (4.17-5.56) Hemoglobin 13.2 g/dL (12.0-16.0) Hematocrit 39.0 % (34.0-47.0) Mean Corpuscular Volume 81.1 fL (80.0-96.0) Mean Corpuscular Hemoglobin 27.4 pg (26.0-33.0) Mean Corpuscular Hemoglobin Concent 33.8 g/dL (32.0-36.0) Red Cell Distribution Width 16.1 % (11.5-14.5) Platelet Count 323 K/uL (150-450) Mean Platelet Volume 7.9 fL (7.2-11.1) Neutrophils (%) (Auto) 80.3 % (39.4-72.5) Lymphocytes (%) (Auto) 12.6 % (17.6-49.6) Monocytes (%) (Auto) 5.7 % (4.1-12.4) Eosinophils (%) (Auto) 0.7 % (0.4-6.7) Basophils (%) (Auto) 0.7 % (0.3-1.4) Nucleated RBC Relative Count (auto) 0.0 /100WBC Neutrophils # (Auto) 13.7 K/uL (2.0-7.4) Lymphocytes # (Auto) 2.1 K/uL (1.3-3.6) Monocytes # (Auto) 1.0 K/uL (0.3-1.0) Eosinophils # (Auto) 0.1 K/uL (0.0-0.5) Basophils # (Auto) 0.1 K/uL (0.0-0.1) Nucleated RBC Absolute Count (auto) 0.01 K/uL Glomerular Filtration Rate Calc > 60.0 Calcium Level 9.3 mg/dl (8.4-10.2) Total Bilirubin 0.6 mg/dl (0.2-1.3) Aspartate Amino Transf (AST/SGOT) 29 U/L (0-35) Alanine Aminotransferase (ALT/SGPT) 45 U/L (0-56) Alkaline Phosphatase 98 U/L (0-126) Total Protein 8.2 g/dl (6.3-8.2) Albumin 4.2 g/dl (3.5-5.0) Urine Color Yellow Urine Clarity Clear Urine pH 5.0 pH (4.8-9.5) Urine Specific [place] 1.024 Urine Protein Negative mg/dL (NEGATIVE) Urine Glucose (UA) Negative mg/dL (NEGATIVE) Urine Ketones Negative mg/dL (NEGATIVE) Urine Blood Negative (NEGATIVE) Urine Nitrite Negative (NEGATIVE) Urine Bilirubin Negative (NEGATIVE) Urine Urobilinogen 4.0 mg/dL (0.2-1.9) Urine Leukocyte Esterase Negative (NEGATIVE) Urine RBC <1 /HPF (0-2/HPF) Urine WBC 10 /HPF (0-5/HPF) Urine Squamous Epithelial Cells Moderate /LPF (</=FEW) Urine Bacteria Negative /HPF (NONE-FEW) Urine Mucus Few /HPF (NONE-FEW) Urinalysis Test 07/30/18 22:30 Urine Color Yellow Urine Clarity Clear Urine pH 5.0 pH (4.8-9.5) Urine Specific [place] 1.024 Urine Protein Negative mg/dL (NEGATIVE) Urine Glucose (UA) Negative mg/dL (NEGATIVE) Urine Ketones Negative mg/dL (NEGATIVE) Urine Blood Negative (NEGATIVE) Urine Nitrite Negative (NEGATIVE) Urine Bilirubin Negative (NEGATIVE) Urine Urobilinogen 4.0 mg/dL (0.2-1.9) Urine Leukocyte Esterase Negative (NEGATIVE) Urine RBC <1 /HPF (0-2/HPF) Urine WBC 10 /HPF (0-5/HPF) Urine Squamous Epithelial Cells Moderate /LPF (</=FEW) Urine Bacteria Negative /HPF (NONE-FEW) Urine Mucus Few /HPF (NONE-FEW) Microbiology Microbiology Date/Time Source Procedure Growth Status 07/30/18 22:30 Clean Catch Midstream Ur Received EKG/Imaging Imaging napd; ED Course/Re-evaluation Clinical Indication for ER IV: Hydration, IV Access ED Course check labs, xray 07/30/2018 10:19:52 pm Pts urinalysis showed many epithelial cells. Cancelled culture on that specimen and have patient repeat a clean catch. Pt did not want to have a catherization wbc elevated. will obtain CT with contrast. PT is on metformin so she will need to hold for 48 hours. Pt is also supposed to be on glipizide 10mg bid per pt but she ran out. Pt is asking for new script of glipizide. will provide. 07/31/2018 12:02:56 am PT feeling better after tylenol. Blood cultrues and urine cultures pending. PT understands she will require follow up. Pts ct did not show anything acute. pt was aware of the pulmonary nodules and gall stones. No sign of infection in abd or back. PT told to return if worsening. Decision to Disposition Date: Jul 31, 2018 Decision to Disposition Time: 00:04 Depart Departure Latest Vital Signs Vital Signs Date Time Temp Pulse Resp B/P (MAP) Pulse Ox O2 Delivery O2 Flow Rate FiO2 07/30/18 23:30 102/64 (77) 07/30/18 23:29 102 92 07/30/18 22:40 3.0 07/30/18 21:35 100.1 18 Room Air Impression: Primary Impression: Fever Additional Impressions: Back pain Incidental pulmonary nodule Gallstones Condition: Improved Disposition: HOME OR SELF-CARE Referrals: EYAD GARCIA PA-C (PCP) 2 Days New Scripts Glipizide (GLIPIZIDE) 10 Mg Tablet 10 MG PO BID, #60 TAB Prov: MARQUITA PARDO DO 07/31/18 Patient Instructions: GENERAL ER DISCHARGE INSTRUCTIONS Additional Instructions: Your cat scan today did not show a bowel infection or kidney infection. We did send your blood and urine for culture. If bacteria grows we will call you. Do not take your metformin for the next 48 hours due to the cat scan contrast. Follow up with your doctor. Return if symptoms worsen prior to seeing your doctor. Problem Qualifiers Primary Impression: Fever Fever type: unspecified Qualified Codes: R50.9 - Fever, unspecified Additional Impressions: Back pain Back pain location: low back pain Chronicity: chronic Back pain laterality: left Sciatica presence: without sciatica Qualified Codes: M54.5 - Low back pain; G89.29 - Other chronic pain MARQUITA PARDO DO Jul 30, 2018 21:59
[2018-07-30] MEDS ORDERED: NS(*) 0.9% 1000 ML BAG 1,000 ML IV ONE (22:00)
[2018-07-30 22:22] LABS: PLATELET COUNT, AUTOMATED 323 K/uL (150-450)
--- NOTE | 2018-07-30 22:37 | RADIOLOGY IMAGING REPORT ---
[place]AC[place] [facility] [place] NAME: Shani Azul : 1960 MR: [id number] V: [id number] EXAM DATE: [id number] ORDERING PHYSICIAN: MARQUITA PARDO TECHNOLOGIST: [place] [facility] [place] Shani Azul : 1960 Visit/Account:[id number] Date of Sevice: 07/30/2018 TWO VIEW CHEST 07/30/2018 9:49 PM. INDICATION: RAD Fever, cough. COMPARISON: 06/01/2018 and previous. FINDINGS: Lungs are well-expanded. Mild diffuse interstitial prominence is similar to multiple prior examinations. No suspicious consolidation No pneumothorax or pleural effusion. Pulmonary vasculatu re is unremarkable. Heart size is normal. IMPRESSION: No acute abnormality or significant change. Report Dictated By: Bryant Pathak MD at 07/30/2018 10:31 PM Report E-Signed By: Bryant Pathak MD at 07/30/2018 10:33 PM WSN:[id number]
[2018-07-30] MEDS ORDERED: IOPAMIDOL 76% 100 ML INFUS BTL 100 ML ONE (22:53)
[2018-07-30] MEDS ORDERED: glipiZIDE 5 MG TAB PO SCH (23:45)
--- NOTE | 2018-07-30 23:54 | RADIOLOGY IMAGING REPORT ---
FACILITY: [facility] PATIENT NAME: Shani Azul : 1960 MR: [id number] V: [id number] EXAM DATE: [id number] ORDERING PHYSICIAN: MARQUITA PARDO TECHNOLOGIST: Location: [facility] Patient: Shani Azul : 1960 Visit/Account:[id number] Date of Sevice: 07/30/2018 CT of the abdomen and pelvis with contrast: Indication: Left back pain and left lower quadrant pain. Technique: Helical CT was performed through the abdomen and pelvis following IV contrast enhancement with 100 cc of Isovue-370. Multiplanar reconstructions are reviewed. One of the following dose optimization techniques was utilized in the performance of this exam: Autom ated exposure control; adjustment of the mA and/or kV according to the patient's size; or use of an i terative reconstruction technique. Specific details can be referenced in the facility's radiology CT exam operational policy. Comparison: 06/01/2018 Lower lung bhatti: There are multiple small noncalcified nodules in the lower lung bhatti, without si gnificant change, allowing for technical differences. The etiology is unclear. No new parenchymal or pleural abnormalities are clearly identified. Liver: There is chronic hepatomegaly, with diffuse fatty infiltration. No focal liver lesions are meli peg identified. There is uniform enhancement of the venous structures. Gallbladder/biliary tree: Multiple large calculi are present in the gallbladder. The gallbladder is n ot distended. No pericholecystic inflammation or fluid is identified. The bile ducts are normal in ca liber. Pancreas: Normal in size, shape, and density. There are no signs of peripancreatic inflammation or fl uid. Spleen: Normal in size, shape, and density. Adrenal glands: Within normal limits. Kidneys/urinary bladder: The kidneys are normal in size, shape, and density. There are no signs of fo candy parenchymal abnormality, urinary tract calculus, or obstruction. The bladder is unremarkable, as visualized. Intestinal structures: Unremarkable, as visualized. There are no signs of obstruction or acute inflam matory changes. There are no signs of acute diverticulitis or appendicitis. Pelvis: The uterus and adnexal structures are unremarkable and unchanged. Aorta and vascular structures: There is minimal atherosclerotic calcification in the aorta. There is no evidence of aortic aneurysm. Ascites or fluid collections: None seen. Skeletal structures: Postoperative changes in the lower lumbar spine appear stable. Chronic degenerat julio césar changes in the upper lumbar spine appear stable. No acute skeletal deformity is clearly identifie d. Impression: No evidence of urinary tract calculi or obstruction at the present time. No acute process is otherwise noted in the abdomen or pelvis. Multiple large calculi are present in an otherwise unremarkable appearing gallbladder. There is persistent evidence of multiple small pulmonary nodules, of uncertain etiology. Report Dictated By: Miguelangel Thorpe MD at 07/30/2018 11:35 PM Report E-Signed By: Miguelangel Thorpe MD at 07/30/2018 11:50 PM WSN:[id number]
[2018-07-31] VITALS: BP 103/66
[2018-07-31] MEDS ORDERED: GLIP-154 PO (00:07)
[2018-08-01] MEDS ORDERED: CEPH500T7 PO (02:52)
[2018-08-01] MEDS ORDERED: FLUC150T40 PO (03:30)
== END 2018-07-31 00:20 | disposition home or self-care (01) ==
LOC: ER 21:42
DX: K80.80 Other cholelithiasis without obstruction (principal); M54.5 Low back pain; G89.29 Other chronic pain; R91.1 Solitary pulmonary nodule
CPT/HCPCS: 71046; 74177; 81001; 85025; 87040; 87077; 87088; 87186; 96360; 99284; J7030; Q9967; 82040; 82247; 82310; 82374; 82435; 82565; 82947; 84075; 84132; 84155; 84295; 84450; 84460; 84520

== ENCOUNTER 2018-08-01 01:08 | Emergency (ER) | payer BC ==
[2018-01-01 09:14] VITALS: Wt 145.2 kg
--- NOTE | 2018-08-01 01:26 | ER Report ---
History and Physical Time Seen By MD: 01:20 Hx. of Stated Complaint: PATIENT STATES SHE HAS HAD A FEVER FOR A COUPLE OF DAYS AND WAS SEEN YESTERDAY IN ER, PATIENT STATES SHE LAST TOOK MOTRIN AT 2244, LAST TIME SHE HAD TYLENOL AT 2044. PATIENT STATES FEVER IS 103 AT HOME. HPI/ROS CHIEF COMPLAINT: fever HISTORY OF PRESENT ILLNESS: Pt started Tuesday at 2pm feeling feverish. Pt came to the emergency room last night and was seen by me. Pt at that time had blood work including cultures, urine cultures and cxr. Pt was sent home to follow up with her doctor or return if symptoms worsen. Tonight pt statse she spiked a fever and it did not improve with motrin. Pt denies sob or cp. no abd pain, no dysuria REVIEW OF SYSTEMS: Constitutional: + fever, no chills. Eyes: No discharge. ENT: No sore throat. Cardiovascular: No chest pain, no palpitations. Respiratory: No cough, no shortness of breath. Gastrointestinal: No abdominal pain, no vomiting. Genitourinary: No hematuria. Musculoskeletal: No back pain. Skin: No rashes. Neurological: No headache. Allergies: Coded Allergies: No Known Drug Allergies (Unverified , 08/01/18) Home Meds Active Scripts Cephalexin 500 Mg Tab (KEFLEX 500 MG TAB) 500 Mg Tablet, 500 MG PO BID, #14 TAB Prov:MARQUITA PARDO V 08/01/18 Reported Medications Acetaminophen/Hydrocodone (HYDROCODON-ACETAMINOPHN 10-325) 1 Each Tab, 1 EACH PO QHS PRN for PAIN, TAB 05/29/18 Gabapentin (GABAPENTIN) 300 Mg Capsule, 900 MG PO QHS, CAPSULE 05/29/18 Lisinopril (LISINOPRIL) 10 Mg Tablet, 10 MG PO QDAY, TAB 05/29/18 Buspirone Hcl (BUSPIRONE HCL) 15 Mg Tablet, 15 MG PO BID, TAB 05/29/18 Oxybutynin Chloride (DITROPAN XL) 10 Mg Tab.er.24, 10 MG PO QDAY PRN for URGENCY, #20 TAB 04/27/18 Docusate Sodium (COLACE) 100 Mg Capsule, 100 MG PO BID, #30 CAPSULE 04/27/18 Gabapentin (GABAPENTIN) 300 Mg Capsule, 300 MG PO QAM, CAPSULE 05/17/17 Simvastatin (SIMVASTATIN) 20 Mg Tablet, 20 MG PO HS, TAB 03/25/17 Dulaglutide (Trulicity) 0.75 Mg/0.5 Ml Pen.injctr, 0.5 ML INJ QWEEK 03/25/17 Bupropion Hcl (WELLBUTRIN XL) 300 Mg Tab.er.24h, 300 MG PO QDAY, TAB 03/25/17 Glipizide (GLIPIZIDE) 10 Mg Tablet, 10 MG PO BID 03/25/17 Trazodone Hcl (TRAZODONE HCL) 150 Mg Tablet, 150 MG PO QHS 03/25/17 Metformin Hcl (METFORMIN HCL) 1,000 Mg Tablet, 1 TAB PO BID, TAB 03/25/17 Pramipexole Di-Hcl (PRAMIPEXOLE DIHYDROCHLORIDE) 0.125 Mg Tablet, 0.125 MG PO TID 03/25/17 Omeprazole (OMEPRAZOLE) 40 Mg Capsule.dr, 40 MG PO QDAY, CAP 03/25/17 Montelukast Sodium (SINGULAIR) 10 Mg Tablet, 1 TAB PO HS, TAB 03/25/17 Albuterol Sulfate 90 Mcg/Act (PROAIR HFA 90 MCG/ACT) 8.5 Gm Hfa.aer.ad, 2 PUFF IH Q4-6H PRN for SHORTNESS OF BREATH, INHALER 03/25/17 Budesonide/Formoterol Fumarate (SYMBICORT 160-4.5 MCG INHALER) 10.2 Gm Inh, 10.2 GM INH DAILY, INH 03/25/17 Discontinued Reported Medications Nitrofurantoin Monohyd/M-Cryst (MACROBID 100 MG CAPSULE) 100 Mg Capsule, 100 MG PO BID, #14 CAPSULE 06/05/18 Ibuprofen (IBUPROFEN) 600 Mg Tablet, 1 TAB PO Q6H PRN for PAIN, #20 TAB 06/05/18 Phenazopyridine Hcl (PHENAZOPYRIDINE HCL) 200 Mg Tablet, 200 MG PO TID PRN for BURNING WITH URINATION, #20 TAB 04/27/18 Tamsulosin Hcl (FLOMAX) 0.4 Mg Cap.er.24h, 0.4 MG PO QDPC PRN for TO HELP URINATION, #20 CAP 04/27/18 Discontinued Scripts Glipizide (GLIPIZIDE) 10 Mg Tablet, 10 MG PO BID, #60 TAB Prov:LAURORA,MARQUITA V DO 07/31/18 Past Medical/Surgical History PAST MEDICAL HISTORY 1. Hypercholesterolemia. 2. Obesity. 3. Gastroesophageal reflux disease. 4. Chronic low back pain. 5. Hypertension. 6. Anxiety. 7. Type 2 diabetes. 8. Kidney stones. 9. Anemia. 10. Obstructive sleep apnea on CPAP. 11. Asthma. 12. Restless leg syndrome. 13. Pulmonary nodules. 14. sepsis PAST SURGICAL HISTORY 1. Low back surgery. 2. Colonoscopy. 3. Extracorporeal shock wave lithotripsy with left renal stent placement Reviewed Nurses Notes: Yes Old Medical Records Reviewed: Yes Hx Smoking: Yes (QUIT 1989. UP UNTIL THEN, SMOKED 1-2 PPD X 10 YRS) Smoking Status: Former Smoker Hx Substance Use Disorder: No Hx Alcohol Use: Yes Constitutional Vital Sign - Last 24 Hours 08/01/18 08/01/18 08/01/18 08/01/18 01:14 01:14 01:23 01:30 Temp 101.7 Pulse 117 111 Resp 28 B/P (MAP) 125/74 117/85 (96) Pulse Ox 90 90 O2 Delivery Nasal Cannula O2 Flow Rate 2.0 08/01/18 08/01/18 08/01/18 08/01/18 01:35 01:45 01:50 01:55 Pulse ??? 105 105 103 Pulse Ox 91 91 91 91 08/01/18 08/01/18 08/01/18 08/01/18 02:00 02:05 02:10 02:37 Temp 100.1 Pulse 103 103 104 Pulse Ox 91 91 90 08/01/18 08/01/18 08/01/18 08/01/18 02:45 02:59 03:04 03:19 Temp 100.1 Pulse 100 99 ??? 101 B/P (MAP) 120/77 (91) Pulse Ox 90 93 92 Intake and Output 07/31/18 07/31/18 08/01/18 15:00 23:00 07:00 Intake Total 1000 ml Balance 1000 ml Physical Exam General Appearance: The patient is alert, has no immediate need for airway protection and no signs of toxicity. Eyes: Pupils equal and round no pallor or injection, EOMI ENT: no pharyngeal erythema or exudates, Mucous membranes are moist, TM are nl b/l Respiratory: There are no retractions, lungs are clear to auscultation. Cardiovascular: Tachy. pulses are equal and symmetrical Gastrointestinal: Abdomen is soft and non tender, no masses, bowel sounds normal, no guarding, no rigidity or rebound Neurological: Cranial nerves II-XII grossly intact, no sensory or motor loss Skin: Warm and dry, no rashes. Musculoskeletal: Neck is supple non tender, no vertebral tenderness Extremities are nontender, non swollen and have full range of motion. DIFFERENTIAL DIAGNOSIS: After history and physical exam differential diagnosis was considered for sepsis, uti Medical Decision Making Data Points Result Diagram: 08/01/1813908/01/18139 Laboratory Hematology Test 08/01/18 01:40 Red Blood Count 4.57 M/uL (4.17-5.56) Mean Corpuscular Volume 82.7 fL (80.0-96.0) Mean Corpuscular Hemoglobin 27.4 pg (26.0-33.0) Mean Corpuscular Hemoglobin Concent 33.2 g/dL (32.0-36.0) Red Cell Distribution Width 16.6 % (11.5-14.5) Mean Platelet Volume 7.9 fL (7.2-11.1) Neutrophils (%) (Auto) 83.4 % (39.4-72.5) Lymphocytes (%) (Auto) 8.2 % (17.6-49.6) Monocytes (%) (Auto) 7.9 % (4.1-12.4) Eosinophils (%) (Auto) 0.1 % (0.4-6.7) Basophils (%) (Auto) 0.4 % (0.3-1.4) Nucleated RBC Relative Count (auto) 0.1 /100WBC Neutrophils # (Auto) 14.4 K/uL (2.0-7.4) Lymphocytes # (Auto) 1.4 K/uL (1.3-3.6) Monocytes # (Auto) 1.4 K/uL (0.3-1.0) Eosinophils # (Auto) 0.0 K/uL (0.0-0.5) Basophils # (Auto) 0.1 K/uL (0.0-0.1) Nucleated RBC Absolute Count (auto) 0.01 K/uL Sodium Level 134 mmol/L (137-145) Potassium Level 4.1 mmol/L (3.5-5.0) Chloride Level 95 mmol/L (98-107) Carbon Dioxide Level 29 mmol/L (22-31) Blood Urea Nitrogen 12 mg/dl (7-18) Creatinine 0.70 mg/dl (0.52-1.04) Glomerular Filtration Rate Calc > 60.0 Random Glucose 188 mg/dl (75-110) Calcium Level 9.1 mg/dl (8.4-10.2) Total Bilirubin 0.9 mg/dl (0.2-1.3) Aspartate Amino Transf (AST/SGOT) 20 U/L (0-35) Alanine Aminotransferase (ALT/SGPT) 39 U/L (0-56) Alkaline Phosphatase 92 U/L (0-126) Total Protein 8.1 g/dl (6.3-8.2) Albumin 4.1 g/dl (3.5-5.0) Chemistry Test 08/01/18 01:40 White Blood Count 17.2 k/uL (4.5-11.0) Red Blood Count 4.57 M/uL (4.17-5.56) Hemoglobin 12.5 g/dL (12.0-16.0) Hematocrit 37.8 % (34.0-47.0) Mean Corpuscular Volume 82.7 fL (80.0-96.0) Mean Corpuscular Hemoglobin 27.4 pg (26.0-33.0) Mean Corpuscular Hemoglobin Concent 33.2 g/dL (32.0-36.0) Red Cell Distribution Width 16.6 % (11.5-14.5) Platelet Count 259 K/uL (150-450) Mean Platelet Volume 7.9 fL (7.2-11.1) Neutrophils (%) (Auto) 83.4 % (39.4-72.5) Lymphocytes (%) (Auto) 8.2 % (17.6-49.6) Monocytes (%) (Auto) 7.9 % (4.1-12.4) Eosinophils (%) (Auto) 0.1 % (0.4-6.7) Basophils (%) (Auto) 0.4 % (0.3-1.4) Nucleated RBC Relative Count (auto) 0.1 /100WBC Neutrophils # (Auto) 14.4 K/uL (2.0-7.4) Lymphocytes # (Auto) 1.4 K/uL (1.3-3.6) Monocytes # (Auto) 1.4 K/uL (0.3-1.0) Eosinophils # (Auto) 0.0 K/uL (0.0-0.5) Basophils # (Auto) 0.1 K/uL (0.0-0.1) Nucleated RBC Absolute Count (auto) 0.01 K/uL Glomerular Filtration Rate Calc > 60.0 Calcium Level 9.1 mg/dl (8.4-10.2) Total Bilirubin 0.9 mg/dl (0.2-1.3) Aspartate Amino Transf (AST/SGOT) 20 U/L (0-35) Alanine Aminotransferase (ALT/SGPT) 39 U/L (0-56) Alkaline Phosphatase 92 U/L (0-126) Total Protein 8.1 g/dl (6.3-8.2) Albumin 4.1 g/dl (3.5-5.0) ED Course/Re-evaluation Clinical Indication for ER IV: Hydration, IV Access ED Course Checked pts cultures from last night. Pts urine shows for gram negative rods with sensitivities to follow. Pts blood cultures are negative and were reincubated. will recheck pts chemistries due to pt had contrast yesterday and is on metformin. Will repeat cbc and a blood culture. will start IV abx 08/01/2018 0220 PTs labs are back. Pts wbc is elevated but same as yesterday. Pts glu is elevated and pt has not picked up the glipizide sccript that was ordered. Pt is not on her metformin due to the ct yesterday with contrast. Will give pt her glipizide. PTs abx has completed. Pt still with 600ml bolus remaining. PTs going to go home with family. Will have her urine culture followed to check sensitivites. PT requested a script of diflucan stating she always gets a yesat infection on abx. script sent with her abx to pharmacy. Decision to Disposition Date: Aug 01, 2018 Decision to Disposition Time: 03:11 Depart Departure Latest Vital Signs Vital Signs Date Time Temp Pulse Resp B/P (MAP) Pulse Ox O2 Delivery O2 Flow Rate FiO2 08/01/18 03:19 101 120/77 (91) 92 08/01/18 02:45 100.1 08/01/18 01:14 2.0 08/01/18 01:14 28 Nasal Cannula Impression: Primary Impression: Gram-negative infection Additional Impression: UTI (urinary tract infection) Condition: Condition Unchanged Disposition: HOME OR SELF-CARE Referrals: EYAD GARCIA PA-C (PCP) 2 Days New Scripts Fluconazole (DIFLUCAN) 150 Mg Tablet 150 MG PO QDAY, #1 TAB Prov: MARQUITA PARDO DO 08/01/18 Cephalexin 500 Mg Tab (KEFLEX 500 MG TAB) 500 Mg Tablet 500 MG PO BID, #14 TAB Prov: MARQUITA PARDO DO 08/01/18 Patient Instructions: Urinary Tract Infection in Women (ED) Additional Instructions: It is important that you fill your antibiotic. Keflex 500mg twice a day for 7 days. Follow up with your doctor. We will call you if your antibiotics needs to be changed Return as needed. Problem Qualifiers Additional Impression: UTI (urinary tract infection) Urinary tract infection type: site unspecified Hematuria presence: without hematuria Qualified Codes: N39.0 - Urinary tract infection, site not specified MARQUITA PARDO DO Aug 01, 2018 01:26
[2018-08-01] MEDS ORDERED: ACETAMINOPHEN 325 MG TAB PO ONE ×2 (01:30→01:50)
[2018-08-01] MEDS ORDERED: cefTRIAXone 1 GM VIAL IVP ONE (01:30)
[2018-08-01] MEDS ORDERED: NS(*) 0.9% 1000 ML BAG 1,000 ML IV ONE (01:30)
[2018-08-01] MEDS ORDERED: APAP/HYDROCODONE 325/10 TAB PO ONE (01:50)
[2018-08-01 02:04] LABS: PLATELET COUNT, AUTOMATED 259 K/uL (150-450)
[2018-08-01] MEDS ORDERED: glipiZIDE 5 MG TAB PO ONE (02:25)
[2018-08-01] MEDS ORDERED: CEPH500T7 PO (02:52)
[2018-08-01 03:19] VITALS: BP 120/77
[2018-08-01] MEDS ORDERED: FLUC150T40 PO (03:30)
== END 2018-08-01 03:28 | disposition home or self-care (01) ==
LOC: ER 01:30
DX: N39.0 Urinary tract infection, site not specified (principal); A49.9 Bacterial infection, unspecified
CPT/HCPCS: 85025; 87040; 96361; 96374; 99284; J0696; J7030; 82040; 82247; 82310; 82374; 82435; 82565; 82947; 84075; 84132; 84155; 84295; 84450; 84460; 84520

== ENCOUNTER → 2018-08-04 | Outpatient (REF) | payer BC ==
[2018-01-01 09:14] VITALS: BMI 50.2
[~2018-08-04] MED LIST changes: +CEPH500T7 PO; +FLUC150T40 PO
== END ==
LOC: ZZSENDIN 11:33
PROVIDERS: ATTEND Physician Assistant
DX: R19.7 Diarrhea, unspecified (principal)
CPT/HCPCS: 83630; 87045; 87324; 87449

== ENCOUNTER → 2018-08-22 | Outpatient (REF) | payer BC ==
[2018-01-01 09:14] VITALS: BMI 50.2
[~2018-08-22] MED LIST changes: -HYDR-4309 PO; +HYDR-653 PO
== END ==
LOC: ZZSENDIN 14:24
PROVIDERS: ATTEND Family Medicine
DX: N39.0 Urinary tract infection, site not specified (principal)
CPT/HCPCS: 81001; 87088

== ENCOUNTER → 2018-08-22 | Outpatient (CLI) | payer BC ==
[2018-01-01 09:14] VITALS: BMI 50.2
--- NOTE | 2018-08-22 16:08 | RADIOLOGY IMAGING REPORT ---
FAC[place] [facility] [place] NAME: Shani Azul : 1960 MR: [id number] V: [id number] EXAM DATE: ORDERING PHYSICIAN: RUTH ANN ALDRIDGE TECHNOLOGIST: Location: [facility] Patient: Shani Azul : 1960 Visit/Account:[id number] Date of Sevice: 08/22/2018 ABDOMEN/PELVIS W/O CONTRAST HISTORY: Generalized back pain, history of kidney stones TECHNIQUE: Axial images acquired through the abdomen/pelvis. Coronal and sagittal reformatting also performed. No IV contrast administered.Dose Lowering Technique One of the following dose optimization techniques was utilized in the performance of this exam: Autom ated exposure control; adjustment of the mA and/or kV according to the patient's size; or use of an i terative reconstruction technique. Specific details can be referenced in the facility's radiology C T exam operational policy. COMPARISON: July 30, 2018 and June 12, 2017 FINDINGS: Visualized lung bases: There are numerous noncalcified bilateral pulmonary nodules largest measuring up to 1 cm is appear stable when compared to the most recent CT. There does appear to be slight int erval increase in some of the nodules when compared the prior study from June 12, 2017. There is a 6 mm nodule posterior aspect right lower lobe best seen on image 33 series 2 that is increased in si ze when compared to prior MR from June 12, 2017 Hepatobiliary: Cholelithiasis. Hepatomegaly with the liver measuring 25.5 cm in length Spleen: Negative. Adrenals: There is noted to left adrenal nodule measuring 1.8 x 1 cm containing fat appears similar to the prior study likely representing a tiny myolipoma Pancreas: Negative. Kidneys ureters and bladder: Is a 5 x 2 mm nonobstructing calculus lower pole calyx of the left kidne y is a lobular contour to the left kidney Genitalia: Negative. GI: Diverticulosis left-sided colon although no CT evidence of acute diverticulitis Vessels/spaces/nodes: There Is a 1.7 x 1.2 cm right common iliac lymph node appears relatively stable shotty retroperitoneal lymph nodes likewise appears stable Bones/soft tissues: There are postoperative changes at L4-5 and S1. Spondylotic changes seen elsewh ere throughout the visualized thoracolumbar spine. There is an umbilical hernia containing fat Additional findings: None pertinent. IMPRESSION: Are numerous noncalcified bilateral pulmonary nodules of uncertain etiology measuring up to 1 cm. Ma ny of these nodules appear stable although there is a 6 mm nodule posterior aspect right lower lobe i s slightly increased in size when compared to prior study from June 12, 2017. Cholelithiasis Hepatomegaly Thickened left adrenal nodule containing a tiny myolipoma 5 x 2 mm nonobstructing calculus lower pole calyx of the left kidney Additional chronic findings as described Report Dictated By: Faye Colvin MD at 08/22/2018 3:37 PM Report E-Signed By: Faye Colvin MD at 08/22/2018 4:04 PM WSN:[email or web address]
== END ==
LOC: CT 14:51
PROVIDERS: ATTEND Family Medicine
DX: R91.8 Other nonspecific abnormal finding of lung field (principal); K80.20 Calculus of gallbladder without cholecystitis without obstruction; N20.0 Calculus of kidney
CPT/HCPCS: 74176

== ENCOUNTER 2018-10-23 11:58 | Outpatient (RCR) | payer BC ==
[2018-01-01 09:14] VITALS: Ht 175.3 cm; Wt 149.7 kg
[~2018-10-23] VITALS: Ht 175.3 cm; Wt 149.7 kg
--- NOTE | 2018-10-23 16:12 | Medical Nutrition Therapy ---
Nutrition Anthropometrics Height (Inches): 69.00 Height (Calculated Centimeters: 175.970234 Weight (Pounds): 330 Weight (Calculated Kilograms): 149.157378 BMI: 48.7 Basil Nutrition Score: Basil Nutrition Risk Score: Dietary Referral Nutrition Risk Factors: Nutrition Risk Comment: Physical Findings Physical Appearance: Morbidly Obese 40+ Skin Appearance Skin Appearance: Edema Edema Location Modifier: Edema Location: Type of Edema: Degree of Edema: Gastrointestinal Symptoms GI Symtoms: Tube Present: Bowel Sounds: Recent Bowel Pattern: Stool Characteristics: Nutrition/Food History Good Alcohol Use: Occassional Exercise: No Nutritional Education Nutrition Education Topic: Diabetic Nutrition, Other Learning Barriers: Emotional, Hx Of Non-Compliance Learning Readiness: Interested Teaching Methods: Discussion, Handout, Demonstration Response to Teaching: Return demonstration, Verbalize understanding, Reinforcement needed Teaching Recipient: Patient, Family Nutrition Monitoring & Eval RD Patient Assessment Time: [address] Assessment Type: RD Education Nutritional Comment: Pt diagnosed approx 6 years ago with T2DM. Admits to checking BG in the past, but does not test now. Also concerned about nutrition regarding calcium oxolate kidney stones. Pt and daughter educated on importance of carbohydrate control at meals/snacks using the plate method as a guideline. Discussed nutrition strategies for kidney stones, including increased fuild intake, calcium intake, oxolate intake, etc. Pt and daughter able to plan simple meals without assistance. I personally spent a total of 90 minutes educating/counseling patient regarding nutrtion therapy for kidney stones and T2DM in a individual setting. See education section and my note above for details. Copies To Copies to: EYAD GARCIA PA-C ; EWELINA GOTTLIEB Oct 23, 2018 16:12
== END 2018-11-27 ==
LOC: DIET 11:58
PROVIDERS: ATTEND Physician Assistant
DX: E11.9 Type 2 diabetes mellitus without complications (principal); N20.0 Calculus of kidney; E66.9 Obesity, unspecified; Z68.42 Body mass index [BMI] 45.0-49.9, adult
CPT/HCPCS: G0108

== ENCOUNTER → 2019-02-08 | Outpatient (CLI) | payer BC ==
[2018-01-01 09:14] VITALS: BMI 50.2
--- NOTE | 2019-02-08 16:46 | RADIOLOGY IMAGING REPORT ---
FACILITY: PATIENT NAME: Shani Azul : 1960 MR: [id number] V: [id number] EXAM DATE: ORDERING PHYSICIAN: EYAD GARCIA TECHNOLOGIST: Location: [facility] Patient: Shani Azul : 1960 Visit/Account:[id number] Date of Sevice: 02/08/2019 Exam type: US VENOUS DOPPLER - UPPER EXT LT History: Lump on superficial lateral left elbow Comparison: None. Findings: The left upper extremity veins were imaged including the left internal jugular vein left subclavian v ein left axillary vein left cephalic vein left brachial vein left basilic vein left radial vein left ulnar vein revealing no evidence of intraluminal thrombi. The veins were compressible and demonstrat ed augmentation. Superior and lateral to the left elbow is a well-circumscribed ovoid hypoechoic soft tissue mass robi uring 1.6 x 1.3 x 0.7 cm. In the left axilla is a 3.4 x 3.7 x 2.1 cm ovoid hypoechoic mass with mixe d areas of increased echogenicity which may represent a large fatty replaced lymph node IMPRESSION: 1. No sonographic evidence DVT involving the left upper extremity veins Ovoid hypoechoic nodule with areas of increased echogenicity in the left axilla measuring 3.4 x 3.7 x 2.1 cm which may represent a large fatty replaced lymph node Superior lateral to the left elbow is a well-circumscribed ovoid hypoechoic soft tissue mass measurin g 1.6 x 1.3 x 0.7 cm this mass is nonspecific with differential diagnosis including both benign and m alignant etiologies Report Dictated By: Faye Colvin MD at 02/08/2019 4:38 PM Report E-Signed By: Faye Colvin MD at 02/08/2019 4:42 PM WSN:[email or web address]
== END ==
LOC: RAD 14:36
PROVIDERS: ATTEND Physician Assistant
DX: R22.32 Localized swelling, mass and lump, left upper limb (principal)

== ENCOUNTER → 2019-04-30 | Outpatient (CLI) | payer BC ==
[2018-01-01 09:14] VITALS: BMI 50.2
--- NOTE | 2019-04-30 17:24 | RADIOLOGY IMAGING REPORT ---
FACILITY: [facility] [place] PATIENT NAME: Shani Azul : 1960 MR: [id number] V: [id number] EXAM DATE: ORDERING PHYSICIAN: PATRICIA GOODWIN TECHNOLOGIST: Location: Patient: Shani Azul : 1960 Visit/Account:[id number] Date of Sevice: 04/30/2019 CT ABDOMEN PELVIS W/O CON HISTORY: History of kidney stones TECHNIQUE: Axial images acquired through the abdomen/pelvis. Coronal and sagittal reformatting also performed. No IV contrast administered.Dose Lowering Technique One of the following dose optimization techniques was utilized in the performance of this exam: Autom ated exposure control; adjustment of the mA and/or kV according to the patient's size; or use of an i terative reconstruction technique. Specific details can be referenced in the facility's radiology C T exam operational policy. COMPARISON: August 22, 2018 FINDINGS: Visualized lung bases: There is a 1.14 cm noncalcified slightly irregular nodule in the anterior med ial right middle lobe best appreciated on image four of series 3. This previously measured 1 cm . There is a 7 x 3 mm subpleural nodule lateral aspect of the right lower lobe best appreciated on imag e 32 which is increased from 6 x 2 mm previously. There is a 9 mm nodule posterior aspect right lowe r lobe best appreciated on image 44 previously measuring 7 mm there is a 5 mm nodule posterior aspect left lower lobe best appreciated on image 63 previously measuring 3 mm. Any of the other nodules carter ve remained relatively stable Hepatobiliary: There is cholelithiasis present although no evidence of biliary ductal dilatation. Liver is enlarged measuring 28.7 cm in length and has increased in size since the prior study Spleen: Negative. Adrenals: Tiny left adrenal myolipoma Pancreas: Negative. Kidneys ureters and bladder: There is a 5 x 2 mm nonobstructing calculus lower pole calyx of the left kidney Genitalia: Negative. GI: Negative. Vessels/spaces/nodes: No pathologically enlarged lymph nodes are identified Bones/soft tissues: There is a small umbilical hernia containing fat. There are postoperative small es lumbar spine Additional findings: None pertinent. IMPRESSION: Bilateral noncalcified pulmonary nodules again seen in the lower lung bhatti. Several of these have increased in size although some have remained stable. The largest has increased from 1 cm to 1.14 cm . [employer] SOC[employer] FOLLOW-UP GUIDELINES FOR NEWLY DETECTED INCIDENTAL NODULES IN PERSONS 35 YEARS OF AGE OR OLDER. *These recommendations do NOT apply to lung cancer screening, patients with immunosuppression or taylor ents with a known primary malignancy. MULTIPLE SOLID NODULES If nodule size is < 6 mm: * Low risk patient ? No routine follow-up. * High risk patient ? Optional CT at 12 months. If nodule size is 6-8 mm: * Low risk patient ? CT at 3-6 months, then consider CT at 18-24 months if no change. * High risk patient ? CT at 3-6 months, then CT at 18-24 months if no change. If nodule size is > 8 mm: * Low risk patient ? CT at 3-6 months, then consider CT at 18-24 months if no change. * High risk patient ? CT at 3-6 months, then consider CT at 18-24 months if no change. LOW RISK PATIENT: Minimal or absent history of tobacco use and of other known risk factors. HIGH RISK PATIENT: Tobacco use, family history of lung cancer, upper pulmonary lobe location of nodul e, presence of emphysema, pulmonary fibrosis, older age. Marcy H, Elaina DP, Fadio JM, et al. Guidelines for Management of Incidental Pulmonary Nodules Dete cted on CT Images: From the [employer]ner Society 2017. Radiology. [facility], [place] Cholelithiasis Hepatomegaly increase in size when compared the prior study 2 x 5 mm nonobstructing calculus lower pole calyx of the left kidney Additional chronic findings as described Report Dictated By: Faye Colvin MD at 04/30/2019 4:59 PM Report E-Signed By: Vivienne Glasgow at 04/30/2019 5:19 PM WSN:[email or web address]
== END ==
LOC: CT 00:27
PROVIDERS: ATTEND Urology
DX: R16.0 Hepatomegaly, not elsewhere classified (principal); N20.0 Calculus of kidney; K80.20 Calculus of gallbladder without cholecystitis without obstruction; R91.8 Other nonspecific abnormal finding of lung field
CPT/HCPCS: 74176

== ENCOUNTER 2019-05-20 20:29 | Emergency (ER) | payer BC ==
[2018-01-01 09:14] VITALS: BMI 50.2
--- NOTE | 2019-05-20 20:34 | ER Report ---
History and Physical Time Seen By MD: 20:30 HPI/ROS CHIEF COMPLAINT: Left arm pain HISTORY OF PRESENT ILLNESS: 58-year-old female with a complex medical history. Patient presents with approximately 18 hours of severe left arm pain unrelieved by her Vicodin tends. Patient's had pain in this arm similar to this and was evaluated extensively several months ago. [facility] and apparently had x-rays done, the EMG done. She has a venogram that was done back in January 2019 that was negative for DVT in this arm. Patient reports the symptoms are similar to her previous pain, but more intense. She did take ibuprofen 600 mg yesterday with little improvement. Patient has been applying wraps and applying heating pads to her left arm. Patient thinks the pain is related to her neck. Patient denies shortness of breath, diaphoresis, nausea or cardiac pain. She is a type II diabetic on metformin and oral agents. REVIEW OF SYSTEMS: Respiratory: No cough, no dyspnea. Cardiovascular: No chest pain, no palpitations. Gastrointestinal: No vomiting, no abdominal pain. Musculoskeletal: As above Allergies: Coded Allergies: No Known Drug Allergies (Unverified , 08/01/18) Home Meds Active Scripts Methocarbamol (ROBAXIN-750) 750 Mg Tablet, 1 TAB PO TID PRN for muscle spasm relief, #20 Prov:BESSTHOMASY Vivienne DO 05/20/19 Prednisone (PREDNISONE) 20 Mg Tablet, 20 MG PO QDAY for reduce nerve inflamma tion, #5 One by mouth daily to reduce nerve inflammation Prov:MACK KELLOGG DO 05/20/19 Hydromorphone Hcl (DILAUDID) 2 Mg Tablet, 2 MG PO Q4H PRN for PAIN, #9 Prov:MACK KELLOGG DO 05/20/19 Fluconazole (DIFLUCAN) 150 Mg Tablet, 150 MG PO QDAY, #1 TAB Prov:MARQUITA PARDO DO 08/01/18 Cephalexin 500 Mg Tab (KEFLEX 500 MG TAB) 500 Mg Tablet, 500 MG PO BID, #14 TAB Prov:MARQUITA PARDO V DO 08/01/18 Reported Medications Acetaminophen/Hydrocodone (HYDROCODON-ACETAMINOPHN 10-325) 1 Each Tab, 1 EACH PO QHS PRN for PAIN, TAB 05/29/18 Gabapentin (GABAPENTIN) 300 Mg Capsule, 900 MG PO QHS, CAPSULE 05/29/18 Lisinopril (LISINOPRIL) 10 Mg Tablet, 10 MG PO QDAY, TAB 05/29/18 Buspirone Hcl (BUSPIRONE HCL) 15 Mg Tablet, 15 MG PO BID, TAB 05/29/18 Oxybutynin Chloride (DITROPAN XL) 10 Mg Tab.er.24, 10 MG PO QDAY PRN for URGENCY, #20 TAB 04/27/18 Docusate Sodium (COLACE) 100 Mg Capsule, 100 MG PO BID, #30 CAPSULE 04/27/18 Gabapentin (GABAPENTIN) 300 Mg Capsule, 300 MG PO QAM, CAPSULE 05/17/17 Simvastatin (SIMVASTATIN) 20 Mg Tablet, 20 MG PO HS, TAB 03/25/17 Dulaglutide (Trulicity) 0.75 Mg/0.5 Ml Pen.injctr, 0.5 ML INJ QWEEK 03/25/17 Bupropion Hcl (WELLBUTRIN XL) 300 Mg Tab.er.24h, 300 MG PO QDAY, TAB 03/25/17 Glipizide (GLIPIZIDE) 10 Mg Tablet, 10 MG PO BID 03/25/17 Trazodone Hcl (TRAZODONE HCL) 150 Mg Tablet, 150 MG PO QHS 03/25/17 Metformin Hcl (METFORMIN HCL) 1,000 Mg Tablet, 1 TAB PO BID, TAB 03/25/17 Pramipexole Di-Hcl (PRAMIPEXOLE DIHYDROCHLORIDE) 0.125 Mg Tablet, 0.125 MG PO TID 03/25/17 Omeprazole (OMEPRAZOLE) 40 Mg Capsule.dr, 40 MG PO QDAY, CAP 03/25/17 Montelukast Sodium (SINGULAIR) 10 Mg Tablet, 1 TAB PO HS, TAB 03/25/17 Albuterol Sulfate 90 Mcg/Act (PROAIR HFA 90 MCG/ACT) 8.5 Gm Hfa.aer.ad, 2 PUFF IH Q4-6H PRN for SHORTNESS OF BREATH, INHALER 03/25/17 Budesonide/Formoterol Fumarate (SYMBICORT 160-4.5 MCG INHALER) 10.2 Gm Inh, 10.2 GM INH DAILY, INH 03/25/17 Reviewed Nurses Notes: Yes Old Medical Records Reviewed: Yes Hx Smoking: Yes (QUIT 1989. UP UNTIL THEN, SMOKED 1-2 PPD X 10 YRS) Smoking Status: Former Smoker Hx Substance Use Disorder: No Hx Alcohol Use: Yes Constitutional Vital Sign - Last 24 Hours 05/20/19 05/20/19 20:37 21:30 Temp 98.3 Pulse 99 79 Resp 18 B/P (MAP) 115/75 Pulse Ox 91 O2 Delivery Room Air Physical Exam Vital signs stable, afebrile, pulse ox normal General Appearance: The patient is alert, has no immediate need for airway protection and no current signs of toxicity. Mild distress Eyes: Pupils equal and round no injection. Respiratory: Chest is non tender, lungs are clear to auscultation. Cardiac: regular rate and rhythm Gastrointestinal: Abdomen is soft and non tender, no masses, bowel sounds normal. Musculoskeletal: Neck: Neck is supple. There is some tenderness over the right brachial plexus area. There is no increase in pain on rotation and compression of the cervical spine to the left. There is no pain in the shoulder. Patient points to the radial distribution of her left forearm. There is some tenderness at the wrist along the radius and up through the muscular bundle of the forearm. There is no alteration of sensation in the hand. It all appears to be normal and intact. She has a weak grasp. Extremities have full range of motion and are non tender. Skin: No rashes or lesions. DIFFERENTIAL DIAGNOSIS: After history and physical exam differential diagnosis was considered for tendinitis, neuropathy, radiculopathy, Medical Decision Making EKG/Imaging EKG Interpretation 12 lead EK Rhythm: normal sinus rhythm [place]: normal QRS: normal ST segments: normal, no evidence of ischemia or dysrhythmia Imaging X-ray: Cervical spine 4 views was obtained. I viewed the images myself on the PACS system. My interpretation of the images is: There is advanced degenerative disc disease of the lower cervical region. The radiologist interpretation had no clinically significant variation from this interpretation. ED Course/Re-evaluation ED Course Patient was admitted to an examination room. H&P was done. The differential diagnoses was considered. On clinical examination. Patient has severe left arm pain that is suspicious for neuropathy. There are no clinical findings on palpation of the arm to suggest other etiologies. She's had extensive evaluation in the past including a venogram/ultrasound of the left arm which was negative. She's had x-rays of her [facility]. Patient's medicated for pain with oral Dilaudid. EKG is unremarkable. Cervical spine x-rays are performed which showed degenerative disc disease, suspicious for the etiology. Patient be discharged home on low-dose steroid taper and Dilaudid for pain. She is advised to follow-up with primary care for MRI of her neck in consultation with Dr. Wesley Ruiz spinal surgeon at [facility]. Decision to Disposition Date: May 20, 2019 Decision to Disposition Time: 21:35 Depart Departure Latest Vital Signs Vital Signs Date Time Temp Pulse Resp B/P (MAP) Pulse Ox O2 Delivery O2 Flow Rate FiO2 05/20/19 21:30 79 05/20/19 20:37 98.3 18 115/75 91 Room Air Impression: Primary Impression: Left arm pain Additional Impression: Cervical radiculopathy Condition: Improved Disposition: HOME OR SELF-CARE Referrals: EYAD GARCIA PA-C (PCP) New Scripts Methocarbamol (ROBAXIN-750) 750 Mg Tablet 1 TAB PO TID PRN for muscle spasm relief, #20 Prov: MACK KELLOGG DO 05/20/19 Prednisone (PREDNISONE) 20 Mg Tablet 20 MG PO QDAY for reduce nerve inflammation, #5 One by mouth daily to reduce nerve inflammation Prov: MACK KELLOGG DO 05/20/19 Hydromorphone Hcl (DILAUDID) 2 Mg Tablet 2 MG PO Q4H PRN for PAIN, #9 Prov: MACK KELLOGG DO 05/20/19 Patient Instructions: Cervical Radiculopathy (ED) Additional Instructions: Follow-up with primary care or [facility] Dr. Ruiz spinal surgeon You will likely an MRI of her cervical spine Problem Qualifiers MACK KELLOGG DO May 20, 2019 20:34
[2019-05-20 20:37] VITALS: BP 115/75
[2019-05-20] MEDS ORDERED: IBUPROFEN 600 MG TAB PO ONE (20:50)
[2019-05-20] MEDS ORDERED: HYDROmorphone HCL 2 MG TAB PO ONE (20:50)
[2019-05-20] MEDS ORDERED: PRED20TA6 PO (21:42)
[2019-05-20] MEDS ORDERED: HYDR2TAB74 PO (21:42)
[2019-05-20] MEDS ORDERED: METH-543 PO (21:45)
[2019-05-20] MEDS ORDERED: HYDROmorphone 2 MG TAB TH 2 TAB/BOTTLE PO ONE (21:45)
[2019-05-20] MEDS ORDERED: predniSONE 20 MG TAB PO ONE (21:45)
--- NOTE | 2019-05-20 22:06 | RADIOLOGY IMAGING REPORT ---
FACILITY: [facility] - [place] PATIENT NAME: Shani Azul : 1960 MR: [id number] V: [id number] EXAM DATE: ORDERING PHYSICIAN: MACK KELLOGG TECHNOLOGIST: Location: [facility] Patient: Shani Azul : 1960 Visit/Account:[id number] Date of Sevice: 05/20/2019 CERVICAL SPINE MIN 4 VIEW INDICATION: Left arm pain. COMPARISON: None available. FINDINGS: AP, lateral, odontoid, and bilateral obliques of the cervical spine. Reversal of the normal lordosis in the lower cervical spine. Otherwise normal alignment. Normal vertebral body height. Multilevel degenerative disc disease and facet hypertrophy. No prevertebral soft tissue swelling. IMPRESSION: Multilevel degenerative disc disease and facet hypertrophy with reversal of the normal lo rdosis in the lower cervical spine. Report Dictated By: Maninder Young MD at 05/20/2019 9:56 PM Report E-Signed By: Maninder Young MD at 05/20/2019 9:58 PM [id number]
--- NOTE | 2019-05-21 00:13 | EKG ---
FACILITY: [facility] - [place] PATIENT NAME: AMEE GUADARRAMA : [id number] MR: [id number] V: [id number] EXAM DATE: ORDERING PHYSICIAN: MACK KELLOGG TECHNOLOGIST: HECTOR Wilhelm Reason : Blood Pressure : / mmHG Vent. Rate : 094 BPM Atrial Rate : 094 BPM P-R Int : 152 ms QRS Dur : 088 ms QT Int : 366 ms P-R-T Axes : 034 032 050 degrees QTc Int : 457 ms Normal sinus rhythm Normal ECG When compared with ECG of 01-JUN-2018 00:05, No significant change was found Confirmed by ELAINE WOO ([id number]) on 05/21/2019 6:36:27 AM Referred By: Confirmed By:ELAINE WOO
== END 2019-05-20 21:55 | disposition home or self-care (01) ==
LOC: ER 20:34
DX: M54.12 Radiculopathy, cervical region (principal); M79.602 Pain in left arm
CPT/HCPCS: 72050; 93005; 99284; A9270; J7512

== ENCOUNTER → 2019-05-30 | Outpatient (CLI) | payer BC ==
[2018-01-01 09:14] VITALS: BMI 50.2
[~2019-05-30] MED LIST changes: +HYDR2TAB74 PO; +METH-543 PO; +PRED20TA6 PO
--- NOTE | 2019-05-30 12:46 | RADIOLOGY IMAGING REPORT ---
[place] [facility] [place] Shani Azul : 1960 MR: [id number] V: [id number] EXAM DATE: ORDERING PHYSICIAN: VISHAL TATUM TECHNOLOGIST: Location: [facility] - [place] Patient: Shani Azul : 1960 Visit/Account:[id number] Date of Sevice: 05/30/2019 CT CHEST W/O CONTRAST HISTORY: Follow-up pulmonary nodule. TECHNIQUE: CT chest without intravenous contrast. One of the following dose optimization techniques was utilized in the performance of this exam: Autom ated exposure control; adjustment of the mA and/or kV according to the patient's size; or use of an i terative reconstruction technique. Specific details can be referenced in the facility's radiology C T exam operational policy. CONTRAST: None. COMPARISON: CT abdomen/post dated April 30, 2019. CT abdomen/pelvis dated March 25, 2017. FINDINGS: Heart/vessels: Prominence of the main pulmonary artery measuring up to 4.6 cm which is nonspecific h owever can be seen with pulmonary arterial hypertension. Otherwise negative. Mediastinum: Partially calcified ill-defined left thyroid nodule measuring approximately 2.2 cm in d iameter. Lymph nodes: Negative. Lungs/pleura: Numerous scattered pulmonary micronodules, some of which are out of view on the prior CT abdomen/pelvis's. No prior CT chest is available for comparison. The nodules which are viewed wi thin the lung bases are not significantly changed since exam from March 25, 2017 and are considered ann ign given chronicity. For example, a right lower lobe nodule measures 12 x 11 mm (image 209), previo usly 12 x 11 mm on exam from March 25, 2017 when measured in same fashion. A nodule within the anterio r aspect of the right middle lobe measures approximately 9 x 9 mm (image 2:30), previously 10 x 9 mm on exam from March 25, 2017. Additional nodules which were in view on the prior imaging are unchanged. Largest nodule out of view on prior imaging measures up to 7 x 5 mm (image 145 of series 4). Visualized upper abdomen: Hepatic steatosis within the partially visualized liver which is likely en larged. Otherwise negative. Bones/soft tissues: Negative. IMPRESSION: 1. Numerous pulmonary nodules throughout the lungs. No prior chest CT is available for comparison. Nodules which were in view on prior abdominal/pelvic CTs are unchanged dating back to 2017 and consi dered benign. The nodules which are out of view measured up to 6 mm in average diameter. Given stab ility of the nodules within the lung bases, these nodules are also likely stable and are favored jacki gn. Consider 1 year follow-up to ensure stability. 2. Partially calcified left thyroid nodule measuring up to 2.2 cm. Thyroid ultrasound is recommende d for further evaluation. 3. Additional incidental/chronic findings, as above. Report Dictated By: Chilo Terry MD at 05/30/2019 12:21 PM Report E-Signed By: Chilo Terry MD at 05/30/2019 12:37 PM WSN:[id number]
== END ==
LOC: CT 06:52
PROVIDERS: ATTEND Internal Medicine
DX: R91.8 Other nonspecific abnormal finding of lung field (principal); E04.1 Nontoxic single thyroid nodule
CPT/HCPCS: 71250